=== PATIENT | male | born 1955 | race Caucasian/White ===

== ENCOUNTER 2023-09-17 16:50 | Emergency (ER) | payer MEDICARE, OTHER, SELFPAY ==
[2023-09-17 16:54] VITALS: BP 107/52
[2023-09-17 17:01] VITALS: BMI 43.1
[2023-09-17 17:19] VITALS: BP 107/87
[2023-09-17 17:19] LABS: % Basophils 0.5 % (0-2); % Eosinophils 0.3 % (0-6); % Immature Granulocytes 0.9 % (0-0.5); % Lymphocytes 2.3 % (20.5-51.1); % Monocytes 3.1 % (1.7-9.3); % Neutrophils 92.9 % (42.2-75.2); Absolute Basophils 0.1 10^3/uL (0-0.2); Absolute Immature Granulocytes 0.1 10^3/uL (0-0.05); Absolute Lymphocytes 0.3 10^3/uL (1.2-3.4); Absolute Monocytes 0.3 10^3/uL (0.1-0.6); Hematocrit 30.2 % (39.0-52.0); Hemoglobin 9.9 g/dL (13.0-18.0); Mean Corp Hgb Conc. 32.8 g/dL (33.0-37.0); Mean Corpuscular Hgb 29.1 pg (27.0-31.0); Mean Corpuscular Volume 88.8 fL (80.0-94.0); Mean Platelet Volume 9.8 fL (7.4-10.4); Nucleated Red Blood Cells % 0 % (-); Platelet Count 145 10^3/uL (130-400); Red Cell Dist. Width 15.2 % (11.5-14.5); White Blood Cell Count 10.8 10^3/uL (4.8-10.8)
--- NOTE | 2023-09-17 17:26 | ED.GENMED ---
History of Present Illness
General
Chief Complaint: Heart Rate Problem
Time Seen by Provider: 09/17/23 17:04
Travel History
Have you had any contact with someone who has COVID-19?: No
Do you have any symptoms of coronavirus? Fever > 100 degrees, chills, cough, shortness of breath, sore throat, loss of taste or smell, muscle aches, or headache?: No
History of Present Illness
History of Present Illness:
68-year-old male presents to the emergency department from [facility] due to acute heart rate elevation and low pulse oximetry. Patient reportedly had heart rates in the 200s with SpO2 of 90% on room air. On arrival he is on 6
L nasal cannula. He is on dialysis Thursday and Thursday and did receive his routine treatments this week. On arrival to the emergency department the patient's vital signs of stabilized and he reports he feels well with no symptoms.
Past History
Past History
ED Past Medical History: Arrthythmia, CHF, HTN and Other (Sleep apnea)
ED Past Surgical History: Orthopedic and Other (Gastric bypass)
Social History
Tobacco: Former smoker
Living: with family
Review of Systems
Review of Systems
Allergies reviewed?: Yes
All Other Systems: ROS reviewed and negative except as documented in HPI and ROS
Phy Exam
Physical Exam
Physical Exam:
GEN: Well appearing, NAD, WDWN
HEENT: Oral mucosa moist, no scleral icterus
Cardiac: Irregular rhythm, controlled rate, no murmurs
Lung: No respiratory distress, no tachypnea, lungs clear to auscultation bilaterally
Chest: Right upper chest wall dialysis port present, site clean and dry
MSK: No gross deformity or injuries
Skin: Good color, no pallor or jaundice, no rashes
Neuro: AO x3, moves all extremities freely
Psych: Calm, cooperative
Course
Orders/Labs/Results
Orders:
Orders
09/17/23 17:05
EKG [Electrocardiogram (*1)] Urgent
Reason for Study: Tachycardia
EKG- Treatment ONCE
09/17/23 17:07
Complete Blood Count/With Diff Urgent
Comprehensive Metabolic Panel Urgent
09/17/23 18:09
CR Chest - 2 Views Urgent
Comment:
Reason For Exam: SOB
Abnormal Lab Results
09/17/23
17:07
RBC 3.40 L 10^6/uL
(4.70-6.10)
Hgb 9.9 L g/dL
(13.0-18.0)
Hct 30.2 L %
(39.0-52.0)
MCHC 32.8 L g/dL
(33.0-37.0)
RDW 15.2 H %
(11.5-14.5)
Abs Immat Gran (auto) 0.1 H 10^3/uL
(0-0.05)
Absolute Neuts (auto) 10.0 H 10^3/uL
(1.4-6.5)
Absolute Lymphs (auto) 0.3 L 10^3/uL
(1.2-3.4)
Immature Gran % 0.9 H %
(0-0.5)
Neutrophils % 92.9 H %
(42.2-75.2)
Lymphocytes % 2.3 L %
(20.5-51.1)
Sodium 132 L mmol/L
(135-145)
Potassium 3.1 L mmol/L
(3.5-5.1)
Chloride 95 L mmol/L
(98-107)
BUN 29 H mg/dl
(9-20)
Creatinine 3.9 H mg/dL
(0.7-1.3)
Glucose 152 H mg/dl
(70-99)
Total Protein 5.6 L g/dl
(6.3-8.2)
Albumin 3.3 L g/dl
(3.5-5.0)
09/17/23 17:07
09/17/23 17:07
Vital Signs
Initial and Last Documented VS:
Initial Vital Signs
Temp Pulse Resp BP Pulse Ox
99.4 F 93 17 107/52 94
09/17/23 16:54 09/17/23 16:54 09/17/23 16:54 09/17/23 16:54 09/17/23 16:54
Last Documented Vital Signs
Temp Pulse Resp BP Pulse Ox
99.4 F 90 23 107/87 95
09/17/23 16:54 09/17/23 17:30 09/17/23 17:30 09/17/23 17:19 09/17/23 17:30
MDM/Problems Addressed
MDM/Problems Addressed:
Patient remained in rate controlled atrial fibrillation throughout emergency department stay. He was recent hospitalized at this facility due to acute renal failure, at which time he was noted to be in A-fib and was treated with amiodarone. He
remained in A-fib at time of discharge. He is anticoagulated and there is no clinical sign of acute congestive heart failure at this time. He remained free of hypoxia and his work of breathing is normal. No indication for admission, will be
discharged back to his nursing facility in stable condition
*Critical Care Note
Total Time (30-74mins, 75-104mins- exclusive of procedures): Not Applicable
ED Attending Note
-
Portions of this chart may have been created with voice recognition software.� Occasional wrong word or��sound alike� substitutions may have occurred due to the inherent limitations of voice recognition software.
Discharge Plan
Departure
Patient Disposition: Home (Routine Discharge)
Date of Disposition: 09/17/23
Time of Disposition: 20:09
Patient with high blood pressure during this ER visit?: No
Discharge Problem:
Atrial fibrillation with RVR
Instructions: Atrial Fibrillation (DC)
Prescriptions:
No Action
Eliquis 5 MG tablet
5 mg PO BID
lidocaine [LMX 4] 4 % Cream
1 applic topical TIDPRN PRN (Reason: burning around Martins) Qty: 0 0RF
amiodarone [Pacerone] 200 mg Tablet
200 mg PO DAILY Qty: 10 0RF
albuterol sulfate 2.5 mg /3 mL (0.083 %) Solution For Nebulization
2.5 mg inhalation R Q4HPRN PRN (Reason: Wheezing and SOB) Qty: 0 0RF
nicotine (polacrilex) 2 mg Gum
4 mg PO Q4HPRN PRN (Reason: nicotine withrawal) Qty: 0 0RF
midodrine 5 mg Tablet
5 mg PO Q4HPRN PRN (Reason: SBP<110) Qty: 0 0RF
pregabalin 25 mg Capsule
25 mg PO HS Qty: 30 0RF
melatonin 3 mg Tablet
3 mg PO HSPRN PRN (Reason: insomnia)
furosemide 80 mg Tablet
80 mg PO SUTUTHSA
Refresh Classic (PF) 1.4-0.6 % dropperette
1 drops BOTH EYES Q6HPRN PRN (Reason: dryness and redness)
Referrals:
Nikhil Chaney DO [Family Provider] -
Geno Helton DO [Active] -
Activity Restrictions/Additional Instructions:
Follow up with cardiology regarding your atrial fibrillation
Interventions
Interventions:
*Risk Screen - Suicide Last Done: 09/17/23 16:54
*General Assessment Last Done: 09/17/23 16:54
*Neglect/Abuse Screening Last Done: 09/17/23 16:54
ED- Fall Risk Assessment Last Done: 01/25/24 16:54
*ED COVID-19 Vaccine History Last Done: 09/17/23 16:54
ED- Cardiac Assessment Last Done: 09/17/23 16:54
ED- Pulmonary Assessment Last Done: 09/17/23 16:54
[2023-09-17 17:33] LABS: ALT (SGPT) 17 U/L (0-50); AST (SGOT) 22 U/L (17-59); Albumin 3.3 g/dl (3.5-5.0); Alkaline Phosphatase 96 U/L (38-126); Blood Urea Nitrogen 29 mg/dl (9-20); Calcium 8.4 mg/dl (8.4-10.2); Carbon Dioxide 23 mmol/L (22-30); Chloride 95 mmol/L (98-107); Estimated Creatinine Clearance 24 ml/min; Glucose 152 mg/dl (70-99); Potassium 3.1 mmol/L (3.5-5.1); Sodium 132 mmol/L (135-145); Total Bilirubin 0.8 mg/dl (0.2-1.3); Total Protein 5.6 g/dl (6.3-8.2); eGFR 15.81
[2023-09-17 18:00] VITALS: BP 105/50
[2023-09-17 19:00] VITALS: BP 107/49
[2023-09-17 21:29] VITALS: BP 107/49
[2023-09-17 21:31] VITALS: BP 107/49
== END 2023-09-17 21:39 | disposition home or self-care (01) ==
LOC: EMR 16:50
PROVIDERS: EMERGENCY PHYSICIAN Emergency Medicine; FAMILY PHYSICIAN Internal Medicine
DX: I48.91 Unspecified atrial fibrillation (principal); Z87.891 Personal history of nicotine dependence
CPT/HCPCS: 99284; 71046; 80053; 85025; 93005

== ENCOUNTER 2023-09-18 13:04 | Inpatient (IN) | payer MEDICARE, OTHER, SELFPAY ==
[2023-09-18] VITALS (31 sets, daily range): BP systolic 83–125; BP diastolic 45–90; BMI 41.5; BMI 41.2
--- NOTE | 2023-09-18 10:45 | EDRN ---
pt resting in stretcher, no s/s of distress, pt reports 'tremors', this RN noticed RCW dialysis catheter, this RN also noticed that catheter is visible through skin on the pts right neck, provider notified
[2023-09-18 10:57] LABS: Lactic Acid 3.3 mmol/L (0.7-2.0)
[2023-09-18 11:01] LABS: % Basophils 0.3 % (0-2); % Eosinophils 0.3 % (0-6); % Immature Granulocytes 2.8 % (0-0.5); % Lymphocytes 2.5 % (20.5-51.1); % Monocytes 3.3 % (1.7-9.3); % Neutrophils 90.8 % (42.2-75.2); Absolute Basophils 0.1 10^3/uL (0-0.2); Absolute Immature Granulocytes 0.5 10^3/uL (0-0.05); Absolute Lymphocytes 0.4 10^3/uL (1.2-3.4); Absolute Monocytes 0.5 10^3/uL (0.1-0.6); Absolute Neutrophils 14.4 10^3/uL (1.4-6.5); Hematocrit 30.9 % (39.0-52.0); Mean Corp Hgb Conc. 32.4 g/dL (33.0-37.0); Mean Corpuscular Hgb 29.6 pg (27.0-31.0); Mean Corpuscular Volume 91.4 fL (80.0-94.0); Mean Platelet Volume 10.1 fL (7.4-10.4); Nucleated Red Blood Cells % 0 % (-); Platelet Count 150 10^3/uL (130-400); Red Blood Cell Count 3.38 10^6/uL (4.70-6.10); Red Cell Dist. Width 15.6 % (11.5-14.5); White Blood Cell Count 15.9 10^3/uL (4.8-10.8)
[2023-09-18 11:02] LABS: ALT (SGPT) 17 U/L (0-50); AST (SGOT) 29 U/L (17-59); Albumin 3.5 g/dl (3.5-5.0); Alkaline Phosphatase 82 U/L (38-126); Blood Urea Nitrogen 43 mg/dl (9-20); Calcium 8.3 mg/dl (8.4-10.2); Carbon Dioxide 24 mmol/L (22-30); Chloride 94 mmol/L (98-107); Estimated Creatinine Clearance 19 ml/min; Glucose 130 mg/dl (70-99); Potassium 4.3 mmol/L (3.5-5.1); Sodium 129 mmol/L (135-145); Total Bilirubin 1.1 mg/dl (0.2-1.3); eGFR 11.74
[2023-09-18 11:11] LABS: NT-proBNP > 27000 pg/ml; Troponin I 0.086 ng/ml
[2023-09-18 11:34] LABS: Urine Albumin Trace (Neg - Trace); Urine Bilirubin 2+ (Negative); Urine Character Slightly Cloudy (Clear); Urine Color Yellow; Urine Glucose Negative (Negative); Urine Ketone Negative (Negative); Urine Leukocyte 2+ (Negative); Urine Nitrite Negative (Negative); Urine Occult Blood Negative (Negative); Urine Specific Gravity 1.015 (<1.030); Urine Urobilinogen Negative (Neg - 1+)
--- NOTE | 2023-09-18 11:37 | ED.GENMED ---
History of Present Illness
General
Chief Complaint: Heart Rate Problem
Source: patient
Exam Limitations: none
Time Seen by Provider: 09/18/23 10:45
Nursing documentation reviewed up to this point in time: agreed with
Travel History
Have you had any contact with someone who has COVID-19?: No
Do you have any symptoms of coronavirus? Fever > 100 degrees, chills, cough, shortness of breath, sore throat, loss of taste or smell, muscle aches, or headache?: No
History of Present Illness
History of Present Illness:
Patient is a 68-year-old man with a past medical history of end-stage renal disease who was last dialyzed 2 days ago, and presents with fever and chills. Patient reports he did not feel well and he did not go to dialysis today. He denies chest
pain and cough. He denies abdominal pain.
Past History
Past History
ED Past Medical History: Arrthythmia, CHF, HTN, Renal failure and Other (Sleep apnea)
ED Past Surgical History: Orthopedic and Other (Gastric bypass)
Social History
Tobacco: Former smoker
Alcohol: Other
Drug: Other
Personal: Other
Living: with family
Family History
Family History: Other
Review of Systems
Review of Systems
Allergies reviewed?: Yes
All Other Systems: ROS reviewed and negative except as documented in HPI and ROS
Constitutional: Reports fever, fatigue and chills
EENT: Reports no symptoms
Respiratory: Reports no symptoms
Cardiac: Reports no symptoms
ABD/GI: Reports no symptoms
: Reports no symptoms
Musculoskeletal: Reports no symptoms
Skin: Reports other (Skin redness and breakdown by right chest wall dialysis catheter)
Neurological: Reports no symptoms
Endocrine: Reports no symptoms
Hematologic/Lymphatic: Reports no symptoms
Psychiatric: Reports no symptoms
Phy Exam
Physical Exam
Physical Exam:
Physical Exam
General: Patient appears pale and chronically ill. Appears tired but answers simple questions
Neck: supple. No meningismus. Dry mucous membrane
Heart: Irregular
Lungs: no acute respiratory distress. clear bilaterally
Abdomen: normal bowel sounds. not tender. no CVAT
Neuro: alert and oriented. no focal neurological deficits
Skin: Warmth and erythema and skin opening around right chest wall dialysis catheter
Psychiatric: well kept. interactive and cooperative
Extremities: no edema. no calf tenderness. negative homans. good distal pulses
Course
Orders/Labs/Results
Orders:
Orders
09/18/23 10:25
Electrocardiogram (*1) Urgent
Reason for Study: Shortness of Breath
CR Chest - 2 Views Urgent
Comment:
Reason For Exam: shortness of breath
09/18/23 10:26
EKG- Treatment ONCE
09/18/23 10:37
Complete Blood Count/With Diff Urgent
Comprehensive Metabolic Panel Urgent
Lactic Acid Urgent
Pro-BNP [NT-proBNP] Urgent
Troponin I Urgent
Blood Culture Urgent
MELISSA Source: Blood/Venous
Specimen Description:
09/18/23 11:08
COVID-19 Antigen Urgent
Source: Nasal Swab
Urinalysis Reflex To Culture Urgent
Date Specimen was Collected: 09/18/23
Time Specimen was Collected: 11:02
Urine Microscopic Reflex Cult Urgent
Influenza A+B Rapid Molecular Urgent
MELISSA Source: Nasal Swab
Specimen Description:
Date Specimen was Collected: 09/18/23
Time Specimen was Collected: 11:02
Urine Culture Urgent
MELISSA Source: U
Specimen Description:
Date Specimen was Collected: 09/18/23
Time Specimen was Collected: 11:02
09/18/23 11:32
Piperacillin/Tazo 4.5 Gram [Zosyn] 4.5 gram in 100 ml IV NOW
09/18/23 12:16
Piperacillin/Tazo 2.25 Gram [Zosyn] 2.25 grams in 50 ml IV NOW
09/18/23 12:22
0.9% Sodium Chloride 1000 ml [Nss] 1,000 ml IV BOLUS
09/18/23 12:30
Admit/Transfer Patient As Directed
Co-Sign Provider:
Level of Care: Inpatient admission
Assign to:: ICU
Physician / Group: Fernando
Diagnosis: Septic shock
Reason for Hospitalization: Sepsis, IV antibiotics
Expected length of stay greater than two midnights?: Yes
ELOS- Estimated Length of Stay in days: 4
I certify the patient meets the requirements for IP care: Yes
09/18/23 12:31
Code Status As Directed
Resuscitation Status: Full Code
Abnormal Lab Results
09/18/23 09/18/23
10:37 11:08
WBC 15.9 H 10^3/uL
(4.8-10.8)
RBC 3.38 L 10^6/uL
(4.70-6.10)
Hgb 10.0 L g/dL
(13.0-18.0)
Hct 30.9 L %
(39.0-52.0)
MCHC 32.4 L g/dL
(33.0-37.0)
RDW 15.6 H %
(11.5-14.5)
Abs Immat Gran (auto) 0.5 H 10^3/uL
(0-0.05)
Absolute Neuts (auto) 14.4 H 10^3/uL
(1.4-6.5)
Absolute Lymphs (auto) 0.4 L 10^3/uL
(1.2-3.4)
Immature Gran % 2.8 H %
(0-0.5)
Neutrophils % 90.8 H %
(42.2-75.2)
Lymphocytes % 2.5 L %
(20.5-51.1)
Sodium 129 L mmol/L
(135-145)
Chloride 94 L mmol/L
(98-107)
BUN 43 H mg/dl
(9-20)
Creatinine 5.0 H* mg/dL
(0.7-1.3)
Glucose 130 H mg/dl
(70-99)
Lactic Acid 3.3 H mmol/L
(0.7-2.0)
Calcium 8.3 L mg/dl
(8.4-10.2)
Troponin I 0.086 H* ng/ml
Total Protein 6.0 L g/dl
(6.3-8.2)
Urine Bilirubin 2+ A
(Negative)
Leukocyte Esterase Rfl 2+ A
(Negative)
Urine WBC (Reflex) 70-80 A /HPF
(0-5)
Urine Bacteria (Reflex) Many A
(Negative)
09/18/23 10:37
09/18/23 10:37
Vital Signs
Initial and Last Documented VS:
Initial Vital Signs
Temp Pulse Resp BP Pulse Ox
100.7 F H 82 20 98/55 95
09/18/23 10:09/18/23 10:09/18/23 10:29 09/18/23 10:29 09/18/23 10:29
Last Documented Vital Signs
Temp Pulse Resp BP Pulse Ox
100.7 F H 82 20 98/55 94
09/18/23 10:29 09/18/23 10:29 09/18/23 10:09/18/23 10:29 09/18/23 10:29
MDM/Problems Addressed
Differential Diagnosis Includes:
Infected dialysis catheter, bacteremia, pneumonia
MDM/Problems Addressed:
Patient presents with acute lethargy and fever
Chronic conditions affecting care: Kidney disease
*Radiology
Radiology exam reviewed: preliminary read by ED provider (Vascular congestion on chest x-ray. Chest x-ray read by me) and radiology read reviewed
*Pulse Oximetry
Patient hypoxic: no
*EKG
Interpreted by ED Provider?: Yes
Interpretation: abnormal
Comparison EKG: no changes
Rate: normal
Rhythm: atrial flutter
[place]: normal axis
Interval: normal interval
QRS Pattern: normal QRS
Ischemia: non-specific ST changes
*Cooler Man Interpretation
Rate: normal
Interpretation: abnormal
Rhythm: atrial flutter
*Critical Care Note
Total Time (30-74mins, 75-104mins- exclusive of procedures): 30 minutes
comment:
30 minutes of critical care given to patient including reviewing his recent admission, reassessing his blood pressure, discussing the case with nephrology and the hospitalist
Data Reviewed
Review of Other/Old Records Reveals: Discharge Summary (Discharge summary reviewed from 08/2023 when patient was admitted for encephalopathy due to metabolic abnormalities)
Source: patient
Prescriptions/Medications Considered But Not Given:
IV Zosyn given for likely bacteremia related to infected dialysis catheter
Further Testing Considered But Not Given:
IV fluids considered, however, given patient missed dialysis today and has pulmonary edema on chest x-ray, I decided to hold off on this for now
Patient Management
Discussion with other providers: Hospitalist and Other (Nephrology on-call)
Escalation/DeEscalation of care consider admission/obs:
Given my concerns for bacteremia and possible sepsis related to a right dialysis catheter, decision made to admit patient for IV antibiotics.
ED Attending Note
-
Portions of this chart may have been created with voice recognition software.� Occasional wrong word or��sound alike� substitutions may have occurred due to the inherent limitations of voice recognition software.
Discharge Plan
Departure
Patient Disposition: Admit
Date of Disposition: 09/18/23
Time of Disposition: 11:31
Admit to: Telemetry
Presentation/result/management discussed w/ accepting MD/DO: Hospitalist
Patient with high blood pressure during this ER visit?: No
Condition: Fair
Covid-19: Not Applicable
Discharge Problem:
Fluid overload, Fever, Hemodialysis catheter infection
Prescriptions:
No Action
Eliquis 5 MG tablet
5 mg PO BID
lidocaine [LMX 4] 4 % Cream
1 applic topical TIDPRN PRN (Reason: burning around Martins) Qty: 0 0RF
albuterol sulfate 2.5 mg /3 mL (0.083 %) Solution For Nebulization
2.5 mg inhalation R Q4HPRN PRN (Reason: Wheezing and SOB) Qty: 0 0RF
nicotine (polacrilex) 2 mg Gum
4 mg PO Q4HPRN PRN (Reason: nicotine withrawal) Qty: 0 0RF
midodrine 5 mg Tablet
5 mg PO Q4HPRN PRN (Reason: SBP<110) Qty: 0 0RF
melatonin 3 mg Tablet
3 mg PO HSPRN PRN (Reason: insomnia)
furosemide 80 mg Tablet
80 mg PO SUTUTHSA
Refresh Classic (PF) 1.4-0.6 % dropperette
1 drops BOTH EYES Q6HPRN PRN (Reason: dryness and redness)
levothyroxine 50 mcg Tablet
50 mcg PO DAILY@0700
gabapentin 300 mg Capsule
300 mg PO TID
amiodarone [Pacerone] 200 mg tablet
200 mg PO DAILY
Referrals:
Nikhil Chaney DO [Family Provider] -
Interventions
Interventions:
*Risk Screen - Suicide Last Done: 09/18/23 10:29
*General Assessment Last Done: 09/18/23 10:29
*Neglect/Abuse Screening Last Done: 09/18/23 10:29
ED- Fall Risk Assessment Last Done: 09/18/23 10:29
*ED COVID-19 Vaccine History Last Done: 09/18/23 10:29
ED- Cardiac Assessment Last Done: 09/18/23 10:29
ED- Pulmonary Assessment Last Done: 09/18/23 10:29
[2023-09-18 11:56] LABS: COVID-19 Antigen Negative (Negative)
--- NOTE | 2023-09-18 12:23 | HPS.HSE ---
Family Physician
-
Family Physician: Nikhil Chaney, DO
Chief Complaint
-
Fever, chills
History of Present Illness
68-year-old male with ESRD on dialysis here with complaints of fevers and chills. He is due for dialysis today.
Was seen in the emergency room yesterday for evaluation of tachycardia and hypoxia but was discharged.
Transfer back to the emergency room from his nursing facility today for fever and chills.
Medical History
Past Medical History
Past Medical History: Reports Other
Additional Past Medical History:
ESRD, dialysis Thursday
Paroxysmal atrial fibrillation
Chronic heart failure preserved EF
Chronic peripheral neuropathy
Essential hypertension
DENISSE
Gout
Morbid obesity
Past Surgical History: Reports Orthopedic and Other
Additional Past Surgical History:
Gastric bypass
Social History
Tobacco: Former Smoker
Alcohol: Former
Drug: None
Personal:
Living: [facility]
Family History
Family History: Not pertinent
Allergies / Home Medications
Allergies reflects when Allergies were last updated in [employer].
Home Medications with original date entered in [employer]
Allergy/Medication List:
Allergies
Allergy/AdvReac Type Severity Reaction Status Date / Time
cat dander Allergy sneezing, Verified 09/17/23 17:03
itchy eyes
vancomycin Allergy Rash Verified 09/17/23 17:03
Home Medications
apixaban 5 mg tablet (Eliquis) 5 mg PO BID Blood clot prevention/tx/AFib 06/07/21
albuterol sulfate 2.5 mg/3 mL (0.083 %) solution for nebulization 2.5 mg (3 mL) inhalation R Q4HPRN PRN Wheezing and SOB #0 mL 09/01/23
lidocaine 4 % topical cream (LMX 4) 1 applic topical TIDPRN PRN burning around Martins #0 grams 09/01/23
midodrine 5 mg tablet 5 mg PO Q4HPRN PRN SBP<110 #0 tabs 09/01/23
nicotine (polacrilex) 2 mg gum 4 mg PO Q4HPRN PRN nicotine withrawal #0 ea 09/01/23
furosemide 80 mg tablet 80 mg PO SUTUTHSA Fluid Retention/Swelling 09/17/23
melatonin 3 mg tablet 3 mg PO HSPRN PRN insomnia 09/17/23
polyvinyl alcohol-povidone (PF) 1.4 %-0.6 % eye drops in a dropperette (Refresh Classic (PF)) 1 drops BOTH EYES Q6HPRN PRN dryness and redness 09/17/23
amiodarone 200 mg tablet (Pacerone) 200 mg PO DAILY AFib 09/18/23
gabapentin 300 mg capsule 300 mg PO TID neuropathy 09/18/23
levothyroxine 50 mcg tablet 50 mcg PO DAILY@0700 Thyroid 09/18/23
Review of Systems
-
History Source: Patient
A 12 point ROS was completed and negative except as noted: Yes
Constitutional: Reports Fever, Fatigue and Chills
Physical Exam
Vital Signs
Vital Signs
Temp Pulse Resp BP Pulse Ox
100.7 F H 82 20 98/55 94
09/18/23 10:29 09/18/23 10:29 09/18/23 10:29 09/18/23 10:29 09/18/23 10:29
Physical Exam
General: Well Developed, Well Nourished, No Apparent Distress and Comfortable
HEENT: NormoCephalic, Anicteric and Moist mucous membranes
Respiratory: Clear
Cardiac: S1/S2 and Regular Rhythm
GI: Soft, Non Tender and Non Distended
Genito-urinary: Deferred by me
Musculoskeletal: No Clubbing, No Cyanosis and No Edema
Skin: Warm and Dry
Neuro: AO x 3
Hematologic/Lymphatic: No Lymphadenopathy
Psych: Calm
Laboratory Results
-
09/18/23 10:37
09/18/23 10:37
Laboratory Results
Lactic Acid 3.3 mmol/L (0.7-2.0) H 09/18/23 10:37
Total Bilirubin 1.1 mg/dl (0.2-1.3) 09/18/23 10:37
AST 29 U/L (17-59) 09/18/23 10:37
ALT 17 U/L (0-50) 09/18/23 10:37
Alkaline Phosphatase 82 U/L (38-126) 09/18/23 10:37
Troponin I 0.086 ng/ml H* 09/18/23 10:37
Impression/Plan
-
Septic shock -possibly due to infected dialysis catheter. Admit to ICU, give IV fluid bolus, may need vasopressors. Check blood cultures. Broad-spectrum antibiotics. Consult perianesthesia rn, ID.
Will need dialysis catheter removed if we prove that it is infected.
Lactic acidosis due to sepsis.
Troponin elevation -likely non-[place] troponin elevation in the setting of sepsis, ESRD. No chest pain. Troponins were also elevated during his recent hospitalization.
ESRD -on dialysis Thursday. Consult nephrology to dialyze today.
Hyponatremia -sodium 129. Should correct with dialysis.
Paroxysmal atrial fibrillation -continue amiodarone, Eliquis.
Hypothyroidism -continue Synthroid.
Chronic heart failure preserved EF - stable.
Chronic peripheral neuropathy
Chronic normocytic anemia -hemoglobin stable.
DENISSE
Morbid obesity due to excess calories
Full code
PT/OT
Left a voicemail for patient's to call me back.
[2023-09-18 12:27] LABS: Urine Bacteria Many (Negative); Urine Red Blood Cell 0-2 /HPF (0-2)
[2023-09-18] MEDS: ZOSYN 50 IV (12:27)
[2023-09-18] MEDS: NSS 1000 IV (12:27)
[2023-09-18 12:28] LABS: Urine White Cell 70-80 /HPF (0-5)
--- NOTE | 2023-09-18 12:37 | EDRN ---
the pt is resting in stretcher in the lowest position, side rails up x2, call yoo within reach, HOB elevated, no c/o pain, no c/o chest pain, no c/o SOB, Afib in the 80's on monitor, last BP 90/59 (70), IVF 1,000cc bolus administered along with IV
ABX, the pt is currently on RA Sp02 96%, will continue to monitor the pt closely
--- NOTE | 2023-09-18 14:57 | CON.MD ---
Consultation - Medical
-
IMP:
Septic shock -suspected infected dialysis catheter vs UTI
Troponin elevation -likely non-DC
Recent YOHANNES with CKD 3B vs 4, HD dependent since 08/18/23-[facility] at [facility]
Heart failure with preserved EF
Hypertension with relative hypotension
History of gastric bypass
Back pain
Hyponatremia
Paroxysmal atrial fibrillation recent ablation at [facility]
Hypothyroidism
Chronic peripheral neuropathy
Chronic normocytic anemia
DENISSE
Morbid obesity due to excess calories
Plan:
A/w fever,suspected infected HD catheter site and sepsis however he does c/o dysuria too
plan HD today as per schedule
likely d/c catheter and send tip if cx are positive
BP improving post 1lit NS
CXR mild CHF, resp status seem at baseline
abx per primary
[id number]
--- NOTE | 2023-09-18 15:08 | PHA.VAN.IN ---
Assessment
- Assessment
Renal Function: Patient has ESRD, on chronic Hemodialysis
Hemodialysis Schedule: MWF
Concomitant Antimicrobials: cefepime
- Previous Dosing Experience
Previous Regimen: NONE
Plan
- Plan
Initial / Loading Dose: 1500MG
Maintenance Regimen: DOSING BY RANDOM LEVELS
Monitoring: RANDOM VANCOMYCIN LEVEL 09/19/23 AM
Pharmacokinetics Vancomycin I
- -
Patient Age: 68
Patient Sex: Male
Vancomycin Day #: 1
Indication: Bacteremia
Requesting Provider: LIZETT
Pertinent Antimicrobial Allergies:
Allergies
vancomycin Allergy (Verified 09/17/23 17:03)
Rash
Verified with patient - appears to be infusion rxn 09/18/23
Height / Weight:
Height 5 ft 10 in
Actual Weight 131.3 kg
- Vital Signs / Lab Results
Temp Pulse Resp BP Pulse Ox
100.7 F H 103 32 125/70 95
09/18/23 10:29 09/18/23 13:15 09/18/23 13:15 09/18/23 13:00 09/18/23 13:15
Lab Results - Hematology
09/18/23
10:37
WBC 15.9 H
Lab Results - Chemistry
09/18/23
10:37
BUN 43 H
Creatinine 5.0 H*
Estimated Creat Clear 19
Albumin 3.5
09/18/23
10:37
Lactic Acid 3.3 H
Lab Results - Urine
09/18/23
11:08
Urine Nitrite (Reflex) Negative
Leukocyte Esterase Rfl 2+ A
Urine WBC (Reflex) 70-80 A
Ur Squamous Epith Cells 6-10
Urine Bacteria (Reflex) Many A
Microbiology Results
09/18/23 11:08 Influenza Types A & B (HANNAH) - Final
Nasal Swab Negative for Influenza A & B, NAAT
Negative results must be combined with clinical observations
and patient history.
Nucleic Acid Amplification test (NAAT)performed on the
[email or web address] platform.
[2023-09-18] MEDS: VANCOCIN 300 MG IV (15:26)
[2023-09-18] MEDS: VANCOCIN 300 ML IV (15:26)
--- NOTE | 2023-09-18 15:28 | EDRN ---
this RN noticed that the pts Sp02 dipped to 92%, this RN notified provider and 2L NC was placed on the pt and the Sp02 came up to 96%, this RN also notified the provider that the pt is febrile at 101.5
[2023-09-18] MEDS: TYLENOL 650 MG PO ×2 (15:31→20:54)
--- NOTE | 2023-09-18 15:33 | EDRN ---
the pt received PRN tylenol per providers orders, the pt is resting in stretcher in the lowest position, side rails up x2, call yoo within reach, HOB elevated, Afib in the 80-90's, last BP 120/65 (79), the pt is currently on 2L NC Sp02 96%, no c/o
pain, no s/s of distress, the pt continues to have tremors of the hands intermittently, this RN will call verbal report to ICU
--- NOTE | 2023-09-18 15:43 | EDRN ---
this RN placed a non occlusive dressing on right neck wound, provider notified
--- NOTE | 2023-09-18 15:54 | EDRN ---
verbal report called to the receiving NIPPING MACHINE OPERATOR, this RN did notify provider of the pts sodium level, no new orders received
[2023-09-18] MEDS: ProAmatine 5 MG PO (16:15)
[2023-09-18 16:18] LABS: Lactic Acid 1.7 mmol/L (0.7-2.0)
--- NOTE | 2023-09-18 16:19 | CM ---
Patient admitted to today from [facility]. Patient admitted to the [facility] from 09/03-09/18. Patient is a HD patient at facility and per Noemi at SNF has used 15 days. Noemi to call back with functional status
and LTC vs STC status pending review of facility documentation. CM will continue to follow for discharge planning needs.
Plan; return to SNF pending confirmation of status and family/patient choice.
[2023-09-18] MEDS: NEURONTIN 300 MG PO (16:27)
[2023-09-18] MEDS: MANNITOL 12.5 GRAMS IV ×2 (16:45→17:57)
[2023-09-18] MEDS: FLEXBUMIN 25% FOR HEMODIALYSIS 12.5 GRAMS IV ×2 (17:45→17:56)
[2023-09-18 17:51] LABS: INR 2.68; PT 28.9 Sec (11.4-14.6)
[2023-09-18 17:52] LABS: APTT 47.9 Sec (23.4-35.0)
--- NOTE | 2023-09-18 17:56 | CON.INTV ---
Consultation
Consultation Request
Date/Time Consultation Requested: 09/18/2023 - 135
Date/Time Consultation Performed: 09/18/2023 - 1719
Requesting Provider: Dr. King
Performing Provider: Dr. Wilde
Reason for Consultation: Severe sepsis/hypotension with impending shock
Medical History
-
Chief Complaint: Fever
History of Present Illness:
68-year-old morbidly obese male former tobacco smoker with a past medical history of recent YOHANNES on CKD nondependent on HD MWF, HFpEF, hypertension now with relative hypotension, paroxysmal A-fib s/p ablation at [facility] on Eliquis, hypothyroidism, and
DENISSE who presents with fevers and chills from [facility]. Staff called 911 as the patient had increased heart rate with tremors. EMS noted the patient was in A-fib with heart rate in the 80s, placed him on 2 L/min and sats improved
from low 90s to the mid 90s. Patient endorsed shortness of breath without chest pain. He was confused but able to answer questions appropriately and move all extremities. Patient was not dialyzed today even though it is his dialysis day. Patient
has a right sided permacath which was placed on August 27, 2023, as he was hospitalized from 08/17/202309/02/2023 where he was diagnosed with YOHANNES on CKD from excessive NSAID use and required new onset dialysis after trial of failed diuretic
therapy did not improve kidney function during that hospitalization. He was discharged to SNF.
Today in the ER, his right-sided permacath is showing at the insertion site and there is some discharge from that area as well. Patient was febrile in the ER to 100.7, blood pressure 125/70, saturating 100% on room air. Labs showed leukocytosis to
15.9, Hb of 10, platelets 150, troponin 0.086, proBNP >27,000, hypomagnesemic to 1.4, hyponatremia to 129, he does make urine which showed +2 leukocyte esterase. He was given 1 L NS 0.9% as a bolus and started on Zosyn. Blood pressure was variable
dropping from the 120s down to the 80s/50s, and labs showed lactic acidosis to 3.3. Due to concern for septic shock he was transferred to ICU for further care, and family resource coordinator services consulted for additional management/recommendations.
When I saw the patient he was here in the ICU in no acute distress receiving dialysis via his right-sided permacath. He is a poor historian. He currently denies shortness of breath. He is in A-fib with heart rate in the 90s. Current SBP in the
120s. He denies chest pain, headache, abdominal pain, fevers or chills.
PMHx: YOHANNES on CKD now dependent on HD MWF, A-fib, chronic HFpEF, hypertension, DENISSE, gout, obesity, hypothyroidism, chronic peripheral neuropathy, chronic normocytic anemia
PSHx: Gastric bypass, A-fib ablation
Past Medical History
Past Medical History: Other (Above as per HPI)
Past Surgical History: Other (Above as per HPI)
Social History
Tobacco: Former Smoker
Alcohol: Former
Drug: None
Personal:
Living: Halfway
Family History
Family History: Reviewed & Not Pertinent
Allergies / Home Medications
Allergies
Allergy/AdvReac Type Severity Reaction Status Date / Time
cat dander Allergy sneezing, Verified 09/17/23 17:03
itchy eyes
vancomycin Allergy Rash Verified 09/17/23 17:03
Home Medications
Medication Instructions Recorded Confirmed Last Taken Type
apixaban 5 mg tablet (Eliquis) 5 mg PO BID Blood clot 06/07/21 09/18/23 06/19/21 19:00 History
prevention/tx/AFib
albuterol sulfate 2.5 mg/3 mL 2.5 mg (3 mL) inhalation R Q4HPRN 09/01/23 09/18/23 Unknown Rx
(0.083 %) solution for nebulization PRN Wheezing and SOB #0 mL
lidocaine 4 % topical cream (LMX 4) 1 applic topical TIDPRN PRN 09/01/23 09/18/23 Unknown Rx
burning around Martins #0 grams
midodrine 5 mg tablet 5 mg PO Q4HPRN PRN SBP<110 #0 tabs 09/01/23 09/18/23 Unknown Rx
nicotine (polacrilex) 2 mg gum 4 mg PO Q4HPRN PRN nicotine 09/01/23 09/18/23 Unknown Rx
withrawal #0 ea
furosemide 80 mg tablet 80 mg PO SUTUTHSA Fluid 09/17/23 09/18/23 Unknown History
Retention/Swelling
melatonin 3 mg tablet 3 mg PO HSPRN PRN insomnia 09/17/23 09/18/23 Unknown History
polyvinyl alcohol-povidone (PF) 1 drops BOTH EYES Q6HPRN PRN 09/17/23 09/18/23 Unknown History
1.4 %-0.6 % eye drops in a dryness and redness
dropperette (Refresh Classic (PF))
amiodarone 200 mg tablet (Pacerone) 200 mg PO DAILY AFib 09/18/23 09/18/23 Unknown History
gabapentin 300 mg capsule 300 mg PO TID neuropathy 09/18/23 09/18/23 Unknown History
levothyroxine 50 mcg tablet 50 mcg PO DAILY@0700 Thyroid 09/18/23 09/18/23 Unknown History
Review of Systems
-
History Source: Patient
All other systems: Negative unless noted (12 point ROS performed and is negative unless mentioned above.)
Vitals / Labs / Diagnostic Testing
Vital Signs
Temp Pulse Resp BP Pulse Ox
98.1 F 82 26 106/54 95
09/18/23 16:19 09/18/23 17:00 09/18/23 17:00 09/18/23 17:00 09/18/23 17:00
Lab Data
09/18/23 10:37
09/18/23 10:37
Microbiology
09/18/23 11:08 Nasal Swab Influenza Types A & B (HANNAH) - Final
Negative for Influenza A & B, NAAT
Negative results must be combined with clinical observations
and patient history.
Nucleic Acid Amplification test (NAAT)performed on the
[employer] NOW platform.
Diagnostic Testing:
Physical Exam
-
HEENT: Normocephalic and Anicteric
Cardiovascular: Irregular Rhythm (Irregularly irregular) and Other (Normal heart rate)
Respiratory: Clear, Wheeze (Negative), Rales (Negative) and Rhonchi (Negative)
GI: Soft, Non Distended and Non Tender
Neurology: Awake and Alert
Skin: Warm and Dry
General: Comfortable and Chills (Negative)
Assessment
-
Assessment: 68-year-old morbidly obese male former tobacco smoker with a past medical history of recent YOHANNES on CKD nondependent on HD MWF, HFpEF, hypertension now with relative hypotension, paroxysmal A-fib s/p ablation at [facility] on ,
hypothyroidism, and DENISSE who presents with fevers and chills from [facility]. There was concern for a right-sided permacath infection as part of the catheter was visible with discharge seen. He was BIBEMS and found to be hypotensive.
IV fluids given, antibiotic started and he was transferred to ICU where he underwent HD due to concern for septic shock with further worsening blood pressure during dialysis. Sand Polisher service is consulted for additional
management/recommendations.
Chronic conditions [employer]: YOHANNES on CKD now dependent on HD MWF, A-fib, chronic HFpEF, hypertension, DENISSE, gout, obesity, hypothyroidism, chronic peripheral neuropathy, chronic normocytic anemia,
Impression:
#Septic shock due to suspected perma-cath infection in setting of UTI
#Lactic acidosis due to above
#UTI
#Elevated troponin - likely type II MO in setting of shock
#YOHANNES on CKD now dependent on HD MWF
#Paroxysmal A-fib on is
#Morbid obesity
#Former tobacco use
Plan:
- Continue HD in ICU (without UF due to low BP) and monitor HDN closely; may need vasopressors to maintain MAP>65
- Keep HR <110; replete K>4, Mg>2
- Continue broad spectrum ABx with vanc/cefepime for now
- Nephrology consulted
- Will need permacath to be removed, and ideally give him few days of a line holiday, and then replace HD catheter on Thu- with a Kranthi until infection clears, and then he can get perma-cath as his discharge date approaches (assuming he
continues to improve)
- ID consulted --> right sided perma-cath site at his neck was swabbed --> follow up this Cx and check blood Cx and UA with UCx
- Trend lactate level until <2mmol/L
- continue to trend troponin level until begins to downtrend; if rises further then consider cardiolgoy consult
- Maintain SpO2 >90-94% with supplemental O2 as needed
- Maintain euglycemia with goal BG 140�180
- DVT prophylaxis
Critical care statement (Patient seen and evaluated on 09/18/2023): A total of 40 minutes of critical care time was provided for this patient today. This includes management of unstable vital signs, evaluation of the patient at bedside, reviewing the
patient's pertinent medical records including radiographs, microbiology, laboratory evaluations, and discussion with primary team, consultants, pharmacy, nutrition, physical therapy, case management, charge nurse, critical care nursing, and
respiratory therapy.
Data:
CXR 09-18-2023:
Low lung volumes.
Cardiomegaly with slightly prominent pulmonary vascularity, possibly representing mild CHF versus acute pulmonary edema.
[2023-09-18] MEDS: RETACRIT 3000 UNITS IV (17:58)
[2023-09-18 18:05] LABS: Troponin I 0.092 ng/ml
--- NOTE | 2023-09-18 18:11 | PTCARENOTE ---
Pt arrived to ICU via stretcher approx 1615 from ER. Complete assessment and admission done. Wound consult put in for R neck open wound from R upper arm HD cath placement 08/18/23, wound not approximated. Cleaned with NS and 2x2 drsg applied. Foam
drsgs applied to reddened sacrum and bilat heels for protection. Moisture wound noted in sacral rectal fold, barrier oint applied. Wound care consulted. Pt with hx of MRSA in Dec, MRSA swab obtained and sent to lab. Pt put on modified enhanced
isolation. Pt awake and oriented to name and place, forgetting the year. HD started at 1700 in room, 5 mg po midodrine given for hypotensive on arrival. R upper arm HD cath present. Abd obese, +BSs. Pt oliguric. Lactic 3.3 in ER, repeat= 1.7. PT/PTT
and trop sent on arrival. Call at pt's side in reach.
--- NOTE | 2023-09-18 18:24 | CON.ID ---
Consultation
-
Date/Time Consultation Requested: 09/18/2023 1359
Date/Time Consultation Performed: 09/18/2023 1800
Requesting Provider: Dr. King
Performing Provider: Dr. Liao
Reason for Consultation: Fever
Chief Complaint / Past History
History of Present Illness
Zenon Frias is a 68-year-old male with a significant past medical history of ESRD�HD being evaluated at the request of Dr. King in regards to fever. The patient presented to [facility] ER on 09/17/2023 from a rehab facility secondary to
tachycardia and depressed pulse ox. Workup was unrevealing, and he was discharged, but he returns today secondary to fever and chills. He reports he did not feel well and did not go to his dialysis session today. No history of chest pain or
cough. No abdominal pain.
Since presentation he has developed fever to 101 degrees. Additionally, he is found to have a leukocytosis today, and Infectious Diseases is asked to comment upon antibiotic management.
Further history obtained indicates that the patient recently has started hemodialysis. Temporary catheter was placed on 08/18/2023, with a permanent tunneled HD catheter being placed on 08/27/2023 in the right IJ area. The patient reports that he
occasionally is having discomfort in the right neck area. He admits to rigors over the past several days. He denies any cough.
Past History
Additional Past Medical History:
ESRD�HD
Paroxysmal A-fib
CHF
Peripheral neuropathy
HTN
DENISSE
Gout
Morbid obesity
Additional Past Surgical History:
Gastric bypass
Allergy History:
cat dander Allergy (Verified 09/17/23 17:03)
sneezing, itchy eyes
vancomycin Allergy (Verified 09/17/23 17:03)
Rash
Medications Reviewed: Yes
Current Antibiotics:
Vancomycin
Cefepime
Social History
Tobacco: Non-Smoker
Alcohol: None
Drug: None
Employment: Not Employed
Review of Systems
Vital Signs
Temp Pulse Resp BP Pulse Ox
98.1 F 82 26 106/54 95
09/18/23 16:19 09/18/23 17:00 09/18/23 17:00 09/18/23 17:00 09/18/23 17:00
Physical Exam
Physical Exam
Constitutional: No Acute Distress, Comfortable and Non-toxic
Eyes: No Conjunctival Hemorrhage and Sclera Anicteric
Oral: No Thrush and No Ulcers
Cardiovascular: S1/S2; Negative S3/S4 or Murmur
Pulmonary: Clear and Non Labored; Negative Wheezes, Rales or Rhonchi
Gastrointestinal: Soft, Non Tender, Non Distended and Normal Bowel Sounds
Genito-Urinary: Negative Martins
Extremities: Edema; Negative Cyanosis or Erythema
Neurological: Other (Somnolent but arousable. Conversant.)
Psychological: Calm
Lines: HD Cath (Right IJ tunneled HD catheter with purulence at the proximal insertion site.)
.
Lab / Diagnostic Study Results
09/18/23 10:37
09/18/23 10:37
Abs Immat Gran (auto) 0.5 10^3/uL (0-0.05) H 09/18/23 10:37
Absolute Neuts (auto) 14.4 10^3/uL (1.4-6.5) H 09/18/23 10:37
Absolute Lymphs (auto) 0.4 10^3/uL (1.2-3.4) L 09/18/23 10:37
Absolute Monos (auto) 0.5 10^3/uL (0.1-0.6) 09/18/23 10:37
Absolute Basos (auto) 0.1 10^3/uL (0-0.2) 09/18/23 10:37
Immature Gran % 2.8 % (0-0.5) H 09/18/23 10:37
Neutrophils % 90.8 % (42.2-75.2) H 09/18/23 10:37
Lymphocytes % 2.5 % (20.5-51.1) L 09/18/23 10:37
Monocytes % 3.3 % (1.7-9.3) 09/18/23 10:37
Eosinophils % 0.3 % (0-6) 09/18/23 10:37
Basophils % 0.3 % (0-2) 09/18/23 10:37
PT 28.9 Sec (11.4-14.6) H 09/18/23 17:27
INR 2.68 09/18/23 17:27
Lactic Acid 1.7 mmol/L (0.7-2.0) 09/18/23 15:46
Ur Squamous Epith Cells 6-10 /LPF (Few) 09/18/23 11:08
Microbiology Results
Micro:
09/18/23 17:27 MRSA Screen - Pending
Nose
09/18/23 11:08 Influenza Types A & B (HANNAH) - Final
Nasal Swab Negative for Influenza A & B, NAAT
Negative results must be combined with clinical observations
and patient history.
Nucleic Acid Amplification test (NAAT)performed on the
[employer] NOW platform.
09/18/23 11:08 Urine Culture - Pending
Urine
09/18/23 10:37 Blood Culture - Pending
Blood/Venous
Assessment / Plan
Fevers
Suspected CLABSI (HD catheter; POA)
Leukocytosis
Anemia
Hyponatremia
ESRD�HD
Paroxysmal A-fib
CHF
Peripheral neuropathy
HTN
DENISSE
Gout
Morbid obesity
Recommendations:
Continue with empiric vancomycin and cefepime (agree with change from Zosyn)
I have obtained a wound culture from the proximal site and will send for further workup.
Given appearance of HD catheter, it is likely infected, and would recommend removal.
Follow pending blood cultures and wound culture.
Trend white count and temperature curve.
Care Review
Plan reviewed with: Physician (Critical Care; Nephrology)
[2023-09-18 18:53] LABS: Magnesium 1.4 mg/dl (1.6-2.3)
--- NOTE | 2023-09-18 19:04 | W.PN.NEPH.HD ---
Assessment
-
pt seen during HD
vitals stable with midodrine
limited UF only
HD catheter site completely examined pus and edema noted at proximal insertion site
will need to remove catheter and line holiday -IR notified, plan tomorrow
abx per ID
d/w ICU and ID
Progress Note - Hemodialysis
-
Date of Service: September 18, 2023
Duration: 30 minutes and 3 hours
Potassium Bath: 2
Calcium Bath: 2.5
Opti-Dialyzer: 160
Ultrafiltration: Other (1kg)
Blood Flow: 400
Dialysate Flow: 600
Heparin: no
EPO: [id number]
[2023-09-18 19:24] LABS: Hepatitis B Surface Antigen Negative (Negative)
[2023-09-18] MEDS: MAGNESIUM SULFATE 50 IV (19:39)
--- NOTE | 2023-09-18 19:58 | W.PN.SEPSIS ---
Sepsis
Vital Signs
Temp Pulse Resp BP Pulse Ox
98.1 F 82 26 106/54 95
09/18/23 16:19 09/18/23 17:00 09/18/23 17:00 09/18/23 17:00 09/18/23 17:00
Physical Exam
Physical Exam:
A focused exam was performed after fluid resuscitation.
Capillary Refill
Bilateral Upper Extremity:
Cristiane Time: Less than 3 sec
Bilateral Lower Extremity:
Cristiane Time: Less than 3 sec
Pulse Evaluation
Bilateral Radial:
Pulse Evaluation: Present
Bilateral Dorsalis Pedis:
Pulse Evaluation: Present
--- NOTE | 2023-09-18 20:11 | PTCARENOTE ---
Pt Aox3, ROSEBUD, VSS, Afib controlled on monitor. + edema to B/L LE. 2L NC sats >95%. SBP improved wit previos dose of midodrine. Abdomen is obese and soft, tender to the LLQ complains of intermittent pain especially with movement, pt claims he hashas
this pain before and it usually resolves on its own. Currently receiving Dialysis, and pt is Oliguric. Wound culture sent from right neck site. HD cath remains in place, plan for IR in the morning for cath removal and line holiday,
[2023-09-18 20:46] LABS: Hepatitis B Surface Antibody Indeterminate
[2023-09-18] MEDS: ELIQUIS 5 MG PO (20:54)
[2023-09-18] MEDS: MYLICON 80 MG PO (20:54)
[2023-09-18] MEDS: STERILE WATER FOR INJECTION 10 ML IV (22:09)
[2023-09-18] MEDS: MAXIPIME 1000 MG IV (22:10)
[2023-09-19] VITALS (15 sets, daily range): BP systolic 94–141; BP diastolic 49–78; BMI 41.0
[2023-09-19 05:18] LABS: Hematocrit 30.1 % (39.0-52.0); Hemoglobin 9.7 g/dL (13.0-18.0); Mean Corp Hgb Conc. 32.2 g/dL (33.0-37.0); Mean Corpuscular Hgb 29.3 pg (27.0-31.0); Mean Corpuscular Volume 90.9 fL (80.0-94.0); Mean Platelet Volume 9.8 fL (7.4-10.4); Platelet Count 116 10^3/uL (130-400); Red Blood Cell Count 3.31 10^6/uL (4.70-6.10); Red Cell Dist. Width 15.3 % (11.5-14.5); White Blood Cell Count 7.5 10^3/uL (4.8-10.8)
[2023-09-19 05:38] LABS: Vancomycin Random 9.7 ug/ml
[2023-09-19 05:44] LABS: Troponin I 0.075 ng/ml
[2023-09-19 05:46] LABS: Blood Urea Nitrogen 25 mg/dl (9-20); Calcium 8.3 mg/dl (8.4-10.2); Carbon Dioxide 27 mmol/L (22-30); Chloride 98 mmol/L (98-107); Estimated Creatinine Clearance 31 ml/min; Glucose 111 mg/dl (70-99); Potassium 4.3 mmol/L (3.5-5.1); Sodium 132 mmol/L (135-145); eGFR 21.67
--- NOTE | 2023-09-19 06:22 | PTCARENOTE ---
Pt more alert than earlier, able to answer all orientation questions, VSS, Afib on monitor, Attempts to place 2nd IV unsuccessful. Pt NPO since midnight for cath removal today. Bath and blood work completed.
--- NOTE | 2023-09-19 06:27 | PTCARENOTE ---
Blood cultures gram positive cocci in clusters
[2023-09-19] MEDS: SYNTHROID 50 MCG PO (07:09)
--- NOTE | 2023-09-19 07:14 | W.PN.ID1 ---
Date of Service
Date of Service: September 19, 2023
Today's Communication
Continue antibiotics. Await HD line removal.
Assessment / Plan
Fevers
Suspected CLABSI (HD catheter; POA)
Positive blood cultures (GPC clusters)
Leukocytosis
Anemia
Hyponatremia
ESRD�HD
Paroxysmal A-fib
CHF
Peripheral neuropathy
HTN
DENISSE
Gout
Morbid obesity
Recommendations:
Wound culture with gram-positive cocci; discontinue further cefepime.
Continue with vancomycin
For HD removal today.
- culture tip. Will check blood cultures following removal
Follow pending blood cultures and wound culture.
Trend white count and temperature curve.
Chief Complaint
-: Bacteremia and Other (HD line infection)
Subjective / Review of Systems
Review of Systems: No Fever and No Chills
Vital Signs / Physical Exam
Vital Signs
Vital Signs
Temp Pulse Resp BP Pulse Ox
97.2 F 68 20 116/60 100
09/19/23 03:30 09/19/23 05:15 09/19/23 05:15 09/19/23 03:00 09/19/23 05:15
Physical Exam
Constitutional: No Acute Distress, Comfortable and Non-toxic
Eyes: Sclera Anicteric
Cardiovascular: S1/S2; Negative S3/S4
Pulmonary: Clear; Negative Wheezes, Rales or Rhonchi
Gastrointestinal: Soft, Non Tender and Non Distended
Skin: Warm and Dry; Negative Rash or Jaundice
Lines: HD Cath (Right IJ. Purulence noted at proximal entry site.)
Objective Data
Lab Data
Lab Results
09/19/23 05:06
09/19/23 05:06
PT 28.9 Sec (11.4-14.6) H 09/18/23 17:27
INR 2.68 09/18/23 17:27
APTT 47.9 Sec (23.4-35.0) H 09/18/23 17:27
Estimated Creat Clear 31 ml/min 09/19/23 05:06
Lactic Acid 1.7 mmol/L (0.7-2.0) 09/18/23 15:46
Total Bilirubin 1.1 mg/dl (0.2-1.3) 09/18/23 10:37
AST 29 U/L (17-59) 09/18/23 10:37
ALT 17 U/L (0-50) 09/18/23 10:37
Alkaline Phosphatase 82 U/L (38-126) 09/18/23 10:37
Most recent labs reviewed.
Micro Results:
09/18/23 10:37 Blood Culture - Preliminary
Blood/Venous Positive culture in progress
Gram Stain - Preliminary
09/18/23 18:27 Wound Culture - Pending
Neck Gram Stain - Preliminary
09/18/23 17:27 MRSA Screen - Pending
Nose
09/18/23 11:08 Influenza Types A & B (HANNAH) - Final
Nasal Swab Negative for Influenza A & B, NAAT
Negative results must be combined with clinical observations
and patient history.
Nucleic Acid Amplification test (NAAT)performed on the
[employer] platform.
09/18/23 11:08 Urine Culture - Pending
Urine
Care Review
Total Time Spent with Patient (in minutes): Hospitalist
--- NOTE | 2023-09-19 07:39 | W.PN.HOSP.TC ---
Today's Communication/Plan
-
Remove dialysis catheter
Stop cefepime
Continue Lasix, vancomycin
Can transfer out of ICU later today if he remains stable
Assessment / Plan
Assessment / Plan
Gen-AAOx3, NAD, obese
HEENT-NC, AT, anicteric, clear oral mm
Neck-supple
CV-reg, no M, +S1/S2
Lungs-clear B/L
Abd-soft, NT, ND
Ext-no edema
Musculoskeletal-no cyanosis, clubbing
Skin-warm and dry
Neuro-grossly non-focal
Psych-calm, cooperative
Septic shock -possibly due to infected dialysis catheter.� Blood culture showed gram-positive cocci in clusters. Continue vancomycin. Wound culture from HD catheter exit site with gram-positive cocci. Can discontinue cefepime. Infectious disease
following. Recheck blood cultures. Hemodynamically stable. Has not required vasopressors. Anticipate transfer out of ICU later today if he remains stable.
Troponin elevation -likely non-VT troponin elevation in the setting of sepsis, ESRD.� No chest pain.� Troponins were also elevated during his recent hospitalization. Troponins have peaked.
ESRD -on dialysis Thursday.� Nephrology following. They recommend continuing Lasix.
Hyponatremia -sodium 132, improving.�
Paroxysmal atrial fibrillation -continue amiodarone, Eliquis.
Hypothyroidism -continue Synthroid.
Chronic heart failure preserved EF - stable.
Chronic peripheral neuropathy
Chronic normocytic anemia -hemoglobin stable.
DENISSE
Morbid obesity due to excess calories
Full code
PT/OT
Anticipated Discharge: > 48 hours
Subjective/Interval History
-
Date of Service: September 19, 2023
Patient seen and examined. Feels much better. No complaints.
Objective Data
-
Labs:
Laboratory Results
09/19/23
05:06
WBC 7.5
Hgb 9.7 L
Hct 30.1 L
Plt Count 116 L D
Sodium 132 L
Potassium 4.3
Chloride 98
Carbon Dioxide 27
BUN 25 H
Creatinine 3.0 H
Glucose 111 H
Calcium 8.3 L
Vital Signs:
Vital Signs
Temp Pulse Resp BP Pulse Ox
97.2 F 68 20 116/60 100
09/19/23 03:30 09/19/23 05:15 09/19/23 05:15 09/19/23 03:00 09/19/23 05:15
I&O
09/18/23 09/19/23 09/20/23
06:59 06:59 06:59
Intake Total 300 / 300 240 / 240
Balance 300 / 300 240 / 240
Review of Systems
-
History Source: Patient
All other systems: Reviewed and negative
[2023-09-19] MEDS: ELIQUIS 5 MG PO ×2 (08:00→20:15)
[2023-09-19] MEDS: PACERONE 200 MG PO (08:00)
[2023-09-19] MEDS: ProAmatine 5 MG PO (08:00)
--- NOTE | 2023-09-19 08:28 | W.PN.INTV ---
Today's Communication / Plan
Recommendations
IV vanco; ID on board
Check TTE
Encourage incentive spirometer
Stable for downgrade out of ICU to telemetry. Cuprous Chloride Helper/pulmonary service will sign off. Please reconsult if there are any additional questions/concerns, or if respiratory issues develop.
Assessment
-
Assessment: 68-year-old morbidly obese male former tobacco smoker with a past medical history of recent YOHANNES on CKD nondependent on HD MWF, HFpEF, hypertension now with relative hypotension, paroxysmal A-fib s/p ablation at [facility] on Eliquis,
hypothyroidism, and DENISSE who presents with fevers and chills from [facility]. There was concern for a right-sided permacath infection as part of the catheter was visible with discharge seen. He was BIBEMS and found to be hypotensive.
IV fluids given, antibiotic started and he was transferred to ICU where he underwent HD due to concern for septic shock with further worsening blood pressure during dialysis. Cuprous Chloride Helper service is consulted for additional
management/recommendations.
Chronic conditions LINE ASSIGNER: YOHANNES on CKD now dependent on HD MWF, A-fib, chronic HFpEF, hypertension, DENISSE, gout, obesity, hypothyroidism, chronic peripheral neuropathy, chronic normocytic anemia,
Impression:
#Septic shock due to suspected perma-cath infection - (shock state resolved) - perma-cath site is growing S aureus
#Staph aureus bacteremia due to above
#Lactic acidosis due to above -resolved
#Positive urinalysis likely due to asymptomatic bacteriuria
#Elevated troponin - likely type II HI in setting of shock - troponin peaked at 0.092 on 09/18/2023
#YOHANNES on CKD now dependent on HD MWF
#Paroxysmal A-fib on Eliquis
#Morbid obesity
#Former tobacco use
Plan:
- R-sided Permacath removed today from IR - follow up cath tip culture
- Continue IV vancomycin
- Check TTE to assure no endocarditis present
- Keep HR <110; replete K>4, Mg>2
- Follow up check blood Cx sensitivities (growing S aureus from 09/18/2023)
- Nephrology consulted
- Ideally give him few days of a line holiday, and then replace HD catheter on Thu- with a Kranthi until infection clears, and then he can get perma-cath as his discharge date approaches
- Maintain SpO2 >90-94% with supplemental O2 as needed
- Maintain euglycemia with goal BG 140�180
- DVT prophylaxis
Patient has done remarkably well over the last 12-24 hours. He is not requiring vasopressors and MAP is >65 and he is in no acute distress, mentating and feeling well
Dispo: Stable for downgrade out of ICU to telemetry. Cuprous Chloride Helper/pulmonary service will sign off. Thank you for allowing us to be involved in the care of this patient. Please reconsult if there are any additional questions/concerns, or if
respiratory issues develop.
Data:
CXR 09-18-2023:
Low lung volumes.
Cardiomegaly with slightly prominent pulmonary vascularity, possibly representing mild CHF versus acute pulmonary edema.
Subjective Dataa
Subjective Data
Date of Service:
Date of Service: September 19, 2023
Chief Complaint: Cuprous Chloride Helper Follow Up
Subjective:
Patient seen and evaluated today. He is sitting in the chair says he feels well. BP 141/78, heart rate 87. He is on room air. Saturating 94%. I told him that his urine culture is growing E. coli. When asked if he has any lower abdominal pain,
fevers, chills he says no. He denies any urinary frequency unless he 'drinks a lot.' He says that he only has burning when he pees when he has not 'peed in a while.' He says this burning sensation has been happening for many years. He currently
denies headache, chest pain, shortness of breath.
Right-sided permacath removed today.
Review of Systems
General: Other (12 point ROS performed and is negative unless mentioned above.)
Objective Data
Data Reviewed
Vital Signs / I&O / Oxygen:
Vital Signs
Temp Pulse Resp BP Pulse Ox
98.0 F 81 18 121/54 97
09/19/23 11:25 09/19/23 11:39 09/19/23 09:45 09/19/23 11:39 09/19/23 09:45
Intake and Output
09/18/23 09/19/23 09/20/23
06:59 06:59 06:59
Intake Total 300 / 300 480 / 480
Balance 300 / 300 480 / 480
SaO2 97
Nasal Cannula flow liters per 2
minute
Physical Exam
General: Comfortable
HEENT: Normocephalic and Anicteric
Cardiovascular: S1-S2, Irregular Rhythm, Peripheral Edema (Negative) and Other (normal rate)
Respiratory: Wheeze (n), Crackles (Bibasilar), Rhonchi (n) and Non-Labored Respirations
GI: Soft, Non Distended and Non Tender
Neurology: Awake and Alert
Skin: Warm and Dry
Labs/Micro/Reports
Lab Data
09/19/23 05:06
09/19/23 05:06
Laboratory Results
09/18/23
17:27
PT 28.9 H
INR 2.68
APTT 47.9 H
Microbiology
09/18/23 10:37 Blood/Venous Blood Culture - Preliminary
Staphylococcus aureus
09/18/23 10:37 Blood/Venous Gram Stain - Preliminary
09/18/23 18:27 Neck Wound Culture - Preliminary
Staphylococcus aureus
09/18/23 18:27 Neck Gram Stain - Preliminary
09/18/23 11:08 Urine Urine Culture - Preliminary
Escherichia coli
09/18/23 11:08 Nasal Swab Influenza Types A & B (HANNAH) - Final
Negative for Influenza A & B, NAAT
Negative results must be combined with clinical observations
and patient history.
Nucleic Acid Amplification test (NAAT)performed on the
[employer] platform.
--- NOTE | 2023-09-19 08:30 | PTCARENOTE ---
recd pt handoff at bedside, assessed as noted. Seen by Dr. King, aware of plans for the day. Ordered and eating breakfast. Awaiting IR for line removal. BP noted, midodrine per orders, see VS.
[2023-09-19] MEDS: VANCOCIN 200 IV (09:15)
--- NOTE | 2023-09-19 10:42 | VATNOTE ---
Paged to see pt by CHARLY Dickerson due to apparent IV infiltration of vancomycin. Dr. King contacted via tiger text for order for hyaluronidase at this time.
--- NOTE | 2023-09-19 10:45 | VATNOTE ---
Pt arm elevated and heat applied by PCN at this time per policy.
--- NOTE | 2023-09-19 10:45 | PTCARENOTE ---
IV site RFA found swollen (vanco infusing). infusion held, IV team here. Ice pack to swollen site.
[2023-09-19] MEDS: LASIX 80 MG PO (11:39)
[2023-09-19] MEDS: NICORETTE 4 MG PO ×2 (11:39→20:15)
[2023-09-19] MEDS: HYLENEX 30 UNITS SC ×10 (11:43→11:47)
--- NOTE | 2023-09-19 12:01 | VATNOTE ---
Injections complete at this time. More heat applied, arm still elevated.
--- NOTE | 2023-09-19 12:32 | W.PN.NEPH.PH ---
Today's Communication / Plan
-
cont supportive care
Assessment/Plan
-
IMP:
Septic shock -suspected infected dialysis catheter vs UTI
Troponin elevation -likely non-CA
Recent YOHANNES with CKD 3B vs 4, HD dependent since 08/18/23-[facility] at [facility]
Heart failure with preserved EF
Hypertension with relative hypotension
History of gastric bypass
Back pain
Hyponatremia
Paroxysmal atrial fibrillation recent ablation at [facility]
Hypothyroidism
Chronic peripheral neuropathy
Chronic normocytic anemia
DENISSE
Morbid obesity due to excess calories
Plan:
A/w fever,suspected infected HD catheter site and sepsis however has UTI too
plan to d/c HD cathteter today and send tip for culture
abx per ID
BP better today
cont lasix
line holiday for now, likely HD Thursday or thursday
-
-
Date of Service: September 19, 2023
CC / HPI / ROS
-
Chief Complaint:
YOHANNES with CKD-HD dependant
History of Present Illness:
tolerated HD on 09/18
BP improving, no fever
not on O2
Review of Systems:
no cp or sob
feels well
Labs
-
Labs:
WBC 7.5 10^3/uL (4.8-10.8) 09/19/23 05:06
RBC 3.31 10^6/uL (4.70-6.10) L 09/19/23 05:06
Hgb 9.7 g/dL (13.0-18.0) L 09/19/23 05:06
Hct 30.1 % (39.0-52.0) L 09/19/23 05:06
Plt Count 116 10^3/uL (130-400) L D 09/19/23 05:06
Sodium 132 mmol/L (135-145) L 09/19/23 05:06
Potassium 4.3 mmol/L (3.5-5.1) 09/19/23 05:06
Chloride 98 mmol/L (98-107) 09/19/23 05:06
Carbon Dioxide 27 mmol/L (22-30) 09/19/23 05:06
BUN 25 mg/dl (9-20) H 09/19/23 05:06
Creatinine 3.0 mg/dL (0.7-1.3) H 09/19/23 05:06
eGFR 21.67 09/19/23 05:06
Glucose 111 mg/dl (70-99) H 09/19/23 05:06
Calcium 8.3 mg/dl (8.4-10.2) L 09/19/23 05:06
Ady-N-Lppybydyrzv Pept > 19584 pg/ml 09/18/23 10:37
Albumin 3.5 g/dl (3.5-5.0) 09/18/23 10:37
Physical Exam
-
Vital Signs:
Vital Signs
Temp Pulse Resp BP Pulse Ox
98.0 F 81 18 121/54 97
09/19/23 11:25 09/19/23 11:39 09/19/23 09:45 09/19/23 11:39 09/19/23 09:45
Cardiovascular:: Regular rate and rhythm
Respiratory:: Bilateral: CTA
Lung Excursion:: Normal
Abdomen:: Nontender and Soft
Extremity Edema:: None: Bilateral:
Martins Catheter: No
--- NOTE | 2023-09-19 13:34 | PTCARENOTE ---
oob in recliner chair, gait steady. call yoo in reach.
--- NOTE | 2023-09-19 18:31 | PTCARENOTE ---
I/O collected. ambulated to bathroom for BM. Phlebotomy here to obtain blood culture. back to chair, 'I think I might sleep in the chair.'
--- NOTE | 2023-09-19 21:00 | PTCARENOTE ---
Patient received OOB to recliner chair and watching television. Pt's AAOx4 and able to make his needs known. Plan of care for the shift reviewed with the patient. Afib on the monitor with HR 80. Fluid restriction reviewed with the patient. Clear
breath sounds. SpO2 at 96% on room air. Pt's independent in the room but encouraged to call for assistance when ambulating. Walker at the chair side. Full linen change completed. Scheduled medication and Nicorette gum administered. Call yoo is
within reach.
[2023-09-20] VITALS (12 sets, daily range): BP systolic 81–134; BP diastolic 45–82; PULSE 90–93; BMI 41.2
--- NOTE | 2023-09-20 00:27 | PTCARENOTE ---
Patient reassessed. Awake and remains in recliner chair. Encouraged the patient to get some sleep but he states that the bed is uncomfortable. Pt encouraged to brush his teeth but he continues to decline at this time. Pt states that he will 'get to
it.' No other needs at this time. Call yoo remains within reach.
[2023-09-20 04:02] LABS: Hematocrit 30.8 % (39.0-52.0); Mean Corp Hgb Conc. 32.5 g/dL (33.0-37.0); Mean Corpuscular Hgb 29.8 pg (27.0-31.0); Mean Corpuscular Volume 91.7 fL (80.0-94.0); Mean Platelet Volume 10.1 fL (7.4-10.4); Platelet Count 129 10^3/uL (130-400); Red Blood Cell Count 3.36 10^6/uL (4.70-6.10); Red Cell Dist. Width 15.1 % (11.5-14.5); White Blood Cell Count 6.4 10^3/uL (4.8-10.8)
[2023-09-20 04:27] LABS: Blood Urea Nitrogen 46 mg/dl (9-20); Calcium 8.7 mg/dl (8.4-10.2); Carbon Dioxide 26 mmol/L (22-30); Chloride 95 mmol/L (98-107); Estimated Creatinine Clearance 22 ml/min; Glucose 125 mg/dl (70-99); Potassium 3.4 mmol/L (3.5-5.1); Sodium 134 mmol/L (135-145); eGFR 14.47
--- NOTE | 2023-09-20 04:30 | PTCARENOTE ---
[id number]: Patient reassessed. Assessment unchanged from the previous. Patient cleansed with CHG wipes. Labs drawn and sent. Pt assisted with transfer from recliner chair to bed. All needs are met at this time. Bed in the lowest position. Call yoo
is within reach.
[2023-09-20 05:10] LABS: Vancomycin Random 17.9 ug/ml
[2023-09-20] MEDS: KCL 40 MEQ PO (05:53)
[2023-09-20] MEDS: SYNTHROID 50 MCG PO (06:01)
--- NOTE | 2023-09-20 07:40 | W.PN.HOSP.TC ---
Today's Communication/Plan
-
MRI
Potassium
Check magnesium
Assessment / Plan
Assessment / Plan
Gen-AAOx3, NAD, obese
HEENT-NC, AT, anicteric, clear oral mm
Neck-supple
CV-reg, no M, +S1/S2
Lungs-clear B/L
Abd-soft, NT, ND
Ext-no edema
Musculoskeletal-no cyanosis, clubbing
Skin-warm and dry
Neuro-grossly non-focal
Psych-calm, cooperative
Septic shock -possibly due to infected dialysis catheter.� Blood culture positive for Staph aureus. Repeat culture pending. Continue vancomycin.
Lumbar pain -subacute. Check MRI, rule out epidural abscess.
Troponin elevation -likely non-[place] troponin elevation in the setting of sepsis, ESRD.� No chest pain.� Troponins were also elevated during his recent hospitalization. Troponins have peaked.
ESRD -on dialysis Thursday.� Nephrology following. They recommend continuing Lasix.
Hyponatremia -sodium 134, improving.�
Hypokalemia -getting repleted. Check magnesium.
Paroxysmal atrial fibrillation -continue amiodarone, Eliquis.
Hypothyroidism -continue Synthroid.
Chronic heart failure preserved EF - stable.
Chronic peripheral neuropathy
Chronic normocytic anemia -hemoglobin stable.
DENISSE
Morbid obesity due to excess calories
Full code
PT/OT
Anticipated Discharge: > 48 hours
Subjective/Interval History
-
Date of Service: September 20, 2023
Patient seen and examined. Feeling much better today. Complaining of lower lumbar back pain.
Objective Data
-
Labs:
Laboratory Results
09/20/23
03:46
WBC 6.4
Hgb 10.0 L
Hct 30.8 L
Plt Count 129 L
Sodium 134 L
Potassium 3.4 L
Chloride 95 L
Carbon Dioxide 26
BUN 46 H
Creatinine 4.2 H*
Glucose 125 H
Calcium 8.7
Vital Signs:
Vital Signs
Temp Pulse Resp BP Pulse Ox
98.1 F 86 24 127/82 96
09/20/23 03:45 09/20/23 07:00 09/20/23 07:00 09/20/23 04:38 09/19/23 20:00
I&O
09/19/23 09/20/23 09/21/23
06:59 06:59 06:59
Intake Total 300 / 300 920 / 920
Balance 300 / 300 920 / 920
Review of Systems
-
History Source: Patient
All other systems: Reviewed and negative
--- NOTE | 2023-09-20 07:52 | PHA.VAN.FU ---
Vancomycin Assessment / Plan
- Assessment
Renal Function: SCR Increasing (3-->4.2)
Hemodialysis Schedule: MWF
WBC's are: WNL
In the past 24 hrs, patient has been: Afebrile
- Assessment - Therapeutic Drug Monitoring
Random Level: 17.9
- Dosing Plan
Dosing by Level: Hold off on dosing today
- Monitoring Plan
Random Level: 09/21 IN AM
- Follow Up
Pharmacy will continue to follow.
Vancomycin Follow UP
- -
Patient Age: 68
Patient Sex: Male
Vancomycin Day #: 2
Indication: Bacteremia
Requesting Provider: LIZETT
Pertinent Antimicrobial Allergies:
Allergies
vancomycin Allergy (Verified 09/17/23 17:03)
Rash
Verified with patient - appears to be infusion rxn 09/18/23
Height / Weight:
Height 5 ft 10 in
Actual Weight 130.2 kg
- Vital Signs / Lab Results
Temp Pulse Resp BP Pulse Ox
99.0 F 86 24 127/82 96
09/20/23 07:49 09/20/23 07:00 09/20/23 07:00 09/20/23 04:38 09/19/23 20:00
Lab Results - Hematology
09/18/23 09/19/23 09/20/23
10:37 05:06 03:46
WBC 15.9 H 7.5 6.4
Lab Results - Chemistry
09/18/23 09/19/23 09/20/23
10:37 05:06 03:46
BUN 43 H 25 H 46 H
Creatinine 5.0 H* 3.0 H 4.2 H*
Estimated Creat Clear 19 31 22
Albumin 3.5
09/18/23 09/18/23
10:37 15:46
Lactic Acid 3.3 H 1.7
Lab Results - Urine
09/18/23
11:08
Urine Nitrite (Reflex) Negative
Leukocyte Esterase Rfl 2+ A
Ur Squamous Epith Cells 6-10
Microbiology Results
09/18/23 10:37 Blood Culture - Preliminary
Blood/Venous Staphylococcus aureus
Gram Stain - Preliminary
09/18/23 18:27 Wound Culture - Preliminary
Neck Staphylococcus aureus
Gram Stain - Preliminary
09/18/23 11:08 Urine Culture - Preliminary
Urine Escherichia coli
09/18/23 11:08 Influenza Types A & B (HANNAH) - Final
Nasal Swab Negative for Influenza A & B, NAAT
Negative results must be combined with clinical observations
and patient history.
Nucleic Acid Amplification test (NAAT)performed on the
[employer] platform.
Therapeutic Drug Monitoring
Random Vancomycin 17.9 ug/ml 09/20/23 04:20
[2023-09-20] MEDS: PACERONE 200 MG PO (08:02)
[2023-09-20] MEDS: ELIQUIS 5 MG PO ×2 (08:02→19:31)
[2023-09-20] MEDS: LASIX 80 MG PO (08:02)
[2023-09-20 08:23] LABS: Magnesium 2.4 mg/dl (1.6-2.3)
--- NOTE | 2023-09-20 08:29 | W.PN.ID1 ---
Date of Service
Date of Service: September 20, 2023
Today's Communication
Continue antibiotics. Check MRI.
Assessment / Plan
Fevers
CLABSI (2* HD catheter; POA)
Positive blood cultures (Staph aureus)
Leukocytosis
- Improved
Anemia
Hyponatremia
ESRD�HD
Paroxysmal A-fib
CHF
Peripheral neuropathy
HTN
DENISSE
Gout
Morbid obesity
Recommendations:
Continue with vancomycin pending full susceptibility data. If staph isolate is susceptible to oxacillin, will transition to cefazolin.
Recheck blood cultures to assess clearance.
Given low back pain, patient will need MRI imaging of lumbar region to rule out epidural abscess. At present no clinical evidence of lower extremity weakness.
Trend white count and temperature curve.
Chief Complaint
-: Bacteremia and Other (HD line infection)
Subjective / Review of Systems
Patient seen and examined. HD line removed yesterday. Patient notes some low back pain. Reports that it started approximately 4 to 5 days ago, and attributes it to some stretching exercises that he performed while in rehab. Denies fevers or
chills. No other complaints at present. Denies dysuria.
Vital Signs / Physical Exam
Vital Signs
Vital Signs
Temp Pulse Resp BP Pulse Ox
99.0 F 96 24 103/59 96
09/20/23 07:49 09/20/23 08:02 09/20/23 07:00 09/20/23 08:02 09/19/23 20:00
Physical Exam
Constitutional: No Acute Distress, Comfortable and Non-toxic
Eyes: No Conjunctival Hemorrhage and Sclera Anicteric
Cardiovascular: S1/S2; Negative S3/S4 or Murmur
Pulmonary: Non Labored
Gastrointestinal: Soft and Non Distended
Musculoskeletal: Negative Spinal Tenderness
Skin: Negative Rash or Jaundice
Neurological: Awake, Alert and Oriented
Psychological: Calm
Objective Data
Lab Data
Lab Results
09/20/23 03:46
09/20/23 03:46
PT 28.9 Sec (11.4-14.6) H 09/18/23 17:27
INR 2.68 09/18/23 17:27
APTT 47.9 Sec (23.4-35.0) H 09/18/23 17:27
Estimated Creat Clear 22 ml/min 09/20/23 03:46
Lactic Acid 1.7 mmol/L (0.7-2.0) 09/18/23 15:46
Total Bilirubin 1.1 mg/dl (0.2-1.3) 09/18/23 10:37
AST 29 U/L (17-59) 09/18/23 10:37
ALT 17 U/L (0-50) 09/18/23 10:37
Alkaline Phosphatase 82 U/L (38-126) 09/18/23 10:37
Most recent labs reviewed.
Micro Results:
09/18/23 10:37 Blood Culture - Preliminary
Blood/Venous Staphylococcus aureus
Gram Stain - Preliminary
09/18/23 18:27 Wound Culture - Preliminary
Neck Staphylococcus aureus
Gram Stain - Preliminary
09/18/23 11:08 Urine Culture - Preliminary
Urine Escherichia coli
09/19/23 18:29 Blood Culture - Pending
Blood/Venous
09/19/23 12:08 Catheter Tip Culture - Pending
Dialysis Line
09/18/23 17:27 MRSA Screen - Pending
Nose
09/18/23 11:08 Influenza Types A & B (HANNAH) - Final
Nasal Swab Negative for Influenza A & B, NAAT
Negative results must be combined with clinical observations
and patient history.
Nucleic Acid Amplification test (NAAT)performed on the
[employer] platform.
Care Review
Plan reviewed with: Physician (Hospitalist)
[2023-09-20] MEDS: ProAmatine 5 MG PO ×2 (10:37→15:51)
[2023-09-20] MEDS: TYLENOL 650 MG PO ×2 (10:44→17:32)
[2023-09-20] MEDS: NICORETTE 4 MG PO ×2 (10:46→13:45)
--- NOTE | 2023-09-20 10:57 | PTCARENOTE ---
pt alert and oriented, pleasant , tolerating diet , pt oob in chair for breakfast , pt co lower back pain , scheduled for MRI tomorrow , Tylenol given for pain , pt BP 89/56 , medicated with midodrine as ordered, afib on monitor
--- NOTE | 2023-09-20 11:45 | W.PN.NEPH.PH ---
Today's Communication / Plan
-
line holiday
HD catheter when ok with ID
Assessment/Plan
-
IMP:
Septic shock -suspected infected dialysis catheter
Troponin elevation -likely non-[place]
Recent YOHANNES with CKD 3B vs 4, HD dependent since 08/18/23-[facility] at [facility]
Heart failure with preserved EF
Hypertension with relative hypotension
History of gastric bypass
Back pain
Hyponatremia
Paroxysmal atrial fibrillation recent ablation at [facility]
Hypothyroidism
Chronic peripheral neuropathy
Chronic normocytic anemia
DENISSE
Morbid obesity due to excess calories
?UTI
Plan:
A/w fever,suspected infected HD catheter now removed
abx per ID, for MRI back
will place catheter likely Thursday if ok with ID,
BP soft, cotn midodrine prn
cont lasix
-
-
Date of Service: September 20, 2023
CC / HPI / ROS
-
Chief Complaint:
YOHANNES with CKD-HD dependant
History of Present Illness:
tolerated HD on 09/18
BP marginal prior h/o orthostatic, no fever
not on O2
Review of Systems:
no cp or sob
feels well
had back pain
Labs
-
Labs:
WBC 6.4 10^3/uL (4.8-10.8) 09/20/23 03:46
RBC 3.36 10^6/uL (4.70-6.10) L 09/20/23 03:46
Hgb 10.0 g/dL (13.0-18.0) L 09/20/23 03:46
Hct 30.8 % (39.0-52.0) L 09/20/23 03:46
Plt Count 129 10^3/uL (130-400) L 09/20/23 03:46
Sodium 134 mmol/L (135-145) L 09/20/23 03:46
Potassium 3.4 mmol/L (3.5-5.1) L 09/20/23 03:46
Chloride 95 mmol/L (98-107) L 09/20/23 03:46
Carbon Dioxide 26 mmol/L (22-30) 09/20/23 03:46
BUN 46 mg/dl (9-20) H 09/20/23 03:46
Creatinine 4.2 mg/dL (0.7-1.3) H* 09/20/23 03:46
eGFR 14.47 09/20/23 03:46
Glucose 125 mg/dl (70-99) H 09/20/23 03:46
Calcium 8.7 mg/dl (8.4-10.2) 09/20/23 03:46
Klb-J-Abirvtsufbs Pept > 33797 pg/ml 09/18/23 10:37
Albumin 3.5 g/dl (3.5-5.0) 09/18/23 10:37
Physical Exam
-
Vital Signs:
Vital Signs
Temp Pulse Resp BP Pulse Ox
99.0 F 89 18 89/56 96
09/20/23 07:49 09/20/23 10:37 09/20/23 10:32 09/20/23 10:37 09/19/23 20:00
Cardiovascular:: Regular rate and rhythm
Respiratory:: Bilateral: CTA
Lung Excursion:: Normal
Abdomen:: Nontender and Soft
Extremity Edema:: None: Bilateral:
Martins Catheter: No
--- NOTE | 2023-09-20 16:30 | PTCARENOTE ---
pt blood pressure 97/45 at 1545 , pt med with midodrine , pt now has a BP of 126/62
--- NOTE | 2023-09-20 18:29 | VATNOTE ---
Vancomycin infiltrate to R forearm resolved at this time.
[2023-09-20] MEDS: MELATONIN 5 MG PO (21:09)
--- NOTE | 2023-09-20 21:36 | PTCARENOTE ---
Received pt sitting in chair, AAOX3, pleasant, without complaints. Low back pain improved after tylenol dose. [facility]. Aflutter/fib on tele, HR 70s. BP 134/76. +1 pitting LE edema. Afebrile. On RA. Lungs with minimal scattered rales in RLL but otherwise
CTA. Round, obese abdomen. + BS. Voided yellow urine in urinal. L FA #20 capped. Assisted pt back to bed, melatonin given. Call yoo in reach.
[2023-09-21] VITALS (11 sets, daily range): BP systolic 76–147; BP diastolic 67–72; PULSE 76; O2SAT 98; BMI 41.4
[2023-09-21] MEDS: NICORETTE 4 MG PO ×3 (03:51→20:02)
[2023-09-21] MEDS: TYLENOL 650 MG PO ×3 (04:13→20:02)
[2023-09-21 04:24] LABS: % Basophils 0.8 % (0-2); % Immature Granulocytes 1.2 % (0-0.5); % Lymphocytes 12.8 % (20.5-51.1); % Monocytes 8.4 % (1.7-9.3); % Neutrophils 66.8 % (42.2-75.2); Absolute Eosinophils 0.5 10^3/uL (0-0.7); Absolute Immature Granulocytes 0.1 10^3/uL (0-0.05); Absolute Lymphocytes 0.6 10^3/uL (1.2-3.4); Absolute Monocytes 0.4 10^3/uL (0.1-0.6); Absolute Neutrophils 3.3 10^3/uL (1.4-6.5); Hematocrit 29.3 % (39.0-52.0); Hemoglobin 9.5 g/dL (13.0-18.0); Mean Corp Hgb Conc. 32.4 g/dL (33.0-37.0); Mean Corpuscular Hgb 29.2 pg (27.0-31.0); Mean Corpuscular Volume 90.2 fL (80.0-94.0); Mean Platelet Volume 10.1 fL (7.4-10.4); Nucleated Red Blood Cells % 0 % (-); Platelet Count 131 10^3/uL (130-400); Red Blood Cell Count 3.25 10^6/uL (4.70-6.10); Red Cell Dist. Width 14.9 % (11.5-14.5)
[2023-09-21 04:42] LABS: Vancomycin Random 15.3 ug/ml
[2023-09-21 04:50] LABS: Blood Urea Nitrogen 59 mg/dl (9-20); Calcium 8.4 mg/dl (8.4-10.2); Carbon Dioxide 25 mmol/L (22-30); Chloride 98 mmol/L (98-107); Estimated Creatinine Clearance 21 ml/min; Glucose 102 mg/dl (70-99); Potassium 3.3 mmol/L (3.5-5.1); Sodium 135 mmol/L (135-145); eGFR 13.32
[2023-09-21] MEDS: REFRESH EYE DROPS (PF) 1 DROPS BOTH EYES (05:06)
[2023-09-21] MEDS: SYNTHROID 50 MCG PO (05:06)
[2023-09-21] MEDS: KCL 270 MEQ IV (06:22)
[2023-09-21] MEDS: PACERONE 200 MG PO (07:43)
[2023-09-21] MEDS: ELIQUIS 5 MG PO ×2 (07:44→20:02)
--- NOTE | 2023-09-21 09:02 | W.PN.NEPH.PH ---
Today's Communication / Plan
-
CVC today
Assessment/Plan
-
IMP:
Septic shock -suspected infected dialysis catheter
Troponin elevation -likely non-MD
Recent YOHANNES with CKD 3B vs 4, HD dependent since 08/18/23-MWF at [facility]
Heart failure with preserved EF
Hypertension with relative hypotension
History of gastric bypass
Back pain
Hyponatremia
Paroxysmal atrial fibrillation recent ablation at [facility]
Hypothyroidism
Chronic peripheral neuropathy
Chronic normocytic anemia
DENISSE
Morbid obesity due to excess calories
?UTI
Plan:
-temp HD CVC today, left side
-HD tomorrow
-abx per ID
-no evidence of renal recovery
-
-
Date of Service: September 21, 2023
CC / HPI / ROS
-
Chief Complaint:
YOHANNES with CKD-HD dependant
History of Present Illness:
tolerated HD on 09/18
BP marginal
abx for bacteremia/sepsis
no HD CVC currently
Review of Systems:
no cp or sob
feels well
Labs
-
Labs:
WBC 5.0 10^3/uL (4.8-10.8) 09/21/23 04:00
RBC 3.25 10^6/uL (4.70-6.10) L 09/21/23 04:00
Hgb 9.5 g/dL (13.0-18.0) L 09/21/23 04:00
Hct 29.3 % (39.0-52.0) L 09/21/23 04:00
Plt Count 131 10^3/uL (130-400) 09/21/23 04:00
Sodium 135 mmol/L (135-145) 09/21/23 04:00
Potassium 3.3 mmol/L (3.5-5.1) L 09/21/23 04:00
Chloride 98 mmol/L (98-107) 09/21/23 04:00
Carbon Dioxide 25 mmol/L (22-30) 09/21/23 04:00
BUN 59 mg/dl (9-20) H 09/21/23 04:00
Creatinine 4.5 mg/dL (0.7-1.3) H* 09/21/23 04:00
eGFR 13.32 09/21/23 04:00
Glucose 102 mg/dl (70-99) H 09/21/23 04:00
Calcium 8.4 mg/dl (8.4-10.2) 09/21/23 04:00
Uau-S-Kmqjxkrvcqi Pept > 23948 pg/ml 09/18/23 10:37
Albumin 3.5 g/dl (3.5-5.0) 09/18/23 10:37
Physical Exam
-
Vital Signs:
Vital Signs
Temp Pulse Resp BP Pulse Ox
98.2 F 95 16 143/72 94
09/21/23 07:57 09/21/23 08:00 09/21/23 08:00 09/21/23 07:43 09/21/23 07:41
Cardiovascular:: Regular rate and rhythm
Respiratory:: Bilateral: Coarse
Lung Excursion:: Normal
Abdomen:: Nontender and Soft
Bowel Sounds:: Normal
Extremity Edema:: +2: Bilateral:
--- NOTE | 2023-09-21 09:45 | PTCARENOTE ---
report received, assessments per work list. patient left forearm int infiltrated, removed and restarted right forearm. patient refusing am care, excellent appetite. plan of care, procedures scheduled for today reviewed. Hospitalist updated. ok for
patient to come off telemetry for MRI. sent to MRI with volunteer
--- NOTE | 2023-09-21 11:03 | WOUNDNOTE ---
R NECK/UPPER ANTERIOR CHEST
--- NOTE | 2023-09-21 11:04 | WOUNDNOTE ---
R NECK (base of)(with photo flash)
--- NOTE | 2023-09-21 11:05 | WOUNDNOTE ---
R CHEST (ANTERIOR)(with photo flash)
--- NOTE | 2023-09-21 11:07 | WOUNDNOTE ---
[facility] RN note: Patient admitted with septic shock, suspected infected dialysis catheter, s/p HD cath removal. Patient admitted from SNF. He is .
See H&P for complete history.
PMH: ESRD on HD since 08/18/23, a fib (Eliquis), CHF, neuropathy, HTN, gout, morbid obesity, CKD4, gastric bypass.
Wound Location and type/assessment: Patient admitted with: sacral/coccyx mild MASD, L inner buttocks slightly abraded. Bilateral Le small dry scabbed venous abrasions. +Pedal pulses (R pedal pulse palpable, L pedal pulse easily heard via portable
Doppler). Trace LE edema. Patient stated he used to wear compression stockings but he stopped d/t too hard to apply. R base of neck small pink wound from old HD cath site, small ss drainage with scant murky drainage. R anterior chest pinpoint scab
suspect from old cath insertion site, dressing with old ss drainage. R heel blanchable mild red.
Appetite: good.
Pressure redistribution devices in place: Centrella Max air. Air chair cushion. Patient ambulates with walker and supervision.
Plan: Dressing changed on base of R neck and R anterior chest. [id number] silicone border foam applied to L lateral calf.
Will confirm orders with hospitalist and discussed with ALEXANDER Stafford.
Care plan to be updated. Will follow peripherally as needed.
--- NOTE | 2023-09-21 11:13 | W.PN.ID1 ---
Date of Service
Date of Service: September 21, 2023
Today's Communication
Continue abx.
Assessment / Plan
Fevers
CLABSI (2* HD catheter; POA)
Positive blood cultures (Staph aureus MSSA)
Leukocytosis
- Improved
Anemia
Hyponatremia
ESRD�HD
Paroxysmal A-fib
CHF
Peripheral neuropathy
HTN
DENISSE
Gout
Morbid obesity
Recommendations:
Transition to cefazolin 2 gm IV q24.
Follow blood cultures to assess clearance. If HD needs to be performed, would place temporary catheter until cultures can be confirmed as clear for 72 hours.
Await official MRI report. Personal review suggests possible L1 osteomyelitis.
Trend white count and temperature curve.
Chief Complaint
-: Bacteremia and Other (HD line infection)
Subjective / Review of Systems
Pt see /examined. Reports ongoing low back pain.
Review of Systems: No Fever and No Chills
Vital Signs / Physical Exam
Vital Signs
Vital Signs
Temp Pulse Resp BP Pulse Ox
98.2 F 95 16 143/72 94
09/21/23 07:57 09/21/23 08:00 09/21/23 08:00 09/21/23 07:43 09/21/23 07:45
Physical Exam
Constitutional: No Acute Distress, Comfortable, Non-toxic and Obese
Eyes: No Conjunctival Hemorrhage and Sclera Anicteric
Cardiovascular: S1/S2; Negative S3/S4
Pulmonary: Clear and Non Labored
Gastrointestinal: Soft, Non Tender and Non Distended
Extremities: Negative Splinter Hemorrhage or [place]ay Lesions
Skin: Negative Rash or Jaundice
Neurological: Awake and Alert
Psychological: Calm
Objective Data
Lab Data
Lab Results
09/21/23 04:00
01/29/24 04:00
PT 28.9 Sec (11.4-14.6) H 09/18/23 17:27
INR 2.68 09/18/23 17:27
APTT 47.9 Sec (23.4-35.0) H 09/18/23 17:27
Estimated Creat Clear 21 ml/min 09/21/23 04:00
Lactic Acid 1.7 mmol/L (0.7-2.0) 09/18/23 15:46
Total Bilirubin 1.1 mg/dl (0.2-1.3) 09/18/23 10:37
AST 29 U/L (17-59) 09/18/23 10:37
ALT 17 U/L (0-50) 09/18/23 10:37
Alkaline Phosphatase 82 U/L (38-126) 09/18/23 10:37
Most recent labs reviewed.
Micro Results:
09/19/23 12:08 Catheter Tip Culture - Final
Dialysis Line S aureus-Methicillin Sensitive
09/21/23 04:00 Blood Culture - Pending
Blood/Venous
09/19/23 18:29 Blood Culture - Preliminary
Blood/Venous No Growth in 24 hours- Final report to follow
09/18/23 11:08 Urine Culture - Final
Urine Escherichia coli
09/18/23 18:27 Wound Culture - Final
Neck S aureus-Methicillin Sensitive
Gram Stain - Final
09/18/23 10:37 Blood Culture - Final
Blood/Venous S aureus-Methicillin Sensitive
Gram Stain - Final
09/18/23 17:27 MRSA Screen - Final
Nose No Methicillin Resistant Staphylococcus aureus isolated.
09/18/23 11:08 Influenza Types A & B ([facility]) - Final
Nasal Swab Negative for Influenza A & B, NAAT
Negative results must be combined with clinical observations
and patient history.
Nucleic Acid Amplification test (NAAT)performed on the
[employer] platform.
[2023-09-21] MEDS: ANCEF 10 IV (13:24)
[2023-09-21] MEDS: NEURONTIN 300 MG PO (16:17)
--- NOTE | 2023-09-21 16:19 | W.PN.HOSP.TC ---
Today's Communication/Plan
-
HD tomorrow
Abx per ID
Assessment / Plan
Assessment / Plan
Assessment:
Septic shock - possibly due to infected dialysis catheter which was removed.�Blood culture positive for Staph aureus. Repeat culture pending. Continue Ancef per ID.
Lumbar pain
- MRI showing: SEVERE ASYMMETRIC LEFT-SIDED FACET JOINT ARTHROSIS at L4/L5 with a large amount of surrounding enhancing bone marrow and soft tissue edema. Diagnostic possibilities are (1) severe osteoarthritis or (2) septic arthritis given the
history of fever.
- prn pain control
Troponin elevation - likely non-[place] troponin elevation in the setting of sepsis, ESRD.� No chest pain. Troponin was also elevated during his recent hospitalization. Troponin has peaked.
ESRD - on dialysis Thursday. Nephrology following. They recommend continuing Lasix. s/p temp HD Line placed 09/21.
Hyponatremia - sodium 134, improving.�
Hypokalemia - replete prn
Paroxysmal atrial fibrillation - continue amiodarone, Eliquis.
Hypothyroidism - continue Synthroid.
Chronic heart failure preserved EF - stable.
Chronic peripheral neuropathy
Chronic normocytic anemia - hemoglobin stable.
DENISSE
Morbid obesity due to excess calories
DVT ppx: Eliquis
Code: Full
Anticipated Discharge: > 48 hours
Subjective/Interval History
-
Date of Service: September 21, 2023
s/p temp wire inserting for HD
denies any new complaints
Objective Data
-
Labs:
Laboratory Results
09/21/23
04:00
WBC 5.0
Hgb 9.5 L
Hct 29.3 L
Plt Count 131
Sodium 135
Potassium 3.3 L
Chloride 98
Carbon Dioxide 25
BUN 59 H
Creatinine 4.5 H*
Glucose 102 H
Calcium 8.4
Vital Signs:
Vital Signs
Temp Pulse Resp BP Pulse Ox
98.4 F 75 22 121/68 96
09/21/23 13:08 09/21/23 16:00 09/21/23 12:39 09/21/23 15:09 09/21/23 15:09
I&O
09/20/23 09/21/23 09/22/23
06:59 06:59 06:59
Intake Total 920 / 920 365 / 365 755 / 755
Output Total 1150 / 1150 300 / 300
Balance 920 / 920 -785 / -785 455 / 455
Physical Exam
-
General: No Apparent Distress
HEENT: Normocephalic and Atraumatic
Respiratory: Negative Wheezes
Cardiac: Regular Rhythm and S1/S2
GI: Soft
Genito-urinary: No Costovertebral Tender
Musculoskeletal: No Edema
Neuro: AO x 3
Hematologic / Lymphatic: No Lymphadenopathy
Psych: Calm
Data Reviewed
-
Total Time Spent with Patient (in minutes): 47
Labs: Labs Reviewed by me
[2023-09-21] MEDS: DESENEX/MITRAZOL/ZEASORB 1 APPLIC TOPICAL (20:02)
[2023-09-21] MEDS: MELATONIN 5 MG PO (23:05)
[2023-09-22] VITALS (25 sets, daily range): BP systolic 117–194; BP diastolic 59–107; PULSE 82; BMI 41.6
[2023-09-22 05:28] LABS: Hematocrit 26.2 % (39.0-52.0); Hemoglobin 8.6 g/dL (13.0-18.0); Mean Corp Hgb Conc. 32.8 g/dL (33.0-37.0); Mean Corpuscular Hgb 28.7 pg (27.0-31.0); Mean Corpuscular Volume 87.3 fL (80.0-94.0); Mean Platelet Volume 9.9 fL (7.4-10.4); Platelet Count 127 10^3/uL (130-400); Red Cell Dist. Width 15.1 % (11.5-14.5)
[2023-09-22 06:11] LABS: Blood Urea Nitrogen 67 mg/dl (9-20); Carbon Dioxide 22 mmol/L (22-30); Chloride 101 mmol/L (98-107); Glucose 90 mg/dl (70-99); Potassium 3.7 mmol/L (3.5-5.1); Sodium 135 mmol/L (135-145)
[2023-09-22] MEDS: SYNTHROID 50 MCG PO (06:29)
[2023-09-22] MEDS: NICORETTE 4 MG PO ×2 (06:32→13:37)
[2023-09-22 06:33] LABS: Estimated Creatinine Clearance 20 ml/min; eGFR 12.97
[2023-09-22] MEDS: DESENEX/MITRAZOL/ZEASORB 1 APPLIC TOPICAL ×2 (07:17→20:49)
[2023-09-22] MEDS: HEPARIN INTRACATH (08:20)
[2023-09-22] MEDS: ELIQUIS 5 MG PO ×2 (08:20→20:48)
[2023-09-22] MEDS: ProAmatine 5 MG PO (08:20)
[2023-09-22] MEDS: HEPARIN 500 UNITS IV ×2 (09:20)
[2023-09-22] MEDS: RETACRIT 3000 UNITS IV (09:23)
[2023-09-22] MEDS: PACERONE 200 MG PO (09:35)
[2023-09-22] MEDS: LASIX PO (09:37)
[2023-09-22] MEDS: HEPARIN 2800 UNITS INTRACATH (11:40)
--- NOTE | 2023-09-22 12:17 | W.PN.NEPH.HD ---
Assessment
-
Seen on HD. no complaints. VSS< access ok temp CVC
BCx still +
Progress Note - Hemodialysis
-
Date of Service: September 22, 2023
Duration: 30 minutes and 3 hours
Potassium Bath: 2
Calcium Bath: 2.5
Opti-Dialyzer: 160
Ultrafiltration: Other (2kg)
Blood Flow: 400
Dialysate Flow: 600
Heparin: 500x2
EPO: 3000
--- NOTE | 2023-09-22 13:20 | W.PN.ID1 ---
Date of Service
Date of Service: September 22, 2023
Today's Communication
Continue with cefazolin.
Assessment / Plan
Fevers
CLABSI (2* HD catheter; POA)
Positive blood cultures (Staph aureus MSSA)
Leukocytosis
- Improved
Anemia
Hyponatremia
ESRD�HD
Paroxysmal A-fib
CHF
Peripheral neuropathy
HTN
DENISSE
Gout
Morbid obesity
Recommendations:
Continue cefazolin 2 gm IV q24.
Follow blood cultures to assess clearance. HD catheter placed.
MRI suggestive of L4-L5 facet joint arthrosis. May consider Orthopedics/spine eval to determine if surgery necessary.
Trend white count and temperature curve.
Serial blood cultures over the next several days. If further blood cultures remain positive, would pursue MANOHAR
����������������������������������������������������������
Chief Complaint
-: Bacteremia and Other (HD line infection)
Subjective / Review of Systems
Review of Systems: No Fever and No Chills
Vital Signs / Physical Exam
Vital Signs
Vital Signs
Temp Pulse Resp BP Pulse Ox
97.9 F 85 20 146/87 95
09/22/23 11:21 09/22/23 11:45 09/22/23 04:05 09/22/23 11:45 09/22/23 07:29
Physical Exam
Constitutional: No Acute Distress, Comfortable and Non-toxic
Eyes: No Conjunctival Hemorrhage and Sclera Anicteric
Cardiovascular: S1/S2; Negative S3/S4 or Murmur
Pulmonary: Clear; Negative Wheezes or Rales
Gastrointestinal: Soft and Non Tender
Neurological: Awake, Alert and Oriented
Psychological: Calm
Objective Data
Lab Data
Lab Results
09/22/23 05:10
09/22/23 05:10
PT 28.9 Sec (11.4-14.6) H 09/18/23 17:27
INR 2.68 09/18/23 17:27
APTT 47.9 Sec (23.4-35.0) H 09/18/23 17:27
Estimated Creat Clear 20 ml/min 09/22/23 05:10
Lactic Acid 1.7 mmol/L (0.7-2.0) 09/18/23 15:46
Total Bilirubin 1.1 mg/dl (0.2-1.3) 09/18/23 10:37
AST 29 U/L (17-59) 09/18/23 10:37
ALT 17 U/L (0-50) 09/18/23 10:37
Alkaline Phosphatase 82 U/L (38-126) 09/18/23 10:37
Most recent labs reviewed.
Micro Results:
09/21/23 04:00 Blood Culture - Preliminary
Blood/Venous S aureus-Methicillin Sensitive
Gram Stain - Preliminary
09/19/23 18:29 Blood Culture - Preliminary
Blood/Venous No Growth in 48 hours- Final report to follow
09/19/23 12:08 Catheter Tip Culture - Final
Dialysis Line S aureus-Methicillin Sensitive
09/18/23 11:08 Urine Culture - Final
Urine Escherichia coli
09/18/23 18:27 Wound Culture - Final
Neck S aureus-Methicillin Sensitive
Gram Stain - Final
09/18/23 10:37 Blood Culture - Final
Blood/Venous S aureus-Methicillin Sensitive
Gram Stain - Final
09/18/23 17:27 MRSA Screen - Final
Nose No Methicillin Resistant Staphylococcus aureus isolated.
09/18/23 11:08 Influenza Types A & B ([facility]ANNAH) - Final
Nasal Swab Negative for Influenza A & B, NAAT
Negative results must be combined with clinical observations
and patient history.
Nucleic Acid Amplification test (NAAT)performed on the
[employer] platform.
Imaging:
09/21/2023 MRI lumbar spine without and with contrast: Severe asymmetric left-sided facet joint arthrosis at L4/L5 with a large amount of surrounding enhancing bone marrow and soft tissue edema. Septic arthritis is a possibility. No evidence for
epidural or paraspinal abscess. No MRI evidence for acute infectious discitis.
Care Review
Plan reviewed with: Physician (Hospitalist)
[2023-09-22] MEDS: ANCEF 10 IV (13:37)
--- NOTE | 2023-09-22 14:14 | W.PN.HOSP.TC ---
Today's Communication/Plan
-
spine eval
Abx and follow ID recs/cultures
Assessment / Plan
Assessment / Plan
Assessment:
Septic shock - due to infected dialysis catheter which was removed.�Blood culture positive for Staph aureus. Repeat culture with persistent bacteremia. Continue Ancef per ID.
Lumbar pain
- MRI showing: SEVERE ASYMMETRIC LEFT-SIDED FACET JOINT ARTHROSIS at L4/L5 with a large amount of surrounding enhancing bone marrow and soft tissue edema. Diagnostic possibilities are (1) severe osteoarthritis or (2) septic arthritis given the
history of fever.
- prn pain control
- Spine Ortho consult at ID request.
Troponin elevation - likely non-[place] troponin elevation in the setting of sepsis, ESRD.� No chest pain. Troponin was also elevated during his recent hospitalization. Troponin has peaked.
ESRD - on dialysis Thursday. Nephrology following. They recommend continuing Lasix. s/p temp HD Line placed 09/21. HD schedule per Nephrology
Hyponatremia - sodium 134, improving.�
Hypokalemia - replete prn
Paroxysmal atrial fibrillation - continue amiodarone, Eliquis.
Hypothyroidism - continue Synthroid.
Chronic heart failure preserved EF - stable.
Chronic peripheral neuropathy
Chronic normocytic anemia - hemoglobin stable.
DENISSE
Morbid obesity due to excess calories
DVT ppx: Eliquis
Code: Full
Anticipated Discharge: > 48 hours
Subjective/Interval History
-
Date of Service: September 22, 2023
no complaints presently
Objective Data
-
Labs:
Laboratory Results
09/22/23
05:10
WBC 5.0
Hgb 8.6 L
Hct 26.2 L
Plt Count 127 L
Sodium 135
Potassium 3.7
Chloride 101
Carbon Dioxide 22
BUN 67 H
Creatinine 4.6 H*
Glucose 90
Calcium 8.0 L
Vital Signs:
Vital Signs
Temp Pulse Resp BP Pulse Ox
97.9 F 74 20 148/79 95
09/22/23 11:21 09/22/23 12:00 09/22/23 04:05 09/22/23 12:00 09/22/23 07:29
I&O
09/21/23 09/22/23 09/23/23
06:59 06:59 06:59
Intake Total 365 / 365 875 / 875 480 / 480
Output Total 1150 / 1150 800 / 800 550 / 550
Balance -785 / -785 75 / 75 -70 / -70
Physical Exam
-
General: No Apparent Distress
HEENT: Normocephalic and Atraumatic
Respiratory: Negative Wheezes
Cardiac: Regular Rhythm and S1/S2
GI: Soft
Genito-urinary: No Costovertebral Tender
Musculoskeletal: No Edema
Neuro: AO x 3
Psych: Calm
Data Reviewed
-
Total Time Spent with Patient (in minutes): 42
Labs: Labs Reviewed by me
--- NOTE | 2023-09-22 14:34 | W.PN.UPDATE ---
Update Note
Progress Note Update
Received consult for possible aspiration of left L4/5 facet joint. Reviewed MR, there is facet hypertrophy and associated inflammatory change, but no significant fluid to aspirate. Risks of needle placement likely outweigh any small chance of
benefit.
--- NOTE | 2023-09-22 15:59 | CM ---
CM following re: discharge planning.
Reviewed pt's chart, met with pt. Pt's spouse and her son at bedside.
PT and OT evaluations noted - home PT/OT recommended. Pt and his spouse are aware, expressed their agreement and they preferred [facility]. [facility].
CM will coordinate outpatient HD treatment with [facility]. Pt was accepted by [facility] during last admission and pt never started outpatient HD treatment because pt went to [facility].
D/C plan: home with [facility], outpatient HD treatment at [facility] and family support. Pt's spouse stated she and her son will transport pt home at discharge.
CM will follow with discharge plan updates as hospitalization progresses
--- NOTE | 2023-09-22 18:12 | TRANSFER ---
written report tubed to unit. patient transfer to [address] [place] [address] without issue
[2023-09-22] MEDS: MELATONIN 5 MG PO (20:49)
[2023-09-23 03:33] VITALS: BP 130/69
[2023-09-23 05:32] VITALS: BMI 40.7
[2023-09-23] MEDS: SYNTHROID 50 MCG PO (06:21)
[2023-09-23 07:15] VITALS: BP 135/70
[2023-09-23] MEDS: ELIQUIS 5 MG PO ×2 (08:25→20:07)
[2023-09-23] MEDS: LASIX 80 MG PO (08:25)
[2023-09-23] MEDS: PACERONE 200 MG PO (08:26)
[2023-09-23] MEDS: DESENEX/MITRAZOL/ZEASORB 1 APPLIC TOPICAL ×2 (08:26→20:08)
--- NOTE | 2023-09-23 09:47 | W.PN.NEPH.PH ---
Today's Communication / Plan
-
HD tomorrow
Assessment/Plan
-
IMP:
Septic shock -suspected infected dialysis catheter
Troponin elevation -likely non-[place]
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
Heart failure with preserved EF
Hypertension with relative hypotension
History of gastric bypass
Back pain
Hyponatremia
Paroxysmal atrial fibrillation recent ablation at [facility]
Hypothyroidism
Chronic peripheral neuropathy
Chronic normocytic anemia
DENISSE
Morbid obesity due to excess calories
?UTI
Plan:
tolerated HD with temp catheter on 09/22
abx per ID, follow bld cx for clearance of inf
-HD tomorrow
-no evidence of renal recovery so far
ok to resume gabapentin max dose 300mg/day
-
-
Date of Service: September 23, 2023
CC / HPI / ROS
-
Chief Complaint:
YOHANNES with CKD-HD dependant
History of Present Illness:
BP stable
abx for bacteremia/sepsis
no fever, hb low at 8.6
Review of Systems:
no cp or sob
feels well
wants gabapentin for RLS
Labs
-
Labs:
WBC 5.0 10^3/uL (4.8-10.8) 09/22/23 05:10
RBC 3.00 10^6/uL (4.70-6.10) L 09/22/23 05:10
Hgb 8.6 g/dL (13.0-18.0) L 09/22/23 05:10
Hct 26.2 % (39.0-52.0) L 09/22/23 05:10
Plt Count 127 10^3/uL (130-400) L 09/22/23 05:10
Sodium 135 mmol/L (135-145) 09/22/23 05:10
Potassium 3.7 mmol/L (3.5-5.1) 09/22/23 05:10
Chloride 101 mmol/L (98-107) 09/22/23 05:10
Carbon Dioxide 22 mmol/L (22-30) 09/22/23 05:10
BUN 67 mg/dl (9-20) H 09/22/23 05:10
Creatinine 4.6 mg/dL (0.7-1.3) H* 09/22/23 05:10
eGFR 12.97 09/22/23 05:10
Glucose 90 mg/dl (70-99) 09/22/23 05:10
Calcium 8.0 mg/dl (8.4-10.2) L 09/22/23 05:10
Mtu-J-Ljfrayufhco Pept > 36346 pg/ml 09/18/23 10:37
Albumin 3.5 g/dl (3.5-5.0) 09/18/23 10:37
Physical Exam
-
Vital Signs:
Vital Signs
Temp Pulse Resp BP Pulse Ox
97.8 F 82 16 135/70 96
09/23/23 07:15 09/23/23 08:26 09/23/23 07:15 09/23/23 08:26 09/23/23 09:00
Cardiovascular:: Regular rate and rhythm
Respiratory:: Bilateral: CTA
Lung Excursion:: Normal
Abdomen:: Nontender and Soft
Extremity Edema:: None: Bilateral:
Martins Catheter: No
--- NOTE | 2023-09-23 11:03 | W.PN.HOSP.TC ---
Today's Communication/Plan
-
HD tomorrow via temp line
IV Abx per ID; await culture clearance
Assessment / Plan
Assessment / Plan
Assessment:
Septic shock - due to infected dialysis catheter which was removed.�Blood culture positive for Staph aureus. Repeat culture with persistent bacteremia. Continue Ancef per ID.
Lumbar pain
- MRI showing: SEVERE ASYMMETRIC LEFT-SIDED FACET JOINT ARTHROSIS at L4/L5 with a large amount of surrounding enhancing bone marrow and soft tissue edema. Diagnostic possibilities are (1) severe osteoarthritis or (2) septic arthritis given the
history of fever.
- prn pain control
- d/w Spine team and IR. No appreciable fluid to biopsy/collect. Will monitor clinically and treat with IV abx. Pain is overall improving but if it worsens, will repeat MRI.
Troponin elevation - likely non-[place] troponin elevation in the setting of sepsis, ESRD.� No chest pain. Troponin was also elevated during his recent hospitalization. Troponin has peaked.
ESRD - on dialysis Thursday. Nephrology following. They recommend continuing Lasix. s/p temp HD Line placed 09/21. HD schedule per Nephrology
Hyponatremia - sodium 134, improving.�
Hypokalemia - replete prn
Paroxysmal atrial fibrillation - continue amiodarone, Eliquis.
Hypothyroidism - continue Synthroid.
Chronic heart failure preserved EF - stable.
Chronic peripheral neuropathy
Chronic normocytic anemia - hemoglobin stable.
DENISSE
Morbid obesity due to excess calories
Peripheraly neuropathy
- continue Gabapentin, max dose 300/daily.
DVT ppx: Eliquis
Code: Full
Anticipated Discharge: > 48 hours
Subjective/Interval History
-
Date of Service: September 23, 2023
denies any new complaints
asking for home Lyrica but none on the record
Objective Data
-
Vital Signs:
Vital Signs
Temp Pulse Resp BP Pulse Ox
97.8 F 82 16 135/70 96
09/23/23 07:15 09/23/23 08:26 09/23/23 07:15 09/23/23 08:26 09/23/23 09:42
I&O
09/22/23 09/23/23 09/24/23
06:59 06:59 06:59
Intake Total 875 / 875 1560 / 1560
Output Total 800 / 800 1125 / 1125
Balance 75 / 75 435 / 435
Physical Exam
-
General: No Apparent Distress
HEENT: Normocephalic and Atraumatic
Respiratory: Negative Wheezes
Cardiac: Regular Rhythm and S1/S2
GI: Soft
Musculoskeletal: No Edema
Neuro: AO x 3
Hematologic / Lymphatic: No Lymphadenopathy
Psych: Calm
Data Reviewed
-
Total Time Spent with Patient (in minutes): 45
Labs: Labs Reviewed by me
[2023-09-23] MEDS: NEURONTIN 100 MG PO ×3 (11:37→21:49)
[2023-09-23 11:53] VITALS: BP 128/70
--- NOTE | 2023-09-23 13:16 | CM ---
Met with patient. Reviewed PT evaluation. Confirmed with patient discharge plan of care is HH with [facility]. patient agreed.
--- NOTE | 2023-09-23 13:16 | W.PN.ID1 ---
Date of Service
Date of Service: September 23, 2023
Today's Communication
Continue antibiotics.
Assessment / Plan
Fevers
CLABSI (2* HD catheter; POA)
Positive blood cultures (Staph aureus MSSA)
Leukocytosis
- Improved
Anemia
Hyponatremia
ESRD�HD
Paroxysmal A-fib
CHF
Peripheral neuropathy
HTN
DENISSE
Gout
Morbid obesity
Recommendations:
Continue cefazolin 2 gm IV q24.
Follow blood cultures to assess clearance. Temporary HD catheter placed in left IJ.
MRI suggestive of L4-L5 facet joint arthrosis. Ortho Spine has evaluated; no need for surgery at the present.
Trend white count and temperature curve.
Serial blood cultures over the next several days. If further blood cultures remain positive, would pursue MANOHAR
����������������������������������������������������������
Chief Complaint
-: Bacteremia and Other (HD line infection)
Subjective / Review of Systems
Review of Systems: No Fever and No Chills
Vital Signs / Physical Exam
Vital Signs
Vital Signs
Temp Pulse Resp BP Pulse Ox
97.4 F 76 16 128/70 96
09/23/23 11:53 09/23/23 11:53 09/23/23 11:53 09/23/23 11:53 09/23/23 11:53
Physical Exam
Constitutional: No Acute Distress, Comfortable and Non-toxic
Eyes: No Conjunctival Hemorrhage and Sclera Anicteric
Cardiovascular: S1/S2; Negative S3/S4 or Murmur
Pulmonary: Clear; Negative Wheezes or Rales
Gastrointestinal: Non Tender
Neurological: Awake and Alert
Psychological: Calm
Objective Data
Lab Data
Lab Results
09/22/23 05:10
09/22/23 05:10
PT 28.9 Sec (11.4-14.6) H 09/18/23 17:27
INR 2.68 09/18/23 17:27
APTT 47.9 Sec (23.4-35.0) H 09/18/23 17:27
Estimated Creat Clear 20 ml/min 09/22/23 05:10
Lactic Acid 1.7 mmol/L (0.7-2.0) 09/18/23 15:46
Total Bilirubin 1.1 mg/dl (0.2-1.3) 09/18/23 10:37
AST 29 U/L (17-59) 09/18/23 10:37
ALT 17 U/L (0-50) 09/18/23 10:37
Alkaline Phosphatase 82 U/L (38-126) 09/18/23 10:37
Most recent labs reviewed.
Micro Results:
09/23/23 05:01 Blood Culture - Pending
Blood/Venous
09/19/23 18:29 Blood Culture - Preliminary
Blood/Venous No Growth in 72 hours- Final report to follow
09/22/23 13:35 Blood Culture - Pending
Blood/Venous
09/22/23 13:43 Blood Culture - Pending
Blood/Venous
09/21/23 04:00 Blood Culture - Preliminary
Blood/Venous S aureus-Methicillin Sensitive
Gram Stain - Preliminary
09/19/23 12:08 Catheter Tip Culture - Final
Dialysis Line S aureus-Methicillin Sensitive
09/18/23 11:08 Urine Culture - Final
Urine Escherichia coli
09/18/23 18:27 Wound Culture - Final
Neck S aureus-Methicillin Sensitive
Gram Stain - Final
09/18/23 10:37 Blood Culture - Final
Blood/Venous S aureus-Methicillin Sensitive
Gram Stain - Final
09/18/23 17:27 MRSA Screen - Final
Nose No Methicillin Resistant Staphylococcus aureus isolated.
09/18/23 11:08 Influenza Types A & B ([facility]ANNAH) - Final
Nasal Swab Negative for Influenza A & B, NAAT
Negative results must be combined with clinical observations
and patient history.
Nucleic Acid Amplification test (NAAT)performed on the
[employer] platform.
Imaging:
09/21/2023 ECHO (TTE): EF approximately 65%. Enlarged right ventricular size. Normal right ventricular systolic function. Mild tricuspid regurgitation. No evidence for vegetation.
09/21/2023 MRI lumbar spine without and with contrast: Severe asymmetric left-sided facet joint arthrosis at L4/L5 with a large amount of surrounding enhancing bone marrow and soft tissue edema. Septic arthritis is a possibility. No evidence for
epidural or paraspinal abscess. No MRI evidence for acute infectious discitis.
Care Review
Plan reviewed with: Physician (Hospitalist)
[2023-09-23] MEDS: ANCEF 10 IV (15:01)
[2023-09-23 15:50] VITALS: BP 118/71
--- NOTE | 2023-09-23 16:10 | W.PN.UPDATE ---
Update Note
Progress Note Update
Mri reviewed
There is a source fir the infection
Do not think it is the facet
Would repeat studies in one week to reeval if he does not improve to see if it has gotten worse
[2023-09-23 19:19] VITALS: BP 111/63
[2023-09-23] MEDS: NICORETTE 4 MG PO (20:07)
[2023-09-23] MEDS: MELATONIN 5 MG PO (21:49)
[2023-09-23] MEDS: TYLENOL 650 MG PO (21:52)
[2023-09-23 23:41] VITALS: BP 142/70
[2023-09-24] VITALS (7 sets, daily range): BP systolic 120–149; BP diastolic 56–77; PULSE 84; O2SAT 96; BMI 40.6
[2023-09-24 05:23] LABS: Hematocrit 27.3 % (39.0-52.0); Hemoglobin 8.9 g/dL (13.0-18.0); Mean Corp Hgb Conc. 32.6 g/dL (33.0-37.0); Mean Corpuscular Volume 88.9 fL (80.0-94.0); Mean Platelet Volume 9.4 fL (7.4-10.4); Platelet Count 137 10^3/uL (130-400); Red Blood Cell Count 3.07 10^6/uL (4.70-6.10); Red Cell Dist. Width 14.8 % (11.5-14.5); White Blood Cell Count 6.2 10^3/uL (4.8-10.8)
[2023-09-24] MEDS: SYNTHROID 50 MCG PO (05:38)
[2023-09-24 05:43] LABS: Blood Urea Nitrogen 47 mg/dl (9-20); Calcium 8.4 mg/dl (8.4-10.2); Carbon Dioxide 27 mmol/L (22-30); Chloride 102 mmol/L (98-107); Estimated Creatinine Clearance 26 ml/min; Glucose 106 mg/dl (70-99); Potassium 3.5 mmol/L (3.5-5.1); Sodium 134 mmol/L (135-145); eGFR 17.41
[2023-09-24] MEDS: NICORETTE 4 MG PO ×2 (08:38→18:25)
[2023-09-24] MEDS: LASIX PO (08:52)
[2023-09-24] MEDS: NEURONTIN 100 MG PO ×3 (08:57→21:41)
[2023-09-24] MEDS: ELIQUIS 5 MG PO ×2 (08:58→19:45)
[2023-09-24] MEDS: PACERONE 200 MG PO (08:59)
[2023-09-24] MEDS: DESENEX/MITRAZOL/ZEASORB 1 APPLIC TOPICAL ×2 (09:01→19:46)
--- NOTE | 2023-09-24 09:56 | VNURNOTE ---
Home Health Liaison met with patient and at 1545 09/23, to discuss [facility] nurse/therapy, visits, schedule and homebound status. Patient is agreeable and understands that visits at home will be 2-3 x per week to assess and teach medical management.
[facility] brochure provided with contact information. Patient is aware that [facility] will contact them for start of care in 1-2 days after discharge from .
[facility] referral completed in 'saved' mode in [facility] Port and will be sent closer to discharge.
--- NOTE | 2023-09-24 11:43 | W.PN.HOSP.TC ---
Today's Communication/Plan
-
HD today via temp line
IV Abx per ID; await culture clearance
Assessment / Plan
Assessment / Plan
Assessment:
Septic shock - due to infected dialysis catheter which was removed.�Blood culture positive for Staph aureus. Repeat culture with persistent bacteremia. Continue Ancef per ID.
Lumbar pain
- MRI showing: SEVERE ASYMMETRIC LEFT-SIDED FACET JOINT ARTHROSIS at L4/L5 with a large amount of surrounding enhancing bone marrow and soft tissue edema. Diagnostic possibilities are (1) severe osteoarthritis or (2) septic arthritis given the
history of fever.
- prn pain control
- d/w Spine team and IR. No appreciable fluid to biopsy/collect. Will monitor clinically and treat with IV abx. Pain is overall improving but if it worsens, will repeat MRI.
Troponin elevation - likely non-[place] troponin elevation in the setting of sepsis, ESRD.� No chest pain. Troponin was also elevated during his recent hospitalization. Troponin has peaked.
ESRD - on dialysis Thursday. Nephrology following. They recommend continuing Lasix. s/p temp HD Line placed 09/21. HD schedule per Nephrology
Hyponatremia - sodium 134, improving.�
Hypokalemia - replete prn
Paroxysmal atrial fibrillation - continue amiodarone, Eliquis.
Hypothyroidism - continue Synthroid.
Chronic heart failure preserved EF - stable.
Chronic peripheral neuropathy
Chronic normocytic anemia - hemoglobin stable.
DENISSE
Morbid obesity due to excess calories
Peripheraly neuropathy
- continue Gabapentin, max dose 300/daily.
DVT ppx: Eliquis
Code: Full
Anticipated Discharge: > 48 hours
Subjective/Interval History
-
Date of Service: September 24, 2023
no new complaints presently
states his back pain continues to improve
Objective Data
-
Labs:
Laboratory Results
09/24/23
04:57
WBC 6.2
Hgb 8.9 L
Hct 27.3 L
Plt Count 137
Sodium 134 L
Potassium 3.5
Chloride 102
Carbon Dioxide 27
BUN 47 H
Creatinine 3.6 H
Glucose 106 H
Calcium 8.4
Vital Signs:
Vital Signs
Temp Pulse Resp BP Pulse Ox
98.2 F 86 16 129/77 95
09/24/23 11:00 09/24/23 11:00 09/24/23 11:00 09/24/23 11:00 09/24/23 11:00
I&O
09/23/23 09/24/23 09/25/23
06:59 06:59 06:59
Intake Total 1560 / 1560 1320 / 1320
Output Total 1125 / 1125 725 / 725
Balance 435 / 435 595 / 595
Physical Exam
-
General: No Apparent Distress
HEENT: Normocephalic and Atraumatic
Respiratory: Negative Wheezes or Rales
Cardiac: Regular Rhythm and S1/S2
GI: Soft and Nontender
Musculoskeletal: No Edema
Neuro: AO x 3
Hematologic / Lymphatic: No Lymphadenopathy
Psych: Calm
Data Reviewed
-
Total Time Spent with Patient (in minutes): 45
Labs: Labs Reviewed by me
--- NOTE | 2023-09-24 14:41 | W.PN.NEPH.HD ---
Assessment
-
pt seen during HD
vitals stable
monitor pre HD cr, lower at 3.6
monitor UOP
temp cath-exchange to tunneled when ok with ID
Progress Note - Hemodialysis
-
Date of Service: September 24, 2023
Duration: 30 minutes and 3 hours
Potassium Bath: 3
Calcium Bath: 2.5
Opti-Dialyzer: 160
Ultrafiltration: Other (1-1.5lit)
Blood Flow: 400
Dialysate Flow: 600
Heparin: no
EPO: [id number]
[2023-09-24] MEDS: EPOGEN 10000 UNITS IV (14:51)
--- NOTE | 2023-09-24 15:38 | W.PN.ID1 ---
Date of Service
Date of Service: September 24, 2023
Today's Communication
Continue antibiotics.
Assessment / Plan
Fevers
CLABSI (2* HD catheter; POA)
Positive blood cultures (Staph aureus MSSA)
Leukocytosis
- Improved
Anemia
Hyponatremia
ESRD�HD
Paroxysmal A-fib
CHF
Peripheral neuropathy
HTN
DENISSE
Gout
Morbid obesity
Recommendations:
Continue cefazolin 2 gm IV q24.
Follow blood cultures to assess clearance. Temporary HD catheter placed in left IJ.
MRI suggestive of L4-L5 facet joint arthrosis. Ortho Spine has evaluated; no need for surgery at the present.
Trend white count and temperature curve.
Blood cultures negative x 48 hours. If remain negative, can place permanent catheter, but may consider temp cath removal and a catheter holiday until just before next HD.
At discharge will transition to cefazolin 2 g after Thursday and HD, and 3 g after Thursday HD.
����������������������������������������������������������
Chief Complaint
-: Bacteremia and Other (HD line infection)
Subjective / Review of Systems
Review of Systems: No Fever and No Chills
Vital Signs / Physical Exam
Vital Signs
Vital Signs
Temp Pulse Resp BP Pulse Ox
98.8 F 75 16 149/73 96
09/24/23 15:22 09/24/23 15:22 09/24/23 15:22 09/24/23 15:22 09/24/23 15:22
Physical Exam
Constitutional: No Acute Distress, Comfortable and Non-toxic
Cardiovascular: S1/S2; Negative S3/S4
Pulmonary: Clear; Negative Wheezes or Rhonchi
Gastrointestinal: Soft and Non Tender
Neurological: Awake, Alert and Oriented
Lines: HD Cath (left IJ temp cath)
Objective Data
Lab Data
Lab Results
09/24/23 04:57
09/24/23 04:57
PT 28.9 Sec (11.4-14.6) H 09/18/23 17:27
INR 2.68 09/18/23 17:27
APTT 47.9 Sec (23.4-35.0) H 09/18/23 17:27
Estimated Creat Clear 26 ml/min 09/24/23 04:57
Lactic Acid 1.7 mmol/L (0.7-2.0) 09/18/23 15:46
Total Bilirubin 1.1 mg/dl (0.2-1.3) 09/18/23 10:37
AST 29 U/L (17-59) 09/18/23 10:37
ALT 17 U/L (0-50) 09/18/23 10:37
Alkaline Phosphatase 82 U/L (38-126) 09/18/23 10:37
Most recent labs reviewed.
Micro Results:
09/22/23 13:43 Blood Culture - Preliminary
Blood/Venous No Growth in 48 hours- Final report to follow
09/22/23 13:35 Blood Culture - Preliminary
Blood/Venous No Growth in 48 hours- Final report to follow
09/24/23 04:57 Blood Culture - Pending
Blood/Venous
09/23/23 05:01 Blood Culture - Preliminary
Blood/Venous No Growth in 24 hours- Final report to follow
09/19/23 18:29 Blood Culture - Preliminary
Blood/Venous No Growth in 4 days- Final report to follow
09/21/23 04:00 Blood Culture - Preliminary
Blood/Venous S aureus-Methicillin Sensitive
Gram Stain - Preliminary
09/19/23 12:08 Catheter Tip Culture - Final
Dialysis Line S aureus-Methicillin Sensitive
09/18/23 11:08 Urine Culture - Final
Urine Escherichia coli
09/18/23 18:27 Wound Culture - Final
Neck S aureus-Methicillin Sensitive
Gram Stain - Final
09/18/23 10:37 Blood Culture - Final
Blood/Venous S aureus-Methicillin Sensitive
Gram Stain - Final
09/18/23 17:27 MRSA Screen - Final
Nose No Methicillin Resistant Staphylococcus aureus isolated.
09/18/23 11:08 Influenza Types A & B ([facility]ANNA[facility]) - Final
Nasal Swab Negative for Influenza A & B, NAAT
Negative results must be combined with clinical observations
and patient history.
Nucleic Acid Amplification test (NAAT)performed on the
[employer] platform.
Imaging:
09/21/2023 ECHO (TTE): EF approximately 65%. Enlarged right ventricular size. Normal right ventricular systolic function. Mild tricuspid regurgitation. No evidence for vegetation.
09/21/2023 MRI lumbar spine without and with contrast: Severe asymmetric left-sided facet joint arthrosis at L4/L5 with a large amount of surrounding enhancing bone marrow and soft tissue edema. Septic arthritis is a possibility. No evidence for
epidural or paraspinal abscess. No MRI evidence for acute infectious discitis.
--- NOTE | 2023-09-24 15:44 | CM ---
Discharge plan of care remains: Home with [facility] services.
[2023-09-24] MEDS: ANCEF 10 IV (16:28)
[2023-09-24] MEDS: MELATONIN 5 MG PO (21:41)
[2023-09-25] VITALS (7 sets, daily range): BP systolic 118–141; BP diastolic 66–80; PULSE 84; O2SAT 96; BMI 40.3
[2023-09-25] MEDS: NICORETTE 4 MG PO ×3 (02:53→14:32)
[2023-09-25] MEDS: SYNTHROID 50 MCG PO (05:36)
[2023-09-25 07:22] LABS: Erythrocyte Sed Rate 59 mm/hour (0-20)
[2023-09-25] MEDS: LASIX 80 MG PO (09:04)
[2023-09-25] MEDS: PACERONE 200 MG PO (09:05)
[2023-09-25] MEDS: NEURONTIN 100 MG PO ×3 (09:05→20:54)
[2023-09-25] MEDS: ELIQUIS 5 MG PO ×2 (09:06→20:53)
[2023-09-25] MEDS: DESENEX/MITRAZOL/ZEASORB 1 APPLIC TOPICAL ×2 (09:07→20:54)
--- NOTE | 2023-09-25 11:32 | W.PN.NEPH.PH ---
Today's Communication / Plan
-
HD tomorrow
Assessment/Plan
-
IMP:
Septic shock -suspected infected dialysis catheter
Troponin elevation -likely non-[place]
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
Heart failure with preserved EF
Hypertension with relative hypotension
History of gastric bypass
Back pain
Hyponatremia
Paroxysmal atrial fibrillation recent ablation at [facility]
Hypothyroidism
Chronic peripheral neuropathy
Chronic normocytic anemia
DENISSE
Morbid obesity due to excess calories
Plan:
-abx per ID
-HD tomorrow, then pull CVC for another CVC holiday
-plan for tunnelled HD CVC thursday.
-next week's HD schedule to be determined by rule chair time
-
-
Date of Service: September 25, 2023
CC / HPI / ROS
-
Chief Complaint:
YOHANNES with CKD-HD dependant
History of Present Illness:
BP stable
abx for bacteremia/sepsis
tolerated HD yesterday
Bcx clear
Review of Systems:
no cp or sob
feels well
Labs
-
Labs:
WBC 6.2 10^3/uL (4.8-10.8) 09/24/23 04:57
RBC 3.07 10^6/uL (4.70-6.10) L 09/24/23 04:57
Hgb 8.9 g/dL (13.0-18.0) L 09/24/23 04:57
Hct 27.3 % (39.0-52.0) L 09/24/23 04:57
Plt Count 137 10^3/uL (130-400) 09/24/23 04:57
Sodium 134 mmol/L (135-145) L 09/24/23 04:57
Potassium 3.5 mmol/L (3.5-5.1) 09/24/23 04:57
Chloride 102 mmol/L (98-107) 09/24/23 04:57
Carbon Dioxide 27 mmol/L (22-30) 09/24/23 04:57
BUN 47 mg/dl (9-20) H 09/24/23 04:57
Creatinine 3.6 mg/dL (0.7-1.3) H 09/24/23 04:57
eGFR 17.41 09/24/23 04:57
Glucose 106 mg/dl (70-99) H 09/24/23 04:57
Calcium 8.4 mg/dl (8.4-10.2) 09/24/23 04:57
Jwc-J-Zvgafvsiywp Pept > 88234 pg/ml 09/18/23 10:37
Albumin 3.5 g/dl (3.5-5.0) 09/18/23 10:37
Physical Exam
-
Vital Signs:
Vital Signs
Temp Pulse Resp BP Pulse Ox
97.5 F 78 16 139/74 95
09/25/23 07:45 09/25/23 09:05 09/25/23 07:45 09/25/23 09:05 09/25/23 07:45
Cardiovascular:: Regular rate and rhythm
Respiratory:: Bilateral: Coarse
Lung Excursion:: Normal
Abdomen:: Nontender and Soft
Bowel Sounds:: Normal
Extremity Edema:: None: Bilateral:
--- NOTE | 2023-09-25 11:57 | W.PN.HOSP.TC ---
Today's Communication/Plan
-
HD tomorrow then pull temp CVC line for line holiday prior to Thursday perm cath placement
Assessment / Plan
Assessment / Plan
Assessment:
Septic shock - due to infected dialysis catheter which was removed.�Blood culture positive for Staph aureus. Repeat culture with persistent bacteremia. Continue Ancef per ID.
Lumbar pain
- MRI showing: SEVERE ASYMMETRIC LEFT-SIDED FACET JOINT ARTHROSIS at L4/L5 with a large amount of surrounding enhancing bone marrow and soft tissue edema. Diagnostic possibilities are (1) severe osteoarthritis or (2) septic arthritis given the
history of fever.
- prn pain control
- d/w Spine team and IR. No appreciable fluid to biopsy/collect. Will monitor clinically and treat with IV abx. Pain is overall improving but if it worsens, will repeat MRI 1 week from prior MRI.
Troponin elevation - likely non-[place] troponin elevation in the setting of sepsis, ESRD.� No chest pain. Troponin was also elevated during his recent hospitalization. Troponin has peaked.
ESRD - on dialysis Thursday. Nephrology following. They recommend continuing Lasix. s/p temp HD Line placed 09/21. HD schedule per Nephrology
Hyponatremia - sodium 134, improving.�
Hypokalemia - replete prn
Paroxysmal atrial fibrillation - continue amiodarone, Eliquis.
Hypothyroidism - continue Synthroid.
Chronic heart failure preserved EF - stable.
Chronic peripheral neuropathy
Chronic normocytic anemia - hemoglobin stable.
DENISSE
Morbid obesity due to excess calories
Peripheral neuropathy
- continue Gabapentin, max dose 300/daily.
DVT ppx: Eliquis
Code: Full
Anticipated Discharge: > 48 hours
Subjective/Interval History
-
Date of Service: September 25, 2023
continues to do well, back pain improving
Objective Data
-
Vital Signs:
Vital Signs
Temp Pulse Resp BP Pulse Ox
97.5 F 78 16 139/74 95
09/25/23 07:45 09/25/23 09:05 09/25/23 07:45 09/25/23 09:05 09/25/23 08:20
I&O
09/24/23 09/25/23 09/26/23
06:59 06:59 06:59
Intake Total 1320 / 1320 1140 / 1140
Output Total 725 / 725 850 / 850
Balance 595 / 595 290 / 290
Physical Exam
-
General: No Apparent Distress
HEENT: Normocephalic and Atraumatic
Respiratory: Negative Wheezes
Cardiac: Regular Rhythm
GI: Soft
Genito-urinary: No Costovertebral Tender
Musculoskeletal: No Edema
Neuro: AO x 3
Hematologic / Lymphatic: No Lymphadenopathy
Psych: Calm
Data Reviewed
-
Total Time Spent with Patient (in minutes): 45
Labs: Labs Reviewed by me
--- NOTE | 2023-09-25 12:34 | W.PN.ID1 ---
Date of Service
Date of Service: September 25, 2023
Today's Communication
Blood cultures negative, can place permanent catheter when directed by nephrology, but may consider temp cath removal and a catheter holiday until just before next HD.
At discharge will transition to cefazolin 2 g after Thursday and HD, and 3 g after Thursday HD.
Assessment / Plan
Fevers
CLABSI (2* HD catheter; POA)
Positive blood cultures (Staph aureus MSSA)
Leukocytosis
- Improved
Anemia
Hyponatremia
ESRD�HD
Paroxysmal A-fib
CHF
Peripheral neuropathy
HTN
DENISSE
Gout
Morbid obesity
Recommendations:
Continue cefazolin 2 gm IV q24.
Follow blood cultures to assess clearance. Temporary HD catheter placed in left IJ.
MRI suggestive of L4-L5 facet joint arthrosis. Ortho Spine has evaluated; no need for surgery at the present.
Trend white count and temperature curve.
Blood cultures negative, can place permanent catheter when directed by nephrology, but may consider temp cath removal and a catheter holiday until just before next HD.
At discharge will transition to cefazolin 2 g after Thursday and HD, and 3 g after Thursday HD.
����������������������������������������������������������
Chief Complaint
-: Bacteremia and Other (HD line infection)
Subjective / Review of Systems
afebrile
bp stable
blood cultures tentatively cleared
tolerating current therapy
Vital Signs / Physical Exam
Vital Signs
Vital Signs
Temp Pulse Resp BP Pulse Ox
97.7 F 77 15 141/80 98
09/25/23 11:58 09/25/23 11:58 09/25/23 11:58 09/25/23 11:58 09/25/23 11:58
Physical Exam
Constitutional: No Acute Distress
Cardiovascular: Regular Rate and S1/S2; Negative Murmur or Rub
Pulmonary: Clear and Symmetric; Negative Wheezes or Rales
Gastrointestinal: Soft, Non Tender, Non Distended and Normal Bowel Sounds
Skin: Warm and Dry; Negative Rash or Jaundice
Objective Data
Lab Data
Lab Results
09/24/23 04:57
09/24/23 04:57
ESR 59 mm/hour (0-20) H 09/25/23 04:56
PT 28.9 Sec (11.4-14.6) H 09/18/23 17:27
INR 2.68 09/18/23 17:27
APTT 47.9 Sec (23.4-35.0) H 09/18/23 17:27
Estimated Creat Clear 26 ml/min 09/24/23 04:57
Lactic Acid 1.7 mmol/L (0.7-2.0) 09/18/23 15:46
Total Bilirubin 1.1 mg/dl (0.2-1.3) 09/18/23 10:37
AST 29 U/L (17-59) 09/18/23 10:37
ALT 17 U/L (0-50) 09/18/23 10:37
Alkaline Phosphatase 82 U/L (38-126) 09/18/23 10:37
C-Reactive Protein 25.70 mg/L (0.0-10.00) H 09/25/23 04:56
Most recent labs reviewed.
Micro Results:
09/24/23 04:57 Blood Culture - Preliminary
Blood/Venous No Growth in 24 hours- Final report to follow
09/23/23 05:01 Blood Culture - Preliminary
Blood/Venous No Growth in 48 hours- Final report to follow
09/25/23 04:56 Blood Culture - Pending
Blood/Venous
09/19/23 18:29 Blood Culture - Final
Blood/Venous No Growth - Final Report
09/22/23 13:43 Blood Culture - Preliminary
Blood/Venous No Growth in 48 hours- Final report to follow
09/22/23 13:35 Blood Culture - Preliminary
Blood/Venous No Growth in 48 hours- Final report to follow
09/21/23 04:00 Blood Culture - Preliminary
Blood/Venous S aureus-Methicillin Sensitive
Gram Stain - Preliminary
09/19/23 12:08 Catheter Tip Culture - Final
Dialysis Line S aureus-Methicillin Sensitive
09/18/23 11:08 Urine Culture - Final
Urine Escherichia coli
09/18/23 18:27 Wound Culture - Final
Neck S aureus-Methicillin Sensitive
Gram Stain - Final
09/18/23 10:37 Blood Culture - Final
Blood/Venous S aureus-Methicillin Sensitive
Gram Stain - Final
09/18/23 17:27 MRSA Screen - Final
Nose No Methicillin Resistant Staphylococcus aureus isolated.
09/18/23 11:08 Influenza Types A & B ([facility]ANNAH) - Final
Nasal Swab Negative for Influenza A & B, NAAT
Negative results must be combined with clinical observations
and patient history.
Nucleic Acid Amplification test (NAAT)performed on the
[employer] platform.
Imaging:
09/21/2023 ECHO (TTE): EF approximately 65%. Enlarged right ventricular size. Normal right ventricular systolic function. Mild tricuspid regurgitation. No evidence for vegetation.
09/21/2023 MRI lumbar spine without and with contrast: Severe asymmetric left-sided facet joint arthrosis at L4/L5 with a large amount of surrounding enhancing bone marrow and soft tissue edema. Septic arthritis is a possibility. No evidence for
epidural or paraspinal abscess. No MRI evidence for acute infectious discitis.
[2023-09-25] MEDS: ANCEF 10 IV (14:15)
--- NOTE | 2023-09-25 15:35 | CM ---
Addendum entered by Marlon Box 09/25/23 15:56:
[facility] new to [facility]. Need to set up [facility] in [place]. Initiated process.
Original Note:
Per MD: Plan is to remove temporary dialysis catheter today; On Thursday a permanent dialysis catheter will be placed, and; On Thursday or Thursday next week anticipate discharge.
[2023-09-25] MEDS: MELATONIN 5 MG PO (23:27)
[2023-09-26 03:26] VITALS: BP 112/65
[2023-09-26] MEDS: SYNTHROID 50 MCG PO (05:46)
[2023-09-26 05:48] VITALS: BMI 40.3
[2023-09-26 07:39] VITALS: BP 136/65
[2023-09-26 08:33] LABS: Hematocrit 28.2 % (39.0-52.0); Hemoglobin 9.2 g/dL (13.0-18.0); Mean Corp Hgb Conc. 32.6 g/dL (33.0-37.0); Mean Corpuscular Hgb 28.9 pg (27.0-31.0); Mean Corpuscular Volume 88.7 fL (80.0-94.0); Mean Platelet Volume 9.3 fL (7.4-10.4); Platelet Count 180 10^3/uL (130-400); Red Blood Cell Count 3.18 10^6/uL (4.70-6.10); Red Cell Dist. Width 14.8 % (11.5-14.5); White Blood Cell Count 5.4 10^3/uL (4.8-10.8)
--- NOTE | 2023-09-26 08:42 | W.PN.ID1 ---
Date of Service
Date of Service: September 26, 2023
Today's Communication
Can place perm cath on Thursday.
Assessment / Plan
Fevers resolved
CLABSI (2* HD catheter; POA)
Positive blood cultures (Staph aureus MSSA)
Leukocytosis
-resolved
Anemia
Hyponatremia
ESRD�HD
Paroxysmal A-fib
CHF
Peripheral neuropathy
HTN
DENISSE
Gout
Morbid obesity
Recommendations:
Continue cefazolin 2 gm IV q24.
Repeat blood cultures negative to date. Temporary HD catheter placed in left IJ.
MRI suggestive of L4-L5 facet joint arthrosis. Ortho Spine has evaluated; no need for surgery at the present.
Can place permanent catheter on Thursday 09/28.
At discharge will transition to cefazolin 2 g after Thursday and HD, and 3 g after Thursday HD.
����������������������������������������������������������
Chief Complaint
-: Bacteremia and Other (HD line infection)
Subjective / Review of Systems
Getting dialysis. No complaints.
Vital Signs / Physical Exam
Vital Signs
Vital Signs
Temp Pulse Resp BP Pulse Ox
97.3 F 78 14 136/65 92
09/26/23 07:39 09/26/23 07:39 09/26/23 07:39 09/26/23 07:39 09/26/23 07:39
Physical Exam
Constitutional: No Acute Distress, Comfortable and Obese
Cardiovascular: Regular Rate and S1/S2
Pulmonary: Clear
Gastrointestinal: Soft, Non Tender and Non Distended
Neurological: AO x 3
Objective Data
Lab Data
ESR 59 mm/hour (0-20) H 09/25/23 04:56
PT 28.9 Sec (11.4-14.6) H 09/18/23 17:27
INR 2.68 09/18/23 17:27
APTT 47.9 Sec (23.4-35.0) H 09/18/23 17:27
Estimated Creat Clear 26 ml/min 09/24/23 04:57
Lactic Acid 1.7 mmol/L (0.7-2.0) 09/18/23 15:46
Total Bilirubin 1.1 mg/dl (0.2-1.3) 09/18/23 10:37
AST 29 U/L (17-59) 09/18/23 10:37
ALT 17 U/L (0-50) 09/18/23 10:37
Alkaline Phosphatase 82 U/L (38-126) 09/18/23 10:37
C-Reactive Protein 25.70 mg/L (0.0-10.00) H 09/25/23 04:56
Most recent labs reviewed.
Micro Results:
09/26/23 08:18 Blood Culture - Pending
Blood/Venous
09/24/23 04:57 Blood Culture - Preliminary
Blood/Venous No Growth in 48 hours- Final report to follow
09/23/23 05:01 Blood Culture - Preliminary
Blood/Venous No Growth in 72 hours- Final report to follow
09/25/23 04:56 Blood Culture - Preliminary
Blood/Venous No Growth in 24 hours- Final report to follow
09/22/23 13:35 Blood Culture - Preliminary
Blood/Venous No Growth in 72 hours- Final report to follow
09/22/23 13:43 Blood Culture - Preliminary
Blood/Venous No Growth in 72 hours- Final report to follow
09/19/23 18:29 Blood Culture - Final
Blood/Venous No Growth - Final Report
09/21/23 04:00 Blood Culture - Preliminary
Blood/Venous S aureus-Methicillin Sensitive
Gram Stain - Preliminary
09/19/23 12:08 Catheter Tip Culture - Final
Dialysis Line S aureus-Methicillin Sensitive
09/18/23 11:08 Urine Culture - Final
Urine Escherichia coli
09/18/23 18:27 Wound Culture - Final
Neck S aureus-Methicillin Sensitive
Gram Stain - Final
09/18/23 10:37 Blood Culture - Final
Blood/Venous S aureus-Methicillin Sensitive
Gram Stain - Final
09/18/23 17:27 MRSA Screen - Final
Nose No Methicillin Resistant Staphylococcus aureus isolated.
09/18/23 11:08 Influenza Types A & B (HANNAH) - Final
Nasal Swab Negative for Influenza A & B, NAAT
Negative results must be combined with clinical observations
and patient history.
Nucleic Acid Amplification test (NAAT)performed on the
[employer] platform.
Imaging:
09/21/2023 ECHO (TTE): EF approximately 65%. Enlarged right ventricular size. Normal right ventricular systolic function. Mild tricuspid regurgitation. No evidence for vegetation.
09/21/2023 MRI lumbar spine without and with contrast: Severe asymmetric left-sided facet joint arthrosis at L4/L5 with a large amount of surrounding enhancing bone marrow and soft tissue edema. Septic arthritis is a possibility. No evidence for
epidural or paraspinal abscess. No MRI evidence for acute infectious discitis.
[2023-09-26 09:06] LABS: Blood Urea Nitrogen 38 mg/dl (9-20); Carbon Dioxide 24 mmol/L (22-30); Chloride 102 mmol/L (98-107); Estimated Creatinine Clearance 28 ml/min; Glucose 149 mg/dl (70-99); Potassium 3.6 mmol/L (3.5-5.1); Sodium 134 mmol/L (135-145); eGFR 19.32
[2023-09-26 09:07] LABS: Calcium 8.2 mg/dl (8.4-10.2)
--- NOTE | 2023-09-26 09:14 | W.PN.NEPH.HD ---
Assessment
-
Seen on HD> no complaints. VSS, access temp
dc temp CVC today
Progress Note - Hemodialysis
-
Date of Service: September 26, 2023
Duration: 30 minutes and 3 hours
Potassium Bath: 2
Calcium Bath: 2.5
Opti-Dialyzer: 160
Ultrafiltration: Other (2kg)
Blood Flow: 400
Dialysate Flow: 600
Heparin: 0
EPO: [id number] units
[2023-09-26] MEDS: NEURONTIN PO (09:17)
[2023-09-26] MEDS: EPOGEN 10000 UNITS IV (09:45)
[2023-09-26 10:51] VITALS: BP 126/73
--- NOTE | 2023-09-26 11:27 | W.PN.HOSP.TC ---
Today's Communication/Plan
-
HD then removed temp HD line
IRAD to place tunnelled HD line Thursday
Assessment / Plan
Assessment / Plan
Assessment:
Septic shock - due to infected tunnelled dialysis catheter which was removed.�Blood culture positive for Staph aureus. Repeat culture with persistent bacteremia. Continue Ancef per ID.
Lumbar pain
- MRI showing: SEVERE ASYMMETRIC LEFT-SIDED FACET JOINT ARTHROSIS at L4/L5 with a large amount of surrounding enhancing bone marrow and soft tissue edema. Diagnostic possibilities are (1) severe osteoarthritis or (2) septic arthritis given the
history of fever.
- prn pain control
- d/w Spine team and IR. No appreciable fluid to biopsy/collect. Will monitor clinically and treat with IV abx. Pain is overall improving but if it worsens, will repeat MRI 1 week from prior MRI.
Troponin elevation - likely non-[place] troponin elevation in the setting of sepsis, ESRD.� No chest pain. Troponin was also elevated during his recent hospitalization. Troponin has peaked.
ESRD - on dialysis Thursday outpatient. Nephrology following. They recommend continuing Lasix. s/p temp HD Line placed 09/21. HD schedule per Nephrology
Hyponatremia - sodium 134, improving.�
Hypokalemia - replete prn
Paroxysmal atrial fibrillation - continue amiodarone, Eliquis.
Hypothyroidism - continue Synthroid.
Chronic heart failure preserved EF - stable.
Chronic peripheral neuropathy
Chronic normocytic anemia - hemoglobin stable.
DENISSE
Morbid obesity due to excess calories
Peripheral neuropathy
- continue Gabapentin, max dose 300/daily.
DVT ppx: Eliquis
Code: Full
Anticipated Discharge: > 48 hours
Subjective/Interval History
-
Date of Service: September 26, 2023
on HD doing well
after HD will have HD line removed
Objective Data
-
Labs:
Laboratory Results
09/26/23
08:18
WBC 5.4
Hgb 9.2 L
Hct 28.2 L
Plt Count 180 D
Sodium 134 L
Potassium 3.6
Chloride 102
Carbon Dioxide 24
BUN 38 H
Creatinine 3.3 H
Glucose 149 H
Calcium 8.2 L
Vital Signs:
Vital Signs
Temp Pulse Resp BP Pulse Ox
97.6 F 70 16 126/73 100
09/26/23 10:51 09/26/23 10:51 09/26/23 10:51 09/26/23 10:51 09/26/23 10:51
I&O
09/25/23 09/26/23 09/27/23
06:59 06:59 06:59
Intake Total 1140 / 1140 960 / 960
Output Total 850 / 850 925 / 925
Balance 290 / 290 35 / 35
Physical Exam
-
General: No Apparent Distress
HEENT: Normocephalic and Atraumatic
Respiratory: Negative Wheezes or Rales
Cardiac: Regular Rhythm and S1/S2
GI: Soft
Genito-urinary: No Costovertebral Tender
Neuro: AO x 3
Hematologic / Lymphatic: No Lymphadenopathy
Psych: Calm
Data Reviewed
-
Total Time Spent with Patient (in minutes): 45
Labs: Labs Reviewed by me
[2023-09-26] MEDS: PACERONE 200 MG PO (11:58)
[2023-09-26] MEDS: ELIQUIS 5 MG PO ×2 (11:58→20:29)
[2023-09-26] MEDS: LASIX PO (11:58)
[2023-09-26] MEDS: DESENEX/MITRAZOL/ZEASORB 1 APPLIC TOPICAL ×2 (11:59→20:34)
--- NOTE | 2023-09-26 12:56 | PN.IRAD.UPD ---
Update Note - IRAD
- -
Left side temp catheter removal at bedside. New clean dry dressing placed over site. Patient tolerated procedure well.
[2023-09-26] MEDS: ANCEF 10 IV (13:01)
[2023-09-26 14:42] VITALS: BP 116/68
[2023-09-26] MEDS: NEURONTIN 100 MG PO ×2 (15:07→20:29)
[2023-09-26] MEDS: TYLENOL 650 MG PO (15:11)
[2023-09-26] MEDS: NICORETTE 4 MG PO ×2 (16:14→20:33)
[2023-09-26 19:25] VITALS: BP 117/56
[2023-09-26] MEDS: MELATONIN 5 MG PO (22:01)
[2023-09-26 23:47] VITALS: BP 116/77
[2023-09-27 03:19] VITALS: BP 124/68
[2023-09-27] MEDS: SYNTHROID 50 MCG PO (05:55)
[2023-09-27 07:05] VITALS: BP 130/73
[2023-09-27] MEDS: LASIX 80 MG PO (07:47)
[2023-09-27] MEDS: ELIQUIS 5 MG PO ×2 (07:48→20:16)
[2023-09-27] MEDS: NEURONTIN 100 MG PO ×3 (07:48→22:13)
[2023-09-27] MEDS: PACERONE 200 MG PO (07:48)
[2023-09-27] MEDS: DESENEX/MITRAZOL/ZEASORB 1 APPLIC TOPICAL ×2 (07:48→20:16)
[2023-09-27] MEDS: NICORETTE 4 MG PO ×2 (07:57→18:23)
[2023-09-27] MEDS: TYLENOL 650 MG PO ×2 (07:57→18:23)
[2023-09-27 11:05] VITALS: BP 131/63
--- NOTE | 2023-09-27 11:16 | W.PN.HOSP.TC ---
Today's Communication/Plan
-
HD tunnelled cath Thursday; NPO p MN
continue IV Abx
Assessment / Plan
Assessment / Plan
Assessment:
Septic shock - due to infected tunnelled dialysis catheter which was removed.�Blood culture positive for Staph aureus. Repeat culture with persistent bacteremia. Continue Ancef per ID.
Lumbar pain
- MRI showing: SEVERE ASYMMETRIC LEFT-SIDED FACET JOINT ARTHROSIS at L4/L5 with a large amount of surrounding enhancing bone marrow and soft tissue edema. Diagnostic possibilities are (1) severe osteoarthritis or (2) septic arthritis given the
history of fever.
- prn pain control
- d/w Spine team and IR. No appreciable fluid to biopsy/collect. Will monitor clinically and treat with IV abx. Pain is overall improving but if it worsens, will repeat MRI 1 week from prior MRI.
Troponin elevation - likely non-TN troponin elevation in the setting of sepsis, ESRD.� No chest pain. Troponin was also elevated during his recent hospitalization. Troponin has peaked.
ESRD - on dialysis Thursday outpatient. Nephrology following. They recommend continuing Lasix. s/p temp HD Line placed 09/21. HD schedule per Nephrology
Hyponatremia - sodium 134, improving.�
Hypokalemia - replete prn
Paroxysmal atrial fibrillation - continue amiodarone, Eliquis.
Hypothyroidism - continue Synthroid.
Chronic heart failure preserved EF - stable.
Chronic peripheral neuropathy
Chronic normocytic anemia - hemoglobin stable.
DENISSE
Morbid obesity due to excess calories
Peripheral neuropathy
- continue Gabapentin, max dose 300/daily.
DVT ppx: Eliquis
Code: Full
Anticipated Discharge: > 48 hours
Subjective/Interval History
-
Date of Service: September 27, 2023
no new complaints
Objective Data
-
Vital Signs:
Vital Signs
Temp Pulse Resp BP Pulse Ox
98.4 F 81 18 130/73 98
09/27/23 07:05 09/27/23 07:48 09/27/23 07:05 09/27/23 07:48 09/27/23 10:08
I&O
09/26/23 09/27/23 09/28/23
06:59 06:59 06:59
Intake Total 960 / 960 1080 / 1080
Output Total 925 / 925 400 / 400
Balance 35 / 35 680 / 680
Physical Exam
-
General: No Apparent Distress
HEENT: Normocephalic and Atraumatic
Respiratory: Negative Wheezes
Cardiac: Regular Rhythm and S1/S2
GI: Soft
Genito-urinary: No Costovertebral Tender
Neuro: AO x 3
Psych: Calm
Data Reviewed
-
Total Time Spent with Patient (in minutes): 47
Labs: Labs Reviewed by me
--- NOTE | 2023-09-27 12:43 | W.PN.NEPH.PH ---
Today's Communication / Plan
-
HD tomorrow
Assessment/Plan
-
IMP:
Septic shock -suspected infected dialysis catheter
Troponin elevation -likely non-DC
Recent YOHANNES with CKD 3B vs 4, HD dependent since 08/18/23-MWF at [facility]
Heart failure with preserved EF
Hypertension with relative hypotension
History of gastric bypass
Back pain
Hyponatremia
Paroxysmal atrial fibrillation recent ablation at [facility]
Hypothyroidism
Chronic peripheral neuropathy
Chronic normocytic anemia
DENISSE
Morbid obesity due to excess calories
Plan:
-abx per ID
-HD tomorrow, after tunnelled HD CVC placement
-next week's HD schedule to be determined by jarreau chair time
-there does appear to be some improvement in renal function
-
-
Date of Service: September 27, 2023
CC / HPI / ROS
-
Chief Complaint:
YOHANNES with CKD-HD dependant
History of Present Illness:
BP stable
abx for bacteremia/sepsis
tolerated HD yesterday
Bcx clear
Review of Systems:
no cp or sob
feels well
Labs
-
Labs:
WBC 5.4 10^3/uL (4.8-10.8) 09/26/23 08:18
RBC 3.18 10^6/uL (4.70-6.10) L 09/26/23 08:18
Hgb 9.2 g/dL (13.0-18.0) L 09/26/23 08:18
Hct 28.2 % (39.0-52.0) L 09/26/23 08:18
Plt Count 180 10^3/uL (130-400) D 09/26/23 08:18
Sodium 134 mmol/L (135-145) L 09/26/23 08:18
Potassium 3.6 mmol/L (3.5-5.1) 09/26/23 08:18
Chloride 102 mmol/L (98-107) 09/26/23 08:18
Carbon Dioxide 24 mmol/L (22-30) 09/26/23 08:18
BUN 38 mg/dl (9-20) H 09/26/23 08:18
Creatinine 3.3 mg/dL (0.7-1.3) H 09/26/23 08:18
eGFR 19.32 09/26/23 08:18
Glucose 149 mg/dl (70-99) H 09/26/23 08:18
Calcium 8.2 mg/dl (8.4-10.2) L 09/26/23 08:18
Ilq-M-Xxcisvgayox Pept > 50904 pg/ml 09/18/23 10:37
Albumin 3.5 g/dl (3.5-5.0) 09/18/23 10:37
Physical Exam
-
Vital Signs:
Vital Signs
Temp Pulse Resp BP Pulse Ox
97.8 F 73 16 131/63 97
09/27/23 11:05 09/27/23 11:05 09/27/23 11:05 09/27/23 11:05 09/27/23 11:05
Cardiovascular:: Regular rate and rhythm
Respiratory:: Bilateral: Coarse
Lung Excursion:: Normal
Abdomen:: Nontender and Soft
Bowel Sounds:: Normal
Extremity Edema:: None: Bilateral:
[2023-09-27] MEDS: ANCEF 10 IV (13:11)
[2023-09-27 15:08] VITALS: BP 122/68
[2023-09-27 19:56] VITALS: BP 113/65
[2023-09-27] MEDS: MELATONIN 5 MG PO (22:13)
[2023-09-27 23:24] VITALS: BP 135/61
[2023-09-28] VITALS (10 sets, daily range): BP systolic 67–148; BP diastolic 56–79; BMI 40.0
[2023-09-28] MEDS: SYNTHROID 50 MCG PO (06:01)
[2023-09-28 06:37] LABS: Hematocrit 29.9 % (39.0-52.0); Hemoglobin 9.8 g/dL (13.0-18.0); Mean Corp Hgb Conc. 32.8 g/dL (33.0-37.0); Mean Corpuscular Volume 88.5 fL (80.0-94.0); Mean Platelet Volume 9.4 fL (7.4-10.4); Platelet Count 199 10^3/uL (130-400); Red Blood Cell Count 3.38 10^6/uL (4.70-6.10); Red Cell Dist. Width 14.9 % (11.5-14.5); White Blood Cell Count 8.5 10^3/uL (4.8-10.8)
[2023-09-28 07:05] LABS: Blood Urea Nitrogen 47 mg/dl (9-20); Calcium 8.3 mg/dl (8.4-10.2); Carbon Dioxide 22 mmol/L (22-30); Chloride 101 mmol/L (98-107); Estimated Creatinine Clearance 24 ml/min; Glucose 107 mg/dl (70-99); Potassium 3.7 mmol/L (3.5-5.1); Sodium 132 mmol/L (135-145); eGFR 16.31
[2023-09-28] MEDS: DESENEX/MITRAZOL/ZEASORB 1 APPLIC TOPICAL ×2 (09:06→19:46)
[2023-09-28] MEDS: LASIX 80 MG PO (09:07)
[2023-09-28] MEDS: PACERONE 200 MG PO (09:07)
[2023-09-28] MEDS: ELIQUIS 5 MG PO ×2 (09:07→19:45)
[2023-09-28] MEDS: NEURONTIN 100 MG PO ×3 (09:07→19:45)
--- NOTE | 2023-09-28 10:33 | W.PN.HOSP.TC ---
Today's Communication/Plan
-
Permacath today
Assessment / Plan
Assessment / Plan
Gen-AAOx3, NAD
HEENT-NC, AT, anicteric, clear oral mm
Neck-supple
CV-reg, no M, +S1/S2
Lungs-clear B/L
Abd-soft, NT, ND
Ext-no edema
Musculoskeletal-no cyanosis, clubbing
Skin-warm and dry
Neuro-grossly non-focal
Psych-calm, cooperative
Septic shock - due to infected tunnelled dialysis catheter which was removed.�Blood culture positive for Staph aureus. Repeat culture with persistent bacteremia. Continue Ancef per ID.
Lumbar pain
- MRI showing: SEVERE ASYMMETRIC LEFT-SIDED FACET JOINT ARTHROSIS at L4/L5 with a large amount of surrounding enhancing bone marrow and soft tissue edema. Diagnostic possibilities are (1) severe osteoarthritis or (2) septic arthritis given the
history of fever.
- prn pain control
- d/w Spine team and IR. No appreciable fluid to biopsy/collect. Will monitor clinically and treat with IV abx. Pain is overall improving but if it worsens, will repeat MRI 1 week from prior MRI.
Troponin elevation - likely non-ME troponin elevation in the setting of sepsis, ESRD.� No chest pain. Troponin was also elevated during his recent hospitalization. Troponin has peaked.
ESRD - on dialysis Thursday outpatient. Nephrology following. They recommend continuing Lasix. s/p temp HD Line placed 09/21. HD schedule per Nephrology
Hyponatremia - sodium 134, improving.�
Hypokalemia - replete prn
Paroxysmal atrial fibrillation - continue amiodarone, Eliquis.
Hypothyroidism - continue Synthroid.
Chronic heart failure preserved EF - stable.
Chronic peripheral neuropathy
Chronic normocytic anemia - hemoglobin stable.
DENISSE
Morbid obesity due to excess calories
Peripheral neuropathy
- continue Gabapentin, max dose 300/daily.
DVT ppx: Eliquis
Code: Full
Dispo -anticipate discharge tomorrow after dialysis. Will need IV antibiotics 3 days a week on dialysis. Infectious disease. Case management aware.
Anticipated Discharge: Within 24 hours
Subjective/Interval History
-
Date of Service: September 28, 2023
Patient seen and examined. No complaints.
Objective Data
-
Labs:
Laboratory Results
09/28/23
05:36
WBC 8.5
Hgb 9.8 L
Hct 29.9 L
Plt Count 199
Sodium 132 L
Potassium 3.7
Chloride 101
Carbon Dioxide 22
BUN 47 H
Creatinine 3.8 H
Glucose 107 H
Calcium 8.3 L
Vital Signs:
Vital Signs
Temp Pulse Resp BP Pulse Ox
98.0 F 71 18 120/62 99
09/28/23 07:05 09/28/23 09:07 09/28/23 07:05 09/28/23 09:07 09/28/23 07:05
I&O
09/27/23 09/28/23 09/29/23
06:59 06:59 06:59
Intake Total 1080 / 1080 1920 / 1920
Output Total 400 / 400 700 / 700
Balance 680 / 680 1220 / 1220
Review of Systems
-
History Source: Patient
All other systems: Reviewed and negative
--- NOTE | 2023-09-28 11:43 | W.PN.ID1 ---
Date of Service
Date of Service: September 28, 2023
Today's Communication
Continue antibiotics.
Assessment / Plan
Fevers; resolved
CLABSI (2* HD catheter; POA)
Positive blood cultures (Staph aureus MSSA)
- positive 09/18 - 09/21.
- clear 09/22 onward
Leukocytosis
-resolved
Anemia
Hyponatremia
ESRD�HD
Paroxysmal A-fib
CHF
Peripheral neuropathy
HTN
DENISSE
Gout
Morbid obesity
Recommendations:
Continue cefazolin 2 gm IV q24 while inpatient.
At discharge, patient will begin cefazolin after hemodialysis
- Cefazolin 2 g after HD on Thu / Thu
- Cefazolin 2 g after HD on Thu
- Script has been given to case management.
MRI suggestive of L4-L5 facet joint arthrosis. Ortho Spine has evaluated; no need for surgery at the present.
For permanent catheter today.
����������������������������������������������������������
Chief Complaint
-: Bacteremia and Other (HD line infection)
Subjective / Review of Systems
Patient seen and examined. Overall feels well. Currently awaiting placement of permanent HD line. Still with mild low back pain, but reports overall improved.
Review of Systems: No Fever and No Chills
Vital Signs / Physical Exam
Vital Signs
Vital Signs
Temp Pulse Resp BP Pulse Ox
98.0 F 71 18 120/62 99
09/28/23 07:05 09/28/23 09:07 09/28/23 07:05 09/28/23 09:07 09/28/23 07:05
Physical Exam
Constitutional: No Acute Distress, Comfortable and Non-toxic
Eyes: No Conjunctival Hemorrhage and Sclera Anicteric
Cardiovascular: S1/S2; Negative S3/S4
Pulmonary: Non Labored
Musculoskeletal: Negative Spinal Tenderness
Neurological: Awake and Alert
Psychological: Calm
Objective Data
Lab Data
Lab Results
09/28/23 05:36
09/28/23 05:36
ESR 59 mm/hour (0-20) H 09/25/23 04:56
PT 28.9 Sec (11.4-14.6) H 09/18/23 17:27
INR 2.68 09/18/23 17:27
APTT 47.9 Sec (23.4-35.0) H 09/18/23 17:27
Estimated Creat Clear 24 ml/min 09/28/23 05:36
Lactic Acid 1.7 mmol/L (0.7-2.0) 09/18/23 15:46
Total Bilirubin 1.1 mg/dl (0.2-1.3) 09/18/23 10:37
AST 29 U/L (17-59) 09/18/23 10:37
ALT 17 U/L (0-50) 09/18/23 10:37
Alkaline Phosphatase 82 U/L (38-126) 09/18/23 10:37
C-Reactive Protein 25.70 mg/L (0.0-10.00) H 09/25/23 04:56
Most recent labs reviewed.
Micro Results:
09/26/23 08:18 Blood Culture - Preliminary
Blood/Venous No Growth in 48 hours- Final report to follow
09/27/23 06:11 Blood Culture - Preliminary
Blood/Venous No Growth in 24 hours- Final report to follow
09/24/23 04:57 Blood Culture - Preliminary
Blood/Venous No Growth in 4 days- Final report to follow
09/23/23 05:01 Blood Culture - Final
Blood/Venous No Growth - Final Report
09/25/23 04:56 Blood Culture - Preliminary
Blood/Venous No Growth in 72 hours- Final report to follow
09/22/23 13:35 Blood Culture - Final
Blood/Venous No Growth - Final Report
09/22/23 13:43 Blood Culture - Final
Blood/Venous No Growth - Final Report
09/21/23 04:00 Blood Culture - Final
Blood/Venous S aureus-Methicillin Sensitive
Gram Stain - Final
09/19/23 18:29 Blood Culture - Final
Blood/Venous No Growth - Final Report
09/19/23 12:08 Catheter Tip Culture - Final
Dialysis Line S aureus-Methicillin Sensitive
09/18/23 11:08 Urine Culture - Final
Urine Escherichia coli
09/18/23 18:27 Wound Culture - Final
Neck S aureus-Methicillin Sensitive
Gram Stain - Final
09/18/23 10:37 Blood Culture - Final
Blood/Venous S aureus-Methicillin Sensitive
Gram Stain - Final
09/18/23 17:27 MRSA Screen - Final
Nose No Methicillin Resistant Staphylococcus aureus isolated.
09/18/23 11:08 Influenza Types A & B (HANNAH) - Final
Nasal Swab Negative for Influenza A & B, NAAT
Negative results must be combined with clinical observations
and patient history.
Nucleic Acid Amplification test (NAAT)performed on the
[employer] platform.
Imaging:
09/21/2023 ECHO (TTE): EF approximately 65%. Enlarged right ventricular size. Normal right ventricular systolic function. Mild tricuspid regurgitation. No evidence for vegetation.
09/21/2023 MRI lumbar spine without and with contrast: Severe asymmetric left-sided facet joint arthrosis at L4/L5 with a large amount of surrounding enhancing bone marrow and soft tissue edema. Septic arthritis is a possibility. No evidence for
epidural or paraspinal abscess. No MRI evidence for acute infectious discitis.
Care Review
Plan reviewed with: Physician (Nephrology; Hospitalist)
--- NOTE | 2023-09-28 13:38 | W.PN.NEPH.PH ---
Today's Communication / Plan
-
Hd tomorrow
needs tunneled HD catheter
Assessment/Plan
-
IMP:
Septic shock -suspected infected dialysis catheter
Troponin elevation -likely non-TN
Recent YOHANNES with CKD 3B vs 4, HD dependent since 08/18/23-[facility] at [facility]
Heart failure with preserved EF
Hypertension with relative hypotension
History of gastric bypass
Back pain
Hyponatremia
Paroxysmal atrial fibrillation recent ablation at [facility]
Hypothyroidism
Chronic peripheral neuropathy
Chronic normocytic anemia
DENISSE
Morbid obesity due to excess calories
Plan:
-HD tomorrow,
-then resume HD on Thursday at [place]
-remains nonoliguric, creatinine up to 3.8
-
-
Date of Service: September 28, 2023
CC / HPI / ROS
-
Chief Complaint:
YOHANNES with CKD-HD dependant
History of Present Illness:
BP stable
abx for bacteremia/sepsis
ESRD on HD
Bcx clear
Review of Systems:
no cp or sob
feels well
Labs
-
Labs:
WBC 8.5 10^3/uL (4.8-10.8) 09/28/23 05:36
RBC 3.38 10^6/uL (4.70-6.10) L 09/28/23 05:36
Hgb 9.8 g/dL (13.0-18.0) L 09/28/23 05:36
Hct 29.9 % (39.0-52.0) L 09/28/23 05:36
Plt Count 199 10^3/uL (130-400) 09/28/23 05:36
Sodium 132 mmol/L (135-145) L 09/28/23 05:36
Potassium 3.7 mmol/L (3.5-5.1) 09/28/23 05:36
Chloride 101 mmol/L (98-107) 09/28/23 05:36
Carbon Dioxide 22 mmol/L (22-30) 09/28/23 05:36
BUN 47 mg/dl (9-20) H 09/28/23 05:36
Creatinine 3.8 mg/dL (0.7-1.3) H 09/28/23 05:36
eGFR 16.31 09/28/23 05:36
Glucose 107 mg/dl (70-99) H 09/28/23 05:36
Calcium 8.3 mg/dl (8.4-10.2) L 09/28/23 05:36
Vrv-F-Rbuxqvxrscl Pept > 72377 pg/ml 09/18/23 10:37
Albumin 3.5 g/dl (3.5-5.0) 09/18/23 10:37
Physical Exam
-
Vital Signs:
Vital Signs
Temp Pulse Resp BP Pulse Ox
97.8 F 70 16 120/67 96
09/28/23 11:29 09/28/23 11:29 09/28/23 11:29 09/28/23 11:29 09/28/23 11:29
Cardiovascular:: Regular rate and rhythm
Respiratory:: Bilateral: Coarse
Lung Excursion:: Normal
Abdomen:: Nontender and Soft
Bowel Sounds:: Normal
Extremity Edema:: None: Bilateral:
Martins Catheter: No
[2023-09-28] MEDS: ANCEF 10 IV (14:09)
--- NOTE | 2023-09-28 17:08 | CM ---
Patient will need HD with [facility] in [place]. His chair days are M-W-. Irrigation Service Technician aware of change in schedule and approved. Chair time is 5am on 09/30/23. He will also need to have IV/AB on days of HD. IV/AB script and additional records
forwarded earlier today to [facility]. Discharge Plan of Care: Home with [facility].
[2023-09-28] MEDS: MELATONIN 5 MG PO (22:00)
[2023-09-29 06:00] VITALS: BMI 39.7
[2023-09-29] MEDS: SYNTHROID 50 MCG PO (06:06)
[2023-09-29] MEDS: NICORETTE 4 MG PO (06:10)
[2023-09-29] MEDS: LASIX PO (07:42)
[2023-09-29] MEDS: NEURONTIN 100 MG PO (07:47)
[2023-09-29] MEDS: ELIQUIS 5 MG PO (07:47)
[2023-09-29] MEDS: PACERONE 200 MG PO (07:49)
[2023-09-29] MEDS: DESENEX/MITRAZOL/ZEASORB 1 APPLIC TOPICAL (07:51)
[2023-09-29 07:55] VITALS: BP 134/73
[2023-09-29 08:39] LABS: Hematocrit 30.1 % (39.0-52.0); Hemoglobin 9.9 g/dL (13.0-18.0)
[2023-09-29] MEDS: EPOGEN 10000 UNITS IV (08:54)
[2023-09-29 09:00] LABS: Blood Urea Nitrogen 45 mg/dl (9-20); Calcium 6.8 mg/dl (8.4-10.2); Carbon Dioxide 18 mmol/L (22-30); Chloride 108 mmol/L (98-107); Estimated Creatinine Clearance 28 ml/min; Glucose 178 mg/dl (70-99); Potassium 3.2 mmol/L (3.5-5.1); Sodium 135 mmol/L (135-145); eGFR 19.32
--- NOTE | 2023-09-29 10:14 | VNURNOTE ---
[facility] referral completed in [facility] after review of chart.
--- NOTE | 2023-09-29 10:14 | W.PN.NEPH.HD ---
Assessment
-
Patient seen on HD
sbp 111 at current u/f
patient for discharge today after HD
will need close follow up labs on HD as his kidney function may be improving
creatinine was down to 3.3 this am, but still have volume gains
Progress Note - Hemodialysis
-
Date of Service: September 29, 2023
Duration: 30 minutes and 3 hours
Potassium Bath: 3
Calcium Bath: 2.5
Opti-Dialyzer: 160
Ultrafiltration: Other (2kg)
Blood Flow: 400
Dialysate Flow: 600
Heparin: none
EPO: 10K
--- NOTE | 2023-09-29 11:01 | W.PN.HOSP.TC ---
Today's Communication/Plan
-
Discharge
Assessment / Plan
Assessment / Plan
Gen-AAOx3, NAD, obese
HEENT-NC, AT, anicteric, clear oral mm
Neck-supple
CV-reg, no M, +S1/S2
Lungs-clear B/L
Abd-soft, NT, ND
Ext-no edema
Musculoskeletal-no cyanosis, clubbing
Skin-warm and dry
Neuro-grossly non-focal
Psych-calm, cooperative
Septic shock - due to infected tunnelled dialysis catheter which was removed.�Blood culture positive for MSSA. Repeat culture negative. Continue cefazolin per ID.
Lumbar pain
- MRI showing: SEVERE ASYMMETRIC LEFT-SIDED FACET JOINT ARTHROSIS at L4/L5 with a large amount of surrounding enhancing bone marrow and soft tissue edema. Diagnostic possibilities are (1) severe osteoarthritis or (2) septic arthritis given the
history of fever.
- prn pain control
- d/w Spine team and IR. No appreciable fluid to biopsy/collect. Will monitor clinically and treat with IV abx. Pain is overall improving but if it worsens, will repeat MRI 1 week from prior MRI.
Troponin elevation - likely non-TX troponin elevation in the setting of sepsis, ESRD.� No chest pain. Troponin was also elevated during his recent hospitalization. Troponin has peaked.
ESRD - on dialysis Thursday outpatient. Nephrology following. They recommend continuing Lasix. s/p temp HD Line placed 09/21. HD schedule per Nephrology
Hyponatremia -resolved.
Hypokalemia - replete prn
Paroxysmal atrial fibrillation - continue amiodarone, Eliquis.
Hypothyroidism - continue Synthroid.
Chronic heart failure preserved EF - stable.
Chronic peripheral neuropathy
Chronic normocytic anemia - hemoglobin stable.
DENISSE
Morbid obesity due to excess calories
Peripheral neuropathy
- continue Gabapentin, max dose 300/daily.
DVT ppx: Eliquis
Code: Full
Dispo -medically stable for discharge today after dialysis. Continue antibiotics IV on discharge per ID recommendation. Outpatient follow-up.
32 minutes spent in discharge process.
Anticipated Discharge: Today
Subjective/Interval History
-
Date of Service: September 29, 2023
Patient seen and examined. Getting dialysis currently. Eager to be discharged later today. No complaints.
Objective Data
-
Labs:
Laboratory Results
09/29/23
08:23
Hgb 9.9 L
Hct 30.1 L
Sodium 135
Potassium 3.2 L
Chloride 108 H
Carbon Dioxide 18 L
BUN 45 H
Creatinine 3.3 H
Glucose 178 H
Calcium 6.8 L* D
Vital Signs:
Vital Signs
Temp Pulse Resp BP Pulse Ox
97.3 F 65 12 134/73 98
09/29/23 07:55 09/29/23 07:55 09/29/23 07:55 09/29/23 07:55 09/29/23 08:00
I&O
09/28/23 09/29/23 09/30/23
06:59 06:59 06:59
Intake Total 1920 / 1920 1130 / 1130
Output Total 700 / 700 1850 / 1850
Balance 1220 / 1220 -720 / -720
Review of Systems
-
History Source: Patient
All other systems: Reviewed and negative
--- NOTE | 2023-09-29 11:07 | W.DS.TRANS ---
DC Summary - Inspector And Tester
-
Discharge Instructions:
Sleep Apnea Risk Intermediate
Discharge Diagnosis/Procedures Septic shock, troponin elevation, electrolyte
abnormalities
Diet Restrict fluids to 48 oz,2 Gram Sodium,Other
diet
Additional Diets 4 g potassium
Activity As tolerated,With assistance
Driving Restrictions As prior to admission
Bathing Restrictions None
Other Services VN
Instructions:
Stand-Alone Forms:
Changes to Home Medications: No
Discharge Medications:
DC Medications w/original date entered in [employer]
apixaban 5 mg tablet (Eliquis) 5 mg PO BID Blood clot prevention/tx/AFib 06/07/21
albuterol sulfate 2.5 mg/3 mL (0.083 %) solution for nebulization 2.5 mg (3 mL) inhalation R Q4HPRN PRN Wheezing and SOB #0 mL 09/01/23
lidocaine 4 % topical cream (LMX 4) 1 applic topical TIDPRN PRN burning around Martins #0 grams 09/01/23
midodrine 5 mg tablet 5 mg PO Q4HPRN PRN SBP<110 #0 tabs 09/01/23
nicotine (polacrilex) 2 mg gum 4 mg PO Q4HPRN PRN nicotine withrawal #0 ea 09/01/23
melatonin 3 mg tablet 3 mg PO HSPRN PRN insomnia 09/17/23
polyvinyl alcohol-povidone (PF) 1.4 %-0.6 % eye drops in a dropperette (Refresh Classic (PF)) 1 drops BOTH EYES Q6HPRN PRN dryness and redness 09/17/23
amiodarone 200 mg tablet (Pacerone) 200 mg PO DAILY AFib 09/18/23
levothyroxine 50 mcg tablet 50 mcg PO DAILY@0700 Thyroid 09/18/23
cefazolin 10 gram solution for injection 2 g IV Q24H #0 ea 09/29/23
furosemide 80 mg tablet 80 mg PO DAILY #30 tabs 09/29/23
gabapentin 100 mg capsule 100 mg PO TID #90 caps 09/29/23
Home Medication Changes
Pending Results: No
[2023-09-29] MEDS: HEPARIN 4300 UNITS INTRACATH (11:23)
--- NOTE | 2023-09-29 11:37 | CM ---
Patient has been medically cleared for discharge to [facility] with [facility]. He will begin HD -- schedule with [facility]. Patient has been given [facility] address, phone # and instructions. To arrive at 5:00 am on 09/30/22. This CM
notified Lauryn at [facility] of patient discharge.
--- NOTE | 2023-09-29 11:56 | W.DS.TRANS ---
DC Summary - In Process Inspector
-
Discharge Instructions:
Sleep Apnea Risk Intermediate
Discharge Diagnosis/Procedures Septic shock, troponin elevation, electrolyte
abnormalities
Diet Restrict fluids to 48 oz,2 Gram Sodium,Other
diet
Additional Diets 4 g potassium
Activity As tolerated,With assistance
Driving Restrictions As prior to admission
Bathing Restrictions None
Other Services VN
Instructions:
Stand-Alone Forms:
Changes to Home Medications: No
Discharge Medications:
DC Medications w/original date entered in [employer]
apixaban 5 mg tablet (Eliquis) 5 mg PO BID Blood clot prevention/tx/AFib 06/07/21
albuterol sulfate 2.5 mg/3 mL (0.083 %) solution for nebulization 2.5 mg (3 mL) inhalation R Q4HPRN PRN Wheezing and SOB #0 mL 09/01/23
lidocaine 4 % topical cream (LMX 4) 1 applic topical TIDPRN PRN burning around Martins #0 grams 09/01/23
midodrine 5 mg tablet 5 mg PO Q4HPRN PRN SBP<110 #0 tabs 09/01/23
nicotine (polacrilex) 2 mg gum 4 mg PO Q4HPRN PRN nicotine withrawal #0 ea 09/01/23
melatonin 3 mg tablet 3 mg PO HSPRN PRN insomnia 09/17/23
polyvinyl alcohol-povidone (PF) 1.4 %-0.6 % eye drops in a dropperette (Refresh Classic (PF)) 1 drops BOTH EYES Q6HPRN PRN dryness and redness 09/17/23
amiodarone 200 mg tablet (Pacerone) 200 mg PO DAILY AFib 09/18/23
levothyroxine 50 mcg tablet 50 mcg PO DAILY@0700 Thyroid 09/18/23
cefazolin 2 gram/100 mL in 0.9 % sodium chloride intravenous solution 100 ml IV MOWEFR #1,200 mL 09/29/23
furosemide 80 mg tablet 80 mg PO DAILY #30 tabs 09/29/23
gabapentin 100 mg capsule 100 mg PO TID #90 caps 09/29/23
Home Medication Changes
Pending Results: No
[2023-09-29] MEDS: FLUZONE HIGH-DOSE QUAD 2023-24 0.699999999999999956 ML IM (12:03)
[2023-09-29] MEDS: ANCEF 10 IV (12:07)
== END 2023-09-29 13:19 | disposition home health service (06) | DRG 314 ==
LOC: 2 NORTH 13:04
PROVIDERS: Internal Medicine; Nurse Practitioner Family; Radiology Diagnostic Radiology; Radiology Vascular & Interventional Radiology; Specialist; ADMITTING PHYSICIAN Hospitalist; CONSULT PHYSICIAN Internal Medicine; CONSULT PHYSICIAN Internal Medicine Critical Care Medicine; CONSULT PHYSICIAN Internal Medicine Infectious Disease; CONSULT PHYSICIAN Orthopaedic Surgery Orthopaedic Surgery of the Spine; EMERGENCY PHYSICIAN Emergency Medicine; FAMILY PHYSICIAN Internal Medicine
PROC: 5A1D70Z Performance of Urinary Filtration, Intermittent, Less than 6 Hours Per Day (ICD-10-PCS; 2023-09-18)
PROC: 0JPVXXZ Removal of Tunneled Vascular Access Device from Upper Extremity Subcutaneous Tissue and Fascia, External Approach (ICD-10-PCS; 2023-09-19)
PROC: B5141ZA Fluoroscopy of Left Jugular Veins using Low Osmolar Contrast, Guidance (ICD-10-PCS; 2023-09-21)
PROC: 05HN33Z Insertion of Infusion Device into Left Internal Jugular Vein, Percutaneous Approach (ICD-10-PCS; 2023-09-21)
PROC: 0JH63XZ Insertion of Tunneled Vascular Access Device into Chest Subcutaneous Tissue and Fascia, Percutaneous Approach (ICD-10-PCS; 2023-09-28)
PROC: 05HM33Z Insertion of Infusion Device into Right Internal Jugular Vein, Percutaneous Approach (ICD-10-PCS; 2023-09-28)
PROC: B5131ZA Fluoroscopy of Right Jugular Veins using Low Osmolar Contrast, Guidance (ICD-10-PCS; 2023-09-28)
PROC: 3E02340 Introduction of Influenza Vaccine into Muscle, Percutaneous Approach (ICD-10-PCS; 2023-09-29)
DX: T80.211A Bloodstream infection due to central venous catheter, initial encounter (principal); A41.2 Sepsis due to unspecified staphylococcus; N18.6 End stage renal disease; R65.21 Severe sepsis with septic shock; J81.0 Acute pulmonary edema; I50.32 Chronic diastolic (congestive) heart failure; I48.92 Unspecified atrial flutter; E87.20 Acidosis, unspecified; E87.1 Hypo-osmolality and hyponatremia; I5A Non-ischemic myocardial injury (non-traumatic); N17.9 Acute kidney failure, unspecified; N39.0 Urinary tract infection, site not specified; I13.2 Hypertensive heart and chronic kidney disease with heart failure and with stage 5 chronic kidney disease, or end stage renal disease; G47.33 Obstructive sleep apnea (adult) (pediatric); R09.02 Hypoxemia; I48.0 Paroxysmal atrial fibrillation; G62.9 Polyneuropathy, unspecified; J30.81 Allergic rhinitis due to animal (cat) (dog) hair and dander; M10.9 Gout, unspecified; E66.01 Morbid (severe) obesity due to excess calories; E03.9 Hypothyroidism, unspecified; G89.29 Other chronic pain; M47.819 Spondylosis without myelopathy or radiculopathy, site unspecified; M43.16 Spondylolisthesis, lumbar region; E87.6 Hypokalemia; Y84.8 Other medical procedures as the cause of abnormal reaction of the patient, or of later complication, without mention of misadventure at the time of the procedure; Z23 Encounter for immunization; Z87.891 Personal history of nicotine dependence; Z98.84 Bariatric surgery status; Z91.158 Patient's noncompliance with renal dialysis for other reason; Z79.01 Long term (current) use of anticoagulants; Z99.2 Dependence on renal dialysis; Z79.890 Hormone replacement therapy; Z68.39 Body mass index [BMI] 39.0-39.9, adult; Z88.1 Allergy status to other antibiotic agents; Z11.52 Encounter for screening for COVID-19
CPT/HCPCS: 36556; 36558; 36589; 71046; 72158; 76937; 77001; 80048; 80053; 80202; 81003; 81015; 83605; 83735; 83880; 84484; 85014; 85018; 85025; 85027; 85610; 85652; 85730; 86140; 86706; 87040; 87070; 87077; 87084; 87086; 87147; 87186; 87205; 87340; 87502; 87811; 90662; 93005; 93306; 96361; 96365; 96375; 97116; 97162; 97166; 97530; 97535; 99152; 99153; 99284; 99291; A9585; C1750; C1752; G0008; G0257; J0885; P9047; Q5106

== ENCOUNTER → 2024-01-12 10:03 | Outpatient (REF) | payer MEDICARE, OTHER, SELFPAY | LOC: RAD 10:03 | PROVIDERS: ATTENDING PHYSICIAN Surgery Vascular Surgery; FAMILY PHYSICIAN Family Medicine | DX: Z01.818 Encounter for other preprocedural examination (principal); N18.6 End stage renal disease | CPT/HCPCS: 93985 ==

== ENCOUNTER 2024-01-14 07:43 | Day surgery (SDC) | payer MEDICARE, OTHER, SELFPAY ==
[2024-01-14] VITALS (11 sets, daily range): BP systolic 104–144; BP diastolic 57–82; BMI 42.6
[2024-01-14] MEDS: PERIDEX 0.12% ORAL RINSE 15 ML PO (08:23)
[2024-01-14] MEDS: NSS 500 IV (08:23)
[2024-01-14] MEDS: BACTROBAN NASAL 1 GRAM NASAL (08:24)
[2024-01-14 08:41] LABS: Hematocrit 38.6 % (39.0-52.0); Hemoglobin 12.4 g/dL (13.0-18.0); INR 1.15; Mean Corp Hgb Conc. 32.1 g/dL (33.0-37.0); Mean Corpuscular Hgb 27.2 pg (27.0-31.0); Mean Corpuscular Volume 84.6 fL (80.0-94.0); Mean Platelet Volume 8.9 fL (7.4-10.4); PT 14.8 Sec (11.4-14.6); Platelet Count 195 10^3/uL (130-400); Red Blood Cell Count 4.56 10^6/uL (4.70-6.10); Red Cell Dist. Width 17.2 % (11.5-14.5); White Blood Cell Count 8.1 10^3/uL (4.8-10.8)
[2024-01-14 08:42] LABS: APTT 37.5 Sec (23.4-35.0)
[2024-01-14 08:50] LABS: Blood Urea Nitrogen 33 mg/dl (9-20); Calcium 8.7 mg/dl (8.4-10.2); Carbon Dioxide 30 mmol/L (22-30); Chloride 96 mmol/L (98-107); Estimated Creatinine Clearance 24 ml/min; Glucose 110 mg/dl (70-99); Potassium 3.6 mmol/L (3.5-5.1); Sodium 137 mmol/L (135-145); eGFR 16.31
--- NOTE | 2024-01-14 09:01 | PTCARENOTE ---
Dr Peraza at pt bedside speaking to pt and pt's .
--- NOTE | 2024-01-14 09:11 | W.SUR.PREOP ---
Pre-Operative Surgical Note
-
I have examined this patient prior to the performance of the scheduled procedure.
The patient's condition is unchanged from the time of the current History and
Physical and the patient is able to undergo the scheduled procedure.
The only changes that the patient noted yesterday at the end of dialysis that difficulty pushing through the catheter to return the blood back (one of the ports seemed blocked) and they noted return of some clot. Discussed with patient that once he
is asleep we will try to flush it and or instill localized tPA to see if we can get it to open. If not I discussed and consented him for replacement (or placement of new) of tunneled dialysis catheter upon completion of fistula case. Discussed
with patient that procedure. Discussed risk including but not limited to bleeding/infection/pneumothorax. He understands all wishes to proceed.
[2024-01-14] MEDS: PACERONE 200 MG PO (09:15)
--- NOTE | 2024-01-14 11:00 | W.SUR.POST ---
Surgical Immediate Post Op
Note
Pre Op Diagnosis: End-stage renal disease
Post Op Diagnosis: Same
Procedure Performed: Left upper extremity brachiocephalic AV fistula creation
Primary Surgeon: Stu
Secondary Surgeons: Marek MANZO
Anesthesia: LMA
Estimated Blood Loss: 5cc
Fluids: See anesthesia flowsheet
Drains/Shunts: None
Specimens/Cultures: None
Doppler/Duplex/Angio (Y/N): Y
Complications: None
Operative Findings: + Thrill
[2024-01-14] MEDS: DILAUDID 0.5 MG IV (11:29)
[2024-01-14] MEDS: ROXICODONE 5 MG PO (12:20)
--- NOTE | 2024-01-14 16:30 | OR.RPT ---
Operative Report
Operative Report
PROCEDURE DATE: 01/14/2024
Preoperative diagnosis: End-stage renal disease on hemodialysis
Postoperative diagnosis: Same
Procedure: Left upper extremity brachiocephalic arteriovenous fistula creation
Surgeon: Stu
Marine Safety Officer: LUIS Jara, required for all aspects of procedure including assistance with traction/countertraction, following of suture line, assistance with closure.
Complications: None
Anesthesia: General
Indications for procedure:
End-stage renal disease on hemodialysis. Required more permanent dialysis access (tunneled dialysis catheter in place). Risk/benefits/alternatives of fistula/graft creation were all fully discussed. Patient understood all wish to proceed. Of
note patient had inform me about potential clogging of his tunneled dialysis catheter. Therefore I discussed accessing that under sterile technique upon completion of the fistula procedure and if needed performing exchange/revision of the tunneled
dialysis catheter.
Description of procedure:
Patient was identified brought to the operating room placed on the table in supine position. After the initiation of anesthesia, I used an ultrasound in the operating room to assess and map the upper arm veins myself. The left upper extremity
cephalic vein in the upper arm seem more suitable than the basilic actually, the basilic was very tortuous. The upper arm cephalic vein was somewhat tortuous in its more proximal outflow course, but more centrally was straight. Near the
antecubital fossa it was of suitable size, and the tortuous segment was slightly smaller but not unreasonable to use. I looked at the right side and it did not look much better. Therefore I felt it was worth an attempt at using the upper arm
cephalic vein.
After the adequate administration of anesthesia and perioperative antibiotics he was prepped and draped in the standard surgical fashion. A standard preoperative timeout was undertaken and everybody was in agreement the plan. A transverse incision
was made in the proximal volar aspect of the forearm just distal to the antecubital fossa. This was carried through skin subcutaneous tissue. The antecubital extension of the cephalic vein was identified and carefully dissected away from
surrounding structures and great care to avoid any injury to structures. There was a deeper branch as there often is that was slightly larger but had a couple branches coming off it as well. This was ligated between silk ties and divided. In
addition there was another confluent branch that seem to lead towards the basilic vein, and this was also ligated between silk ties and divided. As such I was able to mobilize a suitable length of cephalic vein. Once I had done this I then
deepened my dissection in the medial aspect of the incision site through the fascial layer. The brachial artery was carefully identified and carefully dissected away from surrounding structures take great care to avoid injury to structures. I
passed a vessel loop around approximately. Distally I identified the brachial bifurcation and both radial and ulnar branches were controlled with Vesseloops after careful circumferential dissection. Next I gave the patient 3000 units of
intravenous heparin. I then ligated the cephalic vein distally in my field with a silk tie and a clip. I then transected it. I distended under heparinized saline. It distended very well. I marked the anterior surface under distention to avoid
any kinking or twisting. The vein was of suitable size here in the antecubital fossa, but to be sure I ran a dilator. I was very careful with the dilator, however, as I had noted significant tortuosity on the ultrasound prior. Therefore I gently
passed it and passed without difficulty for several centimeters. But then I did encounter a little bit of resistance. But it did not feel like resistance due to stenosis (that has a typical different feel), and I rather felt it was due to
tortuosity I did not wish to push through that and risking injuring the vein. Therefore, I felt that it was still worth an attempt to use this vein.
Next I tightened my doubly Vesseloops on the artery proximally distally. I then made an arteriotomy on the distal brachial artery with an 11 blade and extended it using a Ho scissor. I spatulated the cephalic vein and sewed an end to side
anastomosis using a running 6-0 Prolene suture. Prior to completing and tying down my suture line I backbled and forebled the [place] artery. Next I released my bulldog clamp on the vein and then released my Vesseloops on the artery. There was an
excellent thrill in the fistula. There was a palpable pulse at the wrist in the radial artery. At this point I was very satisfied. I irrigated. I achieved and confirmed full hemostasis. We then closed in layers using 3-0 Vicryl deep dermal
layer followed by 4-0 Monocryl subcuticular stitch. Dermabond was applied. The patient tolerated the procedure well.
== END 2024-01-14 13:30 | disposition home or self-care (01) ==
LOC: CATH 07:43
PROVIDERS: ATTENDING PHYSICIAN Surgery Vascular Surgery; FAMILY PHYSICIAN Family Medicine; OTHER PHYSICIAN Internal Medicine Interventional Cardiology
DX: N18.6 End stage renal disease (principal); Z99.2 Dependence on renal dialysis; I50.32 Chronic diastolic (congestive) heart failure; I48.91 Unspecified atrial fibrillation; Z87.891 Personal history of nicotine dependence; Z79.01 Long term (current) use of anticoagulants
CPT/HCPCS: 36821; 80048; 85027; 85610; 85730; 86850; 86900; 86901

== ENCOUNTER → 2024-02-18 10:57 | Outpatient (REF) | payer MEDICARE, OTHER, SELFPAY | LOC: RAD 10:57 | PROVIDERS: ATTENDING PHYSICIAN Registered Nurse | DX: I77.0 Arteriovenous fistula, acquired (principal) | CPT/HCPCS: 93990 ==

== ENCOUNTER → 2024-03-22 11:04 | Outpatient (REF) | payer MEDICARE, OTHER, SELFPAY | LOC: RAD 11:04 | PROVIDERS: ATTENDING PHYSICIAN Surgery Vascular Surgery; FAMILY PHYSICIAN Family Medicine | DX: I77.0 Arteriovenous fistula, acquired (principal) | CPT/HCPCS: 93990 ==

== ENCOUNTER 2024-04-07 08:13 | Day surgery (SDC) | payer MEDICARE, OTHER, SELFPAY ==
[2024-04-07] VITALS (10 sets, daily range): BP systolic 135–165; BP diastolic 64–96; BMI 41.7
[2024-04-07 09:02] LABS: Hematocrit 36.5 % (39.0-52.0); Hemoglobin 12.2 g/dL (13.0-18.0); Mean Corp Hgb Conc. 33.4 g/dL (33.0-37.0); Mean Corpuscular Hgb 30.3 pg (27.0-31.0); Mean Corpuscular Volume 90.8 fL (80.0-94.0); Mean Platelet Volume 8.8 fL (7.4-10.4); Platelet Count 169 10^3/uL (130-400); Red Blood Cell Count 4.02 10^6/uL (4.70-6.10); Red Cell Dist. Width 15.9 % (11.5-14.5); White Blood Cell Count 6.6 10^3/uL (4.8-10.8)
[2024-04-07 09:16] LABS: Blood Urea Nitrogen 38 mg/dl (9-20); Calcium 8.7 mg/dl (8.4-10.2); Carbon Dioxide 28 mmol/L (22-30); Chloride 96 mmol/L (98-107); Estimated Creatinine Clearance 26 ml/min; Glucose 103 mg/dl (70-99); Potassium 4.2 mmol/L (3.5-5.1); Sodium 134 mmol/L (135-145); eGFR 17.89
[2024-04-07 09:19] LABS: INR 1.07; PT 13.9 Sec (11.4-14.6)
[2024-04-07 09:20] LABS: APTT 35.3 Sec (23.4-35.0)
--- NOTE | 2024-04-07 09:49 | W.SUR.PREOP ---
Pre-Operative Surgical Note
-
I have examined this patient prior to the performance of the scheduled procedure.
The patient's condition is unchanged from the time of the current History and
Physical and the patient is able to undergo the scheduled procedure.
[2024-04-07] MEDS: BACTROBAN 2% OINTMENT 2 APPLIC NASAL (09:58)
[2024-04-07] MEDS: PERIDEX 0.12% ORAL RINSE 15 ML PO (09:58)
--- NOTE | 2024-04-07 12:52 | OR.RPT ---
Operative Report
Operative Report
PROCEDURE DATE: 04/07/2024
Preoperative diagnosis: End-stage renal disease on hemodialysis.
Postoperative diagnosis: Same
Procedure: Left upper extremity upper arm brachial-axillary graft placement.
Surgeon: Stu
Operating Room Technician: LUIS Jara, required for all aspects of procedure including assistance with traction/countertraction, following a suture line, assistance with closure.
Complications: None
Anesthesia: General
Indications for procedure:
End-stage renal disease on hemodialysis. Brachiocephalic AV fistula was not maturing well, and was noted to have a branching a few centimeters beyond the outflow/anastomosis. Branching resulted in 2 small branches. The more proximal upper arm
cephalic vein by ultrasound vein mapping had suggested that it was patent. However I was not sure, and therefore brought patient for likely revision with graft. Risk/benefits/alternatives were all fully discussed. He understood all wish to
proceed.
Description of procedure:
Patient was identified brought to the operating room placed on the table in supine position. Once in the operating room, I used an ultrasound to evaluate the veins. The anastomosis of the brachiocephalic arteriovenous fistula. Patent. About 3 or
4 cm beyond the anastomosis, the vein branch. I followed both branches and they both were circuitous essentially leading to no large or reasonable size cephalic vein outflow in the upper arm. Therefore, I felt that an AV graft would be best here.
His deep vein in the vicinity of the axilla was reasonable. After the adequate administration of anesthesia he was prepped and draped in the standard surgical fashion. A standard preoperative timeout was undertaken and everybody was in agreement
the plan. A longitudinal incision was made in the distal upper arm just proximal to the antecubital fossa overlying the patent outflow vein. I carried this through the skin subcutaneous tissue and then identified the cephalic vein outflow. It was
nicely enlarged here. I dissected it for a few centimeters and passed a vessel loop around it after careful circumferential dissection. Next, I made a longitudinal incision in the medial very proximal upper arm near the axilla. This is carried
through skin subcutaneous tissue and then through the fascial layer. I identified the brachial artery and then vein. I carefully dissected the vein away from surrounding structures and great care to avoid any injury to structures. Vesseloops
passed around it proximally and distally as well as around a branch. Now I created a subcutaneous tunnel between the 2 sites using a Brie tunneler. I then passed a 4mm x 7mm [place] Propaten graft through the tunnel. The 7 mm and was cut so that
the entirety was 7 mm. I now give the patient fourth adhered to maturing his heparin. I then placed a clamp on the proximal outflow portion of the cephalic vein identified in the distal upper arm. I then ligated the distal portion and then
transected it. It was ligated distally with heavy silk ties. Now that I had a transected, I sewed an end-to-end anastomosis to the graft using running [place] CV 6 suture. I completed and tied down my suture line. Next I released my clamp on the
cephalic vein. The anastomosis here appeared to be nice and hemostatic. At this point I then placed a clamp on the graft. I then tightened my doubly Vesseloops on the vein proximally and distally. I then made a venotomy with an 11 blade and
extended it using a Ho scissor. I then trimmed and beveled the distal aspect of the graft and sewed an end-to-side anastomosis to the vein using a running [place] CV 6 suture. Prior to completing and tying down my suture line I backbled the [place]
artery and flushed out the graft. I then completed and tied down my suture line. I then released flow in the [place] vein as well as in the graft by releasing the graft clamp. There was a small bleeding point on the more lateral aspect of the vein
which initially appeared to be from the suture line, but then I could see there is a small rent in the vein. This was repaired primarily with [place] CV 6 [id number]-eb-cnaok type suture. Hemostasis was now fully achieved. There is excellent flow
through the graft and an excellent thrill in the vein proximally and distally. At this point I was very satisfied. I irrigated. I confirmed full hemostasis. We then closed in layers using 3-0 Vicryl followed by 4-0 Monocryl subcuticular stitch.
Dermabond was applied. The patient tolerated the procedure well. As noted he had an excellent thrill in the graft and in the vein as well as a palpable radial pulse at the wrist upon completion.
== END 2024-04-07 15:00 | disposition home or self-care (01) ==
LOC: CATH 08:13
PROVIDERS: ATTENDING PHYSICIAN Surgery Vascular Surgery; FAMILY PHYSICIAN Family Medicine; OTHER PHYSICIAN Internal Medicine Interventional Cardiology
DX: T82.898A Other specified complication of vascular prosthetic devices, implants and grafts, initial encounter (principal); Y83.2 Surgical operation with anastomosis, bypass or graft as the cause of abnormal reaction of the patient, or of later complication, without mention of misadventure at the time of the procedure; N18.6 End stage renal disease; Z99.2 Dependence on renal dialysis; I49.5 Sick sinus syndrome; G47.33 Obstructive sleep apnea (adult) (pediatric); I13.2 Hypertensive heart and chronic kidney disease with heart failure and with stage 5 chronic kidney disease, or end stage renal disease; I50.32 Chronic diastolic (congestive) heart failure
CPT/HCPCS: 36832; 80048; 85027; 85610; 85730; 86850; 86900; 86901

== ENCOUNTER → 2024-05-05 12:39 | Outpatient (REF) | payer MEDICARE, OTHER, SELFPAY | LOC: DHVS 12:39 | PROVIDERS: ATTENDING PHYSICIAN Registered Nurse | DX: N18.6 End stage renal disease (principal) | CPT/HCPCS: 93990 ==

== ENCOUNTER → 2024-06-23 13:51 | Outpatient (REF) | payer MEDICARE, OTHER, SELFPAY | LOC: RAD 13:51 | PROVIDERS: ATTENDING PHYSICIAN Surgery Vascular Surgery | DX: I77.0 Arteriovenous fistula, acquired (principal) | CPT/HCPCS: 93990 ==

== ENCOUNTER 2024-07-19 05:59 | Day surgery (SDC) | payer MEDICARE, OTHER, SELFPAY ==
[2024-07-12 10:16] VITALS: BMI 44.2
[2024-07-19] VITALS (13 sets, daily range): BP systolic 117–145; BP diastolic 60–89
[2024-07-19 09:00] LABS: ACT-LR - POC 368 Seconds (116-155)
--- NOTE | 2024-07-19 09:34 | ITS.CL.ABL ---
[employer] - Ablation
Ablation
Procedure Report:
ELECTROPHYSIOLOGY ABLATION STUDY
�
DATE:: July 19, 2024�����������������������������REFERRING: Dr. Brigida Anderson
�
INDICATION: Persistent supraventricular tachycardia in the form of atrial fibrillation.� Refractory to amiodarone
�
HISTORY: See H and P.��As above, prior 28 mm cryoballoon pulmonary vein isolation
�
ANTIARRHYTHMIC DRUG: Amiodarone
�
PRE-PROCEDURE MANOHAR: No intracardiac thrombus
�
PRESENTING RHYTHM: Atrial fibrillation
�
'TIME-OUT':��called and confirmed.
�
SEDATION/ANESTHESIA:��provided via the anesthesia department using general anesthesia (LMA).
�
INTRAVENOUS/ARTERIAL ACCESS:
Right femoral venous - 10 Fr,
Left femoral venous - 8 Fr, 6 Fr
[id number] suture to bilateral venous access sites
Ultrasound guidance for bilateral femoral vein access was utilized by me to obtain access with demonstration of normal anatomy
CHADS-VASC Score:
�
HAS-Bled Score
�
PROCEDURE:
1.��A decapolar CS catheter was placed within the CS for mapping and pacing.��This was also used as the reference catheter for the 3-D map.
�
2. The intracardiac ultrasound catheter was positioned in the RA to identify the FO for targeting of transseptal puncture, assist��in identification of the pulmonary vein ostia, monitoring pre and post ablation pulmonary vein flow velocities,
monitoring for 'bubble' formation during RF application as a sign of thermal injury,��and to monitor for pericardial effusion during mapping and ablation procedure.���Left atrial size, LV ejection fraction, and pulmonary vein flows were monitored
pre and post ablation procedure. The other valves were inspected and found to be free of significant regurgitation or stenosis.
�
3.��Half of the calculated heparin bolus was administered prior to the first transeptal puncture.��Transseptal puncture was performed to diagnose RA and LA pressure so that safety of LA mapping and ablation could be further assessed, and to access
the left atrium and pulmonary veins for mapping and ablation.��This entailed advancing an 16.8 Cypriot sheath, RF wire with dilator into the superior vena cava and withdrawing both (monitoring intracardiac ultrasound, fluoroscopy and tip pressure)
with the tip oriented toward the atrial septum.��The fossa ovalis was engaged (indicated by sudden displacement of the sheath tip as well as tenting of the fossa seen on intracardiac ultrasound).��Left atrial access required a pass with the
[place] needle extended.��Left atrial catheter position was confirmed by pressure monitoring (RA mean pressure 8 mm Hg and LA mean presure 12 mm Hg), LA saturation (99%),��as well as fluoroscopy.��The sheath was advanced over the dilator and
positioned in the left atrium.��This procedure was repeated for the Agilis sheath.��The remainder of the calculated heparin bolus was administered and heparin was
infused to maintain ACT at 300 -350 seconds throughout the case.
�
4.��RA pacing was performed via the proximal decapolar poles and LA pacing was performed via the distal decapolr poles.
�
5. A quadrapolar catheter was first positioned at the His position for His Bundle recording which was tagged via the 3-D Navex sytem, and then passed to the RVA for RV pacing and recording.
�
6. The left pulmonary veins were isolated anteriorly and the right pulmonary veins were isolated in wide [place] fashion with the multipolar and PFA placed in each of the LIPV, LSPV, RSPV and the RIPV.��
�
7.��Next, a 3-D map was created using Navex.���A 3-D reconstructed CT image was compared to the 3-D Navex map to assist in anatomic interpretation, mapping and ablation.��The CT image and the NavX image were fused.
�
8. A total of 38 lesions were given. Pulmonary vein lesions were given and all of and basket post to the left superior and left inferior pulmonary veins and flower post to the posterior wall, interatrial septum, and left atrial floor. Multipolar
catheter demonstrated entrance and exit block in sinus rhythm after he 300 J cardioversion in all 4 pulmonary veins and the left atrial posterior wall. The patient was noninducible for other tachyarrhythmia. The patient initially converted to
junctional rhythm with resumption of sinus rhythm after a few minutes in the 50s.
9. Normal sinus node and AV vaughn function noted.
�
TOTAL FLOURO TIME: 12.6 minutes 132 mGy
�
TOTAL RF DURATION: 0 minutes
�
REVERSAL OF HEPARIN: 35 mg of protamine, slow IV administration
�
COMPLICATIONS:
None
Intracardiac US shows no pericardial effusion post ablation.
�
SUMMARY:��
Complex left atrial mapping and ablation.
Pulmonary vein lesions to the left pulmonary veins and isolation of left atrial posterior wall as above.
RECOMMENDATIONS:
1. Ambulation 4 hours consider same-day discharge
2. Resume anticoagulation
3.��Discontinue amiodarone in 1 month
4.��Outpatient follow-up with Dr. Anderson
�
Copy to: Dr. Brigida Anderson
�
[2024-07-19] MEDS: ANESTHETIC LOZENGE 1 LOZENGE PO (14:08)
--- NOTE | 2024-07-19 14:21 | W.PN.UPDATE ---
Update Note
Progress Note Update
69 yo WM s/p PVI (same day). He denies cp, sob, jose diet, b/l groins c/d/i, soft, EKG SR 1deg AVB. He will take his Eliquis at home tonight, Continue amiodarone 200mg daily then stop after 1 month. Activity restrictions reviewed. He will f/u
[facility] in 2 mo. He is for d/c home after 230p if groins stable.
SUMMARY:��
Complex left atrial mapping and ablation.
Pulmonary vein lesions to the left pulmonary veins and isolation of left atrial posterior wall as above.
RECOMMENDATIONS:
1. Ambulation 4 hours consider same-day discharge
2. Resume anticoagulation
3.��Discontinue amiodarone in 1 month
4.��Outpatient follow-up with Dr. Anderson
�
Copy to: Dr. Brigida Anderson
== END 2024-07-19 15:15 | disposition home or self-care (01) ==
LOC: CATH 05:59
PROVIDERS: ATTENDING PHYSICIAN Internal Medicine Cardiovascular Disease; FAMILY PHYSICIAN Family Medicine
DX: I48.19 Other persistent atrial fibrillation (principal); I47.10 Supraventricular tachycardia, unspecified; I48.92 Unspecified atrial flutter; I13.2 Hypertensive heart and chronic kidney disease with heart failure and with stage 5 chronic kidney disease, or end stage renal disease; N18.6 End stage renal disease; Z99.2 Dependence on renal dialysis; I50.32 Chronic diastolic (congestive) heart failure; I45.10 Unspecified right bundle-branch block; I49.5 Sick sinus syndrome; E78.5 Hyperlipidemia, unspecified; E03.9 Hypothyroidism, unspecified; G47.33 Obstructive sleep apnea (adult) (pediatric); Z87.891 Personal history of nicotine dependence; E66.01 Morbid (severe) obesity due to excess calories; Z68.41 Body mass index [BMI] 40.0-44.9, adult; Z98.84 Bariatric surgery status; Z79.01 Long term (current) use of anticoagulants
CPT/HCPCS: C1732; C1894; C1730; C1892; C1759; 85347; 93005; 93656; 93657; C1733; C1766

== ENCOUNTER → 2024-08-02 09:13 | Outpatient (REF) | payer MEDICARE, OTHER, SELFPAY ==
[2024-08-02 09:25] VITALS: BP 148/73; BP_SYST 65
[2024-08-02 09:30] VITALS: BP 132/74
--- NOTE | 2024-08-02 09:49 | PTCARENOTE ---
HD catheter removed by IRAD Tech. Dressing applied. Sitting up on stretcher
[2024-08-02 10:05] VITALS: BP 132/74
== END ==
LOC: RADI 09:13
PROVIDERS: ATTENDING PHYSICIAN Internal Medicine Nephrology; FAMILY PHYSICIAN Family Medicine
DX: Z49.01 Encounter for fitting and adjustment of extracorporeal dialysis catheter (principal); N18.6 End stage renal disease
CPT/HCPCS: 36589

== ENCOUNTER → 2024-09-06 12:48 | Outpatient (REF) | payer MEDICARE, OTHER, SELFPAY | LOC: RAD 12:48 | PROVIDERS: ATTENDING PHYSICIAN Surgery Vascular Surgery; FAMILY PHYSICIAN Family Medicine | DX: I77.0 Arteriovenous fistula, acquired (principal) | CPT/HCPCS: 93990 ==

== ENCOUNTER 2024-11-25 22:15 | Inpatient (IN) | payer MEDICARE, OTHER, SELFPAY ==
[2024-11-25 12:19] VITALS: BP 108/68
--- NOTE | 2024-11-25 17:01 | ED.GENMED ---
History of Present Illness
General
Chief Complaint: Vascular Access Problem
Source: patient
Exam Limitations: none
Time Seen by Provider: 11/25/24 16:46
Nursing documentation reviewed up to this point in time: agreed with
History of Present Illness
History of Present Illness:
69 yo male hx afib on Eliquis, CPAP, CHF, HTN, hypothyroid, Gastric bypass 2000, anemia, anxiety, RBBB, kidney failure, dialysis patient stopped his Eliquis 3 days ago to have several teeth pulled yesterday, took an Eliquis this a.m., states he got
'most of' his dialysis Wed (2 days ago) but towards the end it clotted off. They were unable to do his dialysis today.
Denies CP, SOB, abdominal pain.
Past History
Past History
ED Past Medical History: Arrthythmia, CHF, HTN, Renal failure, Hypothyroidism and Other (Sleep apnea)
ED Past Surgical History: Orthopedic and Other (Gastric bypass)
Social History
Tobacco: Former smoker
Alcohol: None
Drug: None and Other
Personal:
Living: with family
Family History
Family History: Other
Review of Systems
Review of Systems
Allergies reviewed?: Yes
All Other Systems: ROS reviewed and negative except as documented in HPI and ROS
Constitutional: Denies fever or chills
Respiratory: Denies trouble breathing
Cardiac: Denies chest pain
ABD/GI: Denies abdominal pain, nausea, vomiting or diarrhea
: Reports other (dialysis)
Musculoskeletal: Denies edema
Skin: Reports other (dialysis fistula left upper arm)
Neurological: Reports no symptoms
Phy Exam
Physical Exam
Physical Exam:
GENERAL: No acute distress. A&Ox3.
CONSTITUTIONAL: Afebrile.
EYES: clear, conjunctivae normal
ENMT: moist mucus membranes, Pharynx nl
RESPIRATORY: Regular respirations, nonlabored, lungs clear.
CARDIOVASCULAR: Regular rate and rhythm, no murmurs, no rubs.
GI: Soft, nontender, normal BS
MUSCULOSKELETAL: LUE with normal radial pulse, brisk capillary refill. Moves with ease. Well perfused.
SKIN: Warm, dry, pink. LUE without swelling or erythema.
PSYCH: Normal mood and affect. Well kept, interactive and appropriate
NEUROLOGIC: Awake, alert and oriented. No focal neurological deficits
Course
Orders/Labs/Results
Orders:
Orders
11/25/24 17:00
Vascular Surgery Consult Urgent
Consulting Provider: Osmin Martins III
Was physician already notified: Yes
Reason for consult: Clotted fistula LUE
11/25/24 17:02
US Hemodialysis Graft Stat
Comment:
Reason For Exam: clotted av graft?
11/25/24 17:18
Basic Metabolic Panel Urgent
Complete Blood Count/With Diff Urgent
11/25/24 20:25
NEPHROLOGY CONSULT Urgent
Consulting Provider: You Boss
Was physician already notified: Yes
Reason for consult: clotted dialysis fistula, needs dialysis tomorrow.
Abnormal Lab Results
11/25/24
17:18
RBC 3.58 L 10^6/uL
(4.70-6.10)
Hgb 11.2 L g/dL
(13.0-18.0)
Hct 32.1 L %
(39.0-52.0)
MCH 31.3 H pg
(27.0-31.0)
Absolute Lymphs (auto) 1.0 L 10^3/uL
(1.2-3.4)
Absolute Monos (auto) 0.7 H 10^3/uL
(0.1-0.6)
Lymphocytes % 16.0 L %
(20.5-51.1)
Monocytes % 10.6 H %
(1.7-9.3)
BUN 58 H mg/dl
(9-20)
Creatinine 6.0 H* mg/dL
(0.7-1.3)
Calcium 8.2 L mg/dl
(8.4-10.2)
11/25/24 17:18
11/25/24 17:18
Vital Signs
Initial and Last Documented VS:
Initial Vital Signs
Temp Pulse Resp BP Pulse Ox
98.0 F 68 16 108/68 96
11/25/24 12:19 11/25/24 12:19 11/25/24 12:19 11/25/24 12:19 11/25/24 12:19
Last Documented Vital Signs
Temp Pulse Resp BP Pulse Ox
98.0 F 74 30 108/68 97
11/25/24 12:19 11/25/24 19:30 11/25/24 19:30 11/25/24 12:19 11/25/24 19:15
MDM/Problems Addressed
Differential Diagnosis Includes:
clotted hemodialysis fistula
MDM/Problems Addressed:
69 yo male hx afib on Eliquis, CPAP, CHF, HTN, hypothyroid, Gastric bypass 2000, anemia, anxiety, RBBB, kidney failure, dialysis patient stopped his Eliquis 3 days ago to have several teeth pulled yesterday, took an Eliquis this a.m., states he got
'most of' his dialysis Wed (2 days ago) but towards the end it clotted off. They were unable to do his dialysis today.
Denies CP, SOB, abdominal pain.
5:[address] Martins in will see him tomorrow for procedure
8:30 p.m.
CBC unremarkable
CMP BUN/creat 58/6.0
Hospitalist notified of admission. Nephrology Dr. Boss notified and consult in.
*Critical Care Note
Total Time (30-74mins, 75-104mins- exclusive of procedures): Not Applicable
ED Attending Note
-
Portions of this chart may have been created with voice recognition software.� Occasional wrong word or��sound alike� substitutions may have occurred due to the inherent limitations of voice recognition software.
Discharge Plan
Departure
Patient Disposition: Admit
Date of Disposition: 11/25/24
Time of Disposition: 17:13
Admit to: Med/Surg
Presentation/result/management discussed w/ accepting MD/DO: Hospitalist
Condition: Good
Discharge Problem:
Dialysis AV fistula malfunction
Prescriptions:
No Action
Eliquis 5 MG tablet
5 mg PO BID
nicotine (polacrilex) 2 mg Gum
4 mg PO Q4HPRN PRN (Reason: nicotine withrawal) Qty: 0 0RF
levothyroxine 50 mcg Tablet
50 mcg PO DAILY@0700
gabapentin 100 mg Capsule
100 mg PO TID Qty: 90 0RF
torsemide 20 mg Tablet
80 mg PO SUTUTHSA
Rx Instructions:
does not take on HD days
ergocalciferol (vitamin D2) [Vitamin D2] 1,250 mcg (50,000 unit) Capsule
1,250 mcg PO MO
Velphoro 500 mg Tablet,Chewable
1,000 mg PO MEALS
ibuprofen 800 mg Tablet
800 mg PO DAILYPRN PRN (Reason: mild pain)
Patient Comments:
11/25/24: Patient took today, but doctor would rather he take tylenol
metoprolol succinate 25 mg Tablet Extended Release 24 Hr
25 mg PO DAILY
Wegovy 2.4 mg/0.75 mL Pen Injector
2.4 mg SC TU
Patient Comments:
11/25/24: Patient scheduled to increase his dose to 2.4mg next week
Referrals:
Mark Peraza MD [Family Provider] -
Interventions
Interventions:
*Risk Screen - Suicide Last Done: 11/25/24 12:19
*General Assessment Last Done: 11/25/24 17:24
*Neglect/Abuse Screening Last Done: 11/25/24 12:19
*ED- Fall Risk Assessment Last Done: 11/25/24 17:00
*ED COVID-19 Vaccine History Last Done: 11/25/24 17:24
Discharge Date and Time
Print Language: TURKMEN
--- NOTE | 2024-11-25 17:17 | CON.VAS ---
Consultation
Consultation Request
Date/Time Consultation Performed: 11/25/24 5:17 PM
Performing Provider: Lakshmi
Reason for Consultation: Clotted AV graft
Medical History
-
Chief Complaint: Unable to access HD graft
History of Present Illness:
69-year-old male with past medical history A-fib on Eliquis, CPAP, CHF, hypertension, hypothyroid, end-stage renal disease on dialysis [id number], presents to the ER today for inability to access AV graft at dialysis center. Patient
states he got 'most of' his dialysis on Thursday but towards the end it 'clotted off.' Patient had stopped taking his Eliquis 3 days ago for planned dental procedure yesterday. Yesterday he had a few teeth pulled at the dentist and restarted his
Eliquis this morning. Today at dialysis they were able to cannulate 1 needle but could not get the other needle in thus he did not get any dialysis today. He states he came straight to the emergency room from his dialysis center.
Vascular consult for possibly thrombosed AV graft. Patient seen at bedside in the ER with Dr. Martins. There is a palpable thrill at the distal end of the AV graft, feels pulsatile proximal to that. Hand is warm, palpable radial and ulnar pulses.
Past Medical History
Past Medical History: Other (A-fib, CHF, sleep apnea, hypertension, hypothyroidism, end-stage renal disease on HD)
Past Surgical History: Other (Gastric bypass, left upper extremity AV fistula (never matured), left upper extremity AV graft)
Social History
Tobacco: Former Smoker
Alcohol: None
Drug: None
Personal:
Living: With Family
Family History
Family History: Reviewed & Not Pertinent
Allergies / Home Medications
Allergy/AdvReac Type Severity Reaction Status Date / Time
cat dander Allergy sneezing, Verified 11/25/24 12:20
itchy eyes
vancomycin Allergy Rash Verified 11/25/24 12:20
�Medication �Instructions �Recorded �Confirmed �Type
apixaban 5 mg tablet (Eliquis) 5 mg PO BID Blood clot 06/07/21 08/02/24 History
prevention/tx/AFib
nicotine (polacrilex) 2 mg gum 4 mg PO Q4HPRN PRN nicotine 09/01/23 08/02/24 Rx
withrawal #0 ea
amiodarone 200 mg tablet (Pacerone) 200 mg PO DAILY AFib 09/18/23 08/02/24 History
levothyroxine 50 mcg tablet 50 mcg PO DAILY@0700 Thyroid 09/18/23 08/02/24 History
gabapentin 100 mg capsule 100 mg PO TID #90 caps 09/29/23 08/02/24 Rx
ergocalciferol (vitamin D2) 1,250 1,250 mcg PO MO 01/08/24 08/02/24 History
mcg (50,000 unit) capsule (Vitamin
D2)
torsemide 20 mg tablet 80 mg PO SUTUTHSA 01/08/24 08/02/24 History
sucroferric oxyhydroxide 500 mg 500 mg PO TID 07/08/24 08/02/24 History
chewable tablet (Velphoro)
Review of Systems
-
History Source: Patient
All other systems: Negative unless noted
Constitutional: Reports No Symptoms
EENT: Reports No Symptoms
Respiratory: Reports No Symptoms
Cardiac: Reports No Symptoms
Vascular: Denies Leg Pain / Claudication
Abdomen/GI: Reports No Symptoms
: Reports No Symptoms
Musculoskeletal: Reports No Symptoms
Skin: Reports No Symptoms
Neurological: Reports No Symptoms
Endocrine: Reports No Symptoms
Physical Exam
Vital Signs
Temp Pulse Resp BP Pulse Ox
98.0 F 68 16 108/68 96
11/25/24 12:19 11/25/24 12:19 11/25/24 12:19 11/25/24 12:19 11/25/24 12:19
Physical Exam
General: No Apparent Distress
HEENT: Normocephalic and Atraumatic
Respiratory: Non Labored Respirations
Cardiac: Negative JVD
GI: Soft
Musculoskeletal: No Clubbing and No Cyanosis
Skin: Warm
Neuro: Awake, Alert and Oriented
Psych: Calm
Assessment / Plan
-
69-year-old male arrived from HD center for inability to access AV graft
Plan:
- AV graft ultrasound
- Labs pending
- Likely fistula declot in the morning pending ultrasound results
[2024-11-25 17:39] LABS: % Basophils 1.3 % (0-2); % Eosinophils 3.5 % (0-6); % Immature Granulocytes 0.5 % (0-0.5); % Monocytes 10.6 % (1.7-9.3); % Neutrophils 68.1 % (42.2-75.2); Absolute Basophils 0.1 10^3/uL (0-0.2); Absolute Eosinophils 0.2 10^3/uL (0-0.7); Absolute Monocytes 0.7 10^3/uL (0.1-0.6); Absolute Neutrophils 4.3 10^3/uL (1.4-6.5); Hematocrit 32.1 % (39.0-52.0); Hemoglobin 11.2 g/dL (13.0-18.0); Mean Corp Hgb Conc. 34.9 g/dL (33.0-37.0); Mean Corpuscular Hgb 31.3 pg (27.0-31.0); Mean Corpuscular Volume 89.7 fL (80.0-94.0); Mean Platelet Volume 8.9 fL (7.4-10.4); Nucleated Red Blood Cells % 0 % (-); Platelet Count 159 10^3/uL (130-400); Red Blood Cell Count 3.58 10^6/uL (4.70-6.10); Red Cell Dist. Width 14.1 % (11.5-14.5); White Blood Cell Count 6.3 10^3/uL (4.8-10.8)
[2024-11-25 17:43] LABS: Blood Urea Nitrogen 58 mg/dl (9-20); Calcium 8.2 mg/dl (8.4-10.2); Carbon Dioxide 26 mmol/L (22-30); Chloride 102 mmol/L (98-107); Glucose 79 mg/dl (70-99); Sodium 137 mmol/L (135-145); eGFR 9.37
[2024-11-25 20:47] VITALS: BP 123/66
--- NOTE | 2024-11-25 22:07 | HPS.HSE ---
Family Physician
-
Family Physician: Mark Peraza
Chief Complaint
-
Malfunctioning AVF
History of Present Illness
Patient is a 69y M with PMH significant for ESRD on HD, A-Fib and hypertension who presents to ED complaining of non-functioning LUE AVF. Patient states that he had recent dental work / extractions performed. In preparation for this, he held
his Eliquis for about 3 days (last dose was Thursday). He had the dental procedure done on and resumed his Eliquis this AM. Patient attends HD on . He states that there were some clotting issues at the end of his HD session on
Thursday; however, he was able to complete the majority of his planned treatment. When he arrived for HD today, they were unable to cannulate the access at all and patient was advised to present to the ED for further evaluation.
Patient states that he feels well. He has no specific complaints / concerns at present.
Medical History
Past Medical History
Past Medical History: Reports Other
Additional Past Medical History:
ESRD, dialysis Thursday
Paroxysmal atrial fibrillation
Chronic heart failure preserved EF
Chronic peripheral neuropathy
Essential hypertension
DENISSE
Gout
Morbid obesity
Spinal Stenosis
Past Surgical History: Reports Other
Additional Past Surgical History:
Gastric bypass
PVI Ablation x 2
[place] ORIF
LUE AVF / Revision
DCCV
Social History
Tobacco: Former Smoker (Quit 15 years ago.)
Alcohol: Former (Quit 15 years ago)
Drug: None
Personal:
Living: Senior Living
Family History
Family History: Not pertinent
Allergies / Home Medications
Allergies reflects when Allergies were last updated in [employer].
Home Medications with original date entered in [employer]
Allergy/Medication List:
Allergies
Allergy/AdvReac Type Severity Reaction Status Date / Time
cat dander Allergy sneezing, Verified 11/25/24 12:20
itchy eyes
vancomycin Allergy Rash Verified 11/25/24 12:20
Home Medications
apixaban 5 mg tablet (Eliquis) 5 mg PO BID Blood clot prevention/tx/AFib 06/07/21
nicotine (polacrilex) 2 mg gum 4 mg PO Q4HPRN PRN nicotine withrawal #0 ea 09/01/23
levothyroxine 50 mcg tablet 50 mcg PO DAILY@0700 Thyroid 09/18/23
gabapentin 100 mg capsule 100 mg PO TID #90 caps 09/29/23
ergocalciferol (vitamin D2) 1,250 mcg (50,000 unit) capsule (Vitamin D2) 1,250 mcg PO MO 01/08/24
torsemide 20 mg tablet 80 mg PO SUTUTHSA 01/08/24
sucroferric oxyhydroxide 500 mg chewable tablet (Velphoro) 1,000 mg PO MEALS 07/08/24
ibuprofen 800 mg tablet 800 mg PO DAILYPRN PRN mild pain 11/25/24
metoprolol succinate 25 mg tablet,extended release 24 hr 25 mg PO DAILY 11/25/24
semaglutide (weight loss) 2.4 mg/0.75 mL subcutaneous pen injector (Wegovy) 2.4 mg SC TU 11/25/24
Review of Systems
-
History Source: Patient
A 12 point ROS was completed and negative except as noted: Yes
Constitutional: Denies Fever or Chills
Respiratory: Denies Cough or Trouble Breathing
Cardiac: Denies Chest Pain or Palpitations
Abdomen/GI: Denies Abdominal Pain, Nausea, Vomiting or Diarrhea
Musculoskeletal: Denies Joint Pain or Edema
Neurological: Denies Dizzy or Headache
Physical Exam
Vital Signs
Vital Signs
Temp Pulse Resp BP Pulse Ox
98.0 F 76 26 123/66 98
11/25/24 12:19 11/25/24 20:47 11/25/24 20:46 11/25/24 20:47 11/25/24 20:47
Physical Exam
General: Other (69y M in no acute distress.)
HEENT: Moist mucous membranes
Respiratory: Clear; No Wheezes, Rales or Rhonchi
Cardiac: S1/S2 and Regular Rhythm; No Murmur
GI: Soft, Non Tender, Non Distended, Normal Bowel Sounds and Other (Obese)
Musculoskeletal: No Clubbing, No Cyanosis and No Edema
Neuro: AO x 3
Hematologic/Lymphatic: Other (LUE AVF with palpable pulses but no good thrill appreciated.)
Laboratory Results
-
11/25/24 17:18
Laboratory Results
Total Bilirubin Cancelled 11/25/24 17:18
AST Cancelled 11/25/24 17:18
ALT Cancelled 11/25/24 17:18
Alkaline Phosphatase Cancelled 11/25/24 17:18
Impression/Plan
-
A/P: Patient is a 69y M with PMH significant for ESRD on HD, A-Fib and hypertension who presents to ED for evaluation of malfunctioning AVF.
AVF Malfunction
ESRD on HD
- Admit for further evaluation and treatment.
- Appreciate Vascular Surgery evaluation.
- Follow-up US results.
- +/- declot in the AM.
- Nephrology consult for HD needs (hopefully via AVF).
- Labs reviewed - no acute HD needs at present.
Paroxysmal A-Fib / Flutter
- Stable. Continue current med regimen including Eliquis.
Benign Hypertension
Chronic HFpEF
- Stable. Continue torsemide on non-dialysis days.
- Follow I/Os, daily weights.
Hypothyroidism
- Stable. Continue T4 replacement.
DENISSE
- Not currently tolerating CPAP due to discomfort from recent dental procedure.
Obesity due to excess calories
- Affects all aspects of care.
- Encourage healthy diet and increased activity with goal of weight loss.
DVT Prophylaxis: On Eliquis
Code Status: Full
[2024-11-25 22:09] LABS: Potassium 3.6 mmol/L (3.5-5.1)
[2024-11-25 23:22] VITALS: BP 133/78; BMI 40.5
--- NOTE | 2024-11-25 23:30 | PTCARENOTE ---
Received patient from ED. Patient AAOx3, patient assessed and oriented to the unit. VSS. Call yoo in reach. Patient verbalized an understanding to ring for transfers as needed.
[2024-11-26] VITALS (9 sets, daily range): BP systolic 110–133; BP diastolic 48–74
[2024-11-26] MEDS: NEURONTIN 100 MG PO ×3 (00:06→16:29)
[2024-11-26] MEDS: SYNTHROID 50 MCG PO (06:15)
[2024-11-26 06:42] LABS: Hematocrit 33.5 % (39.0-52.0); Hemoglobin 11.3 g/dL (13.0-18.0); Mean Corp Hgb Conc. 33.7 g/dL (33.0-37.0); Mean Corpuscular Hgb 31.4 pg (27.0-31.0); Mean Corpuscular Volume 93.1 fL (80.0-94.0); Mean Platelet Volume 9.4 fL (7.4-10.4); Platelet Count 157 10^3/uL (130-400); White Blood Cell Count 6.4 10^3/uL (4.8-10.8)
[2024-11-26 06:49] LABS: PT 15.5 Sec (11.4-14.6)
[2024-11-26 06:50] LABS: APTT 36.3 Sec (23.4-35.0)
[2024-11-26 07:14] LABS: Blood Urea Nitrogen 65 mg/dl (9-20); Calcium 8.2 mg/dl (8.4-10.2); Carbon Dioxide 25 mmol/L (22-30); Chloride 102 mmol/L (98-107); Estimated Creatinine Clearance 14 ml/min; Glucose 69 mg/dl (70-99); Magnesium 2.4 mg/dl (1.6-2.3); Phosphorus 5.9 mg/dl (2.5-4.5); Potassium 3.9 mmol/L (3.5-5.1); Sodium 140 mmol/L (135-145); eGFR 8.51
--- NOTE | 2024-11-26 08:53 | W.IMMPOSTOP ---
Surgical Immed Post Op Note
-
Primary Surgeon: lynn
Assisting Surgeon: none
Pre-op Diagnosis: failing fistula
Post-op Diagnosis: same
Procedure Performed: fistulogram and angioplasty
Anesthesia Type: sedation
Specimen / Cultures: none
Estimated Blood Loss: min
Complications: none
Operative Findings: excellent thrill
--- NOTE | 2024-11-26 08:57 | W.PN.CT.SURG ---
CT Surgery Operative Note
-
Pre-op Diagnosis: Failing LUE Fistula
Post-op Diagnosis: Same
Procedure: Left u/s guided av graft puncture x 2
Fistulogram
Central Venogram
Angioplasty venous anastomosis 7 mm balloon
Angioplasty arterial anastomosis 6 mm balloon
Primary Surgeon: Adrian Brock MD
Assisting Surgeons: None
Specimen: None
Cultures: None
Complications / Blood Loss: None
Findings: Excellent thrill
Indications for procedure:
Patient is a 29-year-old gentleman with a history of a dialysis graft in his left upper extremity. He had received partial dialysis several days prior and presents to the emergency room with difficulty accessing his dialysis graft. He does have a
pulse prior proximally in the AV graft. Distally there is no pulse appreciated. It is felt there is likely to be a outflow issue with his access. Risk-benefit and alternatives were explained to the patient to proceed with intervention. He
understood these risks to include but not be limited to bleeding, infection, failure to complete the procedure, need for the emergent incomplete or nonresolution of symptoms. He was to proceed forward.
Details of Procedure:
Patient was brought to the operating room identified as Zenon medel. He was placed supine the operative table bisection given to the patient. His left upper extremity was then prepped and draped in the usual sterile fashion. Once it was done
ultrasound guidance was used to evaluate the fistula. The proximal portion of the fistula was evaluated. 1% local was injected over the proximal portion near the arterial anastomosis. The needle was placed into the access of the graft with the
under direct ultrasound guidance. Wire was directed toward the venous anastomosis. A 6 Irish sheath was replaced. Using a glide catheter wire was advanced across the anastomosis. Imaging demonstrate a high-grade nearly occlusive lesion at the
anastomosis. Initially a 6 mm balloon was used to angioplasty. There was improvement but not complete resolution. We upsized to a 7 mm balloon. This improved the flow so significantly through this area. With this there appeared to be minimal
residual stenosis. Once this was done the central venogram portion was performed demonstrating subclavian and innominate veins to be widely patent. The axial vein was widely patent. Once is done we compressed the outflow of the graft and the
arterial side of the graft was imaged. There appeared to be a stenosis near the proximal anastomosis. At this point the sheath directed to the venous side was removed and a [id number] suture was placed at the puncture site. Again under
ultrasound guidance the AV graft was accessed with a needle placed toward the arterial anastomosis. A wire was directed across the arterial anastomosis. A 6 Irish sheath was placed over the wire. A 6 mm angioplasty balloon was used to balloon
the proximal AV graft as well as the anastomosis. Arterial demonstrated this to be significant proved. If completion venous side of the graft was shot which demonstrated some recoil of the area that we had the balloon but significant improved from
preintervention. There is now an excellent thrill in the graft. I did not think it was worth further intervening again at this point. I do think the patient would benefit from a follow-up fistulogram in approximately 1 month with possible
reintervention on the venous anastomosis. I did not want to place a stent at this time. Sheath was removed and [id number] suture was placed at the puncture site. Patient was taken from the operating room to recovery in stable condition.
[2024-11-26 09:36] LABS: Glucose - Point of Care 74 mg/dl (70-99)
--- NOTE | 2024-11-26 09:55 | W.PN.HOSP.TC ---
Today's Communication/Plan
-
For hemodialysis this morning and if he tolerates will discharge patient home.
Assessment / Plan
Assessment / Plan
A/P: Patient is a 69y M with PMH significant for ESRD on HD, A-Fib and hypertension who presents to ED for evaluation of malfunctioning AVF.
AVF Malfunction
ESRD on HD
- Status post AV fistulogram and angioplasty this morning.
- Nephrology consulted for HD needs (hopefully via AVF).
Paroxysmal A-Fib / Flutter
- Stable. Continue current med regimen including Eliquis.
Benign Hypertension
Chronic HFpEF
- Stable. Continue torsemide on non-dialysis days.
- Follow I/Os, daily weights.
Hypothyroidism
- Stable. Continue T4 replacement.
DENISSE
- Not currently tolerating CPAP due to discomfort from recent dental procedure.
Obesity due to excess calories
- Affects all aspects of care. Patient takes semaglutide for weight loss.
- Encourage healthy diet and increased activity with goal of weight loss.
DVT Prophylaxis: On Eliquis
Code Status: Full
Anticipated Discharge: Today
Subjective/Interval History
-
Date of Service: November 26, 2024
Back from AV fistulogram and angioplasty.
Denies any left arm pain.
Denies shortness of breath.
Denies any nausea vomiting.
He was due for his dialysis yesterday and could not get it because of AV fistula malfunction.
Objective Data
-
Labs:
Laboratory Results
11/25/24 11/26/24
21:56 06:18
WBC 6.4
Hgb 11.3 L
Hct 33.5 L
Plt Count 157
PT 15.5 H
INR 1.20
APTT 36.3 H
Sodium 140
Potassium 3.6 3.9
Chloride 102
Carbon Dioxide 25
BUN 65 H
Creatinine 6.5 H*
Glucose 69 L
Calcium 8.2 L
Vital Signs:
Vital Signs
Temp Pulse Resp BP Pulse Ox
97.8 F 62 20 121/71 97
11/26/24 09:40 11/26/24 09:39 11/26/24 09:39 11/26/24 09:39 11/26/24 09:40
I&O
11/25/24 11/26/24 11/27/24
06:59 06:59 06:59
Intake Total 100 / 100
Balance 100 / 100
Physical Exam
-
General: Comfortable
Respiratory: Clear to Auscultation (Anteriorly), Non Labored Respirations and Accessory Resp Muscle Use
Cardiac: Regular Rhythm and S1/S2
Neuro: AO x 3
Psych: Calm
Data Reviewed
-
Labs: Labs Reviewed by me
--- NOTE | 2024-11-26 10:30 | PTCARENOTE ---
pt back from OR for fistula gram,offers no complaints, able to make needs known, ordered breakfast, waiting for HD vitals charted.
[2024-11-26] MEDS: TOPROL XL 25 MG PO (10:37)
[2024-11-26] MEDS: ELIQUIS 5 MG PO (10:37)
[2024-11-26] MEDS: DEMADEX 80 MG PO (10:44)
--- NOTE | 2024-11-26 13:26 | W.CON.NEPH ---
Consultation
-
Date/Time Consultation Requested: November 25, 2024 at 11 PM
Date/Time Consultation Performed: November 26, 2024 at 12 PM
Requesting Provider: Dr. Peraza
Performing Provider: Dr. Boss
Reason for Consultation: End-stage renal disease
Medical History
-
Chief Complaint: Clotted AV fistula
History of Present Illness:
69y M with PMH significant for ESRD on HD, A-Fib and hypertension who presents to ED complaining of non-functioning LUE AVF. Patient states that he had recent dental work / extractions performed. In preparation for this, he held his Eliquis for
about 3 days (last dose was Thursday). He had the dental procedure done on and resumed his Eliquis and unable to do dialysis on Thursday he had most of his treatment on Thursday.
He is status post declot by vascular.
Renal consult for end-stage renal disease
Past Medical History
End-stage renal disease atrial fibrillation hypertension anemia of chronic disease
Social History
Tobacco: Non-Smoker
Alcohol: None
Family History
Family History: Not Pertinent
Allergies / Home Medications
Allergy/AdvReac Type Severity Reaction Status Date / Time
cat dander Allergy sneezing, Verified 11/25/24 23:08
itchy
eyes-PT
HAS
ALLERGY TO
CATS
vancomycin Allergy Rash Verified 11/25/24 12:20
�Medication �Instructions �Recorded �Confirmed �Type
apixaban 5 mg tablet (Eliquis) 5 mg PO BID Blood clot 06/07/21 11/25/24 History
prevention/tx/AFib
nicotine (polacrilex) 2 mg gum 4 mg PO Q4HPRN PRN nicotine 09/01/23 11/25/24 Rx
withrawal #0 ea
levothyroxine 50 mcg tablet 50 mcg PO DAILY@06 Thyroid 09/18/23 11/26/24 History
gabapentin 100 mg capsule 100 mg PO TID #90 caps 09/29/23 11/25/24 Rx
ergocalciferol (vitamin D2) 1,250 1,250 mcg PO MO Kidney Disease 01/08/24 11/25/24 History
mcg (50,000 unit) capsule (Vitamin
D2)
torsemide 20 mg tablet 80 mg PO SUTUTHSA Fluid 01/08/24 11/25/24 History
Retention/Swelling
sucroferric oxyhydroxide 500 mg 1,000 mg PO MEALS Kidney Disease 07/08/24 11/25/24 History
chewable tablet (Velphoro)
ibuprofen 800 mg tablet 800 mg PO DAILYPRN PRN mild pain 11/25/24 11/25/24 History
metoprolol succinate 25 mg 25 mg PO DAILY HYPERTENSION 11/25/24 11/25/24 History
tablet,extended release 24 hr
semaglutide (weight loss) 2.4 2.4 mg SC TU Weight Loss 11/25/24 11/25/24 History
mg/0.75 mL subcutaneous pen
injector (Wegovy)
Review of Systems
-
No chest pain or shortness of breath
All other systems: Negative unless noted
Physical Exam
Vital Signs
Vital Signs
Temp Pulse Resp BP Pulse Ox
97.5 F 61 16 110/67 95
11/26/24 10:55 11/26/24 10:55 11/26/24 10:55 11/26/24 10:55 11/26/24 10:55
Lab Results
WBC 6.4 10^3/uL (4.8-10.8) 11/26/24 06:18
RBC 3.60 10^6/uL (4.70-6.10) L 11/26/24 06:18
Hgb 11.3 g/dL (13.0-18.0) L 11/26/24 06:18
Hct 33.5 % (39.0-52.0) L 11/26/24 06:18
Plt Count 157 10^3/uL (130-400) 11/26/24 06:18
Sodium 140 mmol/L (135-145) 11/26/24 06:18
Potassium 3.9 mmol/L (3.5-5.1) 11/26/24 06:18
Chloride 102 mmol/L (98-107) 11/26/24 06:18
Carbon Dioxide 25 mmol/L (22-30) 11/26/24 06:18
BUN 65 mg/dl (9-20) H 11/26/24 06:18
Creatinine 6.5 mg/dL (0.7-1.3) H* 11/26/24 06:18
eGFR 8.51 11/26/24 06:18
Glucose 69 mg/dl (70-99) L 11/26/24 06:18
Calcium 8.2 mg/dl (8.4-10.2) L 11/26/24 06:18
Phosphorus 5.9 mg/dl (2.5-4.5) H 11/26/24 06:18
Albumin Cancelled 11/25/24 17:18
Physical Exam
General no acute distress
HEENT no cephalic atraumatic extraocular muscle intact no scleral icterus no JVD neck supple
lungs clear to auscultation bilateral
heart regular S1-S2 positive
abdomen soft nontender positive bowel sounds
extremities no edema pulses present bilateral
Neurologically nonfocal alert and oriented x 3
Skin no lesions no abrasions no petechiae
Psych normal affect no bizarre behavior
Data Reviewed
-
Labs: Labs Reviewed by me, Discussed with Nurse and Discussed with Patient
Assessment/Plan
-
IMP:
End-stage renal disease Thursday [place]
Clotted AV fistula status post declot
Paroxysmal atrial fibrillation recent ablation at [facility]
Hypothyroidism
Chronic peripheral neuropathy
Chronic normocytic anemia
DENISSE
Morbid obesity due to excess calories
Plan:
Dialysis today
-then resume HD on Thursday at [facility]
- 3 potassium bath.
Ultrafiltration 1.5 L.
See orders.
--- NOTE | 2024-11-26 13:31 | W.PN.NEPH.HD ---
Assessment
-
Seen on dialysis tolerating treatment
Progress Note - Hemodialysis
-
Date of Service: November 26, 2024
Duration: 30 minutes and 3 hours
Potassium Bath: 3
Calcium Bath: 2.5
Opti-Dialyzer: 160
Ultrafiltration: Other (2kg)
Blood Flow: 400
Dialysate Flow: 600
Heparin: none
EPO: No
--- NOTE | 2024-11-26 13:38 | CM ---
Patient seen at bedside while on HD. Patient HD nurse to communicate the flow sheets from HD to [facility]. Patient confirmed that he lives with his in a 2 story home with no dme and one step to enter. Patient has no past need for VN as
well. Patient uses the [facility] in [place] and [facility] [address]. Patient declined VN at discharge and plan is for discharge home today after HD. IMM reviewed and signed form placed on chart. CM will continue to follow for discharge planning needs.
Plan; home with no needs.
== END 2024-11-26 17:17 | disposition home or self-care (01) | DRG 252 ==
LOC: 2 NORTH 22:15
PROVIDERS: Nurse Practitioner Acute Care; Registered Nurse; Surgery; ADMITTING PHYSICIAN Hospitalist; ATTENDING PHYSICIAN Internal Medicine; CONSULT PHYSICIAN Internal Medicine Nephrology; CONSULT PHYSICIAN Surgery Vascular Surgery; EMERGENCY PHYSICIAN Emergency Medicine; FAMILY PHYSICIAN Surgery Vascular Surgery
PROC: 057F3ZZ Dilation of Left Cephalic Vein, Percutaneous Approach (ICD-10-PCS; 2024-11-26)
PROC: B5171ZZ Fluoroscopy of Left Subclavian Vein using Low Osmolar Contrast (ICD-10-PCS; 2024-11-26)
PROC: 03783ZZ Dilation of Left Brachial Artery, Percutaneous Approach (ICD-10-PCS; 2024-11-26)
PROC: 5A1D70Z Performance of Urinary Filtration, Intermittent, Less than 6 Hours Per Day (ICD-10-PCS; 2024-11-26)
PROC: B51N1ZZ Fluoroscopy of Left Upper Extremity Veins using Low Osmolar Contrast (ICD-10-PCS; 2024-11-26)
PROC: B51W1ZZ Fluoroscopy of Dialysis Shunt/Fistula using Low Osmolar Contrast (ICD-10-PCS; 2024-11-26)
DX: T82.510A Breakdown (mechanical) of surgically created arteriovenous fistula, initial encounter (principal); N18.6 End stage renal disease; I13.2 Hypertensive heart and chronic kidney disease with heart failure and with stage 5 chronic kidney disease, or end stage renal disease; I50.32 Chronic diastolic (congestive) heart failure; Z68.41 Body mass index [BMI] 40.0-44.9, adult; E03.9 Hypothyroidism, unspecified; G47.33 Obstructive sleep apnea (adult) (pediatric); D63.1 Anemia in chronic kidney disease; I48.0 Paroxysmal atrial fibrillation; F41.9 Anxiety disorder, unspecified; I45.10 Unspecified right bundle-branch block; J30.81 Allergic rhinitis due to animal (cat) (dog) hair and dander; T82.818A Embolism due to vascular prosthetic devices, implants and grafts, initial encounter; Y83.2 Surgical operation with anastomosis, bypass or graft as the cause of abnormal reaction of the patient, or of later complication, without mention of misadventure at the time of the procedure; G62.9 Polyneuropathy, unspecified; M10.9 Gout, unspecified; E66.01 Morbid (severe) obesity due to excess calories; Y92.9 Unspecified place or not applicable; Z79.890 Hormone replacement therapy; Z98.84 Bariatric surgery status; Z88.1 Allergy status to other antibiotic agents; Z79.01 Long term (current) use of anticoagulants; Z87.891 Personal history of nicotine dependence; Z99.2 Dependence on renal dialysis
CPT/HCPCS: 80048; 82962; 83735; 84100; 84132; 85025; 85027; 85610; 85730; 87070; 99284; G0257

== ENCOUNTER 2025-03-23 06:03 | Day surgery (SDC) | payer MEDICARE, OTHER, SELFPAY ==
[2025-03-23] VITALS (11 sets, daily range): BP systolic 113–129; BP diastolic 62–77; BMI 41.5
[2025-03-23] MEDS: NSS 500 IV (06:27)
[2025-03-23 06:45] LABS: Hematocrit 34.7 % (39.0-52.0); Hemoglobin 11.3 g/dL (13.0-18.0); Mean Corp Hgb Conc. 32.6 g/dL (33.0-37.0); Mean Corpuscular Volume 92.8 fL (80.0-94.0); Platelet Count 198 10^3/uL (130-400); Red Cell Dist. Width 14.3 % (11.5-14.5)
[2025-03-23 06:48] LABS: INR 1.07; PT 14.4 Sec (11.4-14.6)
[2025-03-23 06:49] LABS: APTT 37.9 Sec (23.4-35.0)
[2025-03-23 07:13] LABS: Blood Urea Nitrogen 20 mg/dl (9-20); Calcium 8.5 mg/dl (8.4-10.2); Carbon Dioxide 30 mmol/L (22-30); Chloride 100 mmol/L (98-107); Estimated Creatinine Clearance 24 ml/min; Glucose 88 mg/dl (70-99); Potassium 3.4 mmol/L (3.5-5.1); Sodium 137 mmol/L (135-145); eGFR 17.78
--- NOTE | 2025-03-23 08:13 | W.SUR.POST ---
Surgical Immediate Post Op
Note
Pre Op Diagnosis: ESRD
Post Op Diagnosis: ESRD, recurrent venous anastomotic stenosis
Procedure Performed: Central venogram, LUE fistulogram, BATTERY RECHARGER/stent to venous outflow anastomosis
Primary Surgeon: Mark Peraza MD
Secondary Surgeons: None
Anesthesia: MAC
Estimated Blood Loss: 3ml
Fluids: See anesthesia flow sheet
Drains/Shunts: N/A
Specimens/Cultures: N/A
Doppler/Duplex/Angio (Y/N): Y, angio
Complications: None
Operative Findings: Reoccurring stenosis at venous anastomosis
--- NOTE | 2025-03-23 08:23 | OR.RPT ---
Operative Report
Operative Report
PROCEDURE DATE: 03/23/2025
Preoperative diagnosis:
1. End-stage renal disease on hemodialysis.
2. 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
Postoperative diagnosis: Same
Procedure:
1. Duplex assisted cannulation of left upper extremity AV graft.
2. Left upper extremity fistulogram and central venogram.
3. Balloon angioplasty and stent placement recurrent venous anastomotic stenosis with Cook Zilver PTX 8 mm x 4 cm self-expanding drug-eluting stent.
4. Supervision and interpretation.
Surgeon: Stu
Vaccine Manager: None
Complications: None
Anesthesia: Local, sedation
Fluoroscopy:
4.1 min
36 mGy
11.18 gy.cm2
Indications for procedure:
End-stage renal disease on hemodialysis with prolonged bleeding after hemodialysis, likelihood of recurrent outflow/venous anastomotic stenosis. Risk/benefits/alternatives of fistulogram and intervention were fully discussed. Patient understood
all wished to proceed.
Description of procedure:
Patient was identified, brought to the operating room. Placed on the table in the supine position. After the adequate administration of anesthesia, the patient was prepped and draped in the standard surgical fashion. A standard preoperative
timeout was undertaken and everybody was in agreement with the plan.
The left upper extremity AV graft was punctured in the distal upper arm just proximal to the antecubital fossa in a central facing direction under duplex assisted guidance with a micropuncture kit in the standard fashion. A 5 Occitan sheath was then
advanced over a 0.035 inch wire. Left upper extremity fistulogram and central venogram demonstrated patent left upper extremity graft (AV graft). The venous anastomosis had a recurrent severe string-like stenosis. This was exactly the same
location as the prior angioplastied site. Beyond here the deep veins drained nicely into the central system. I advanced a Glidewire and glide catheter across the anastomosis and into the more central veins. Better central venography was performed
that demonstrated what appeared to be collateralized veins in the subclavian but the main large vein appeared to be patent. There did not appear to be any significant stenosis. The remainder the central venous system was without any stenosis as
well. At this point I exchanged for a Storq wire and then exchanged for a 6 Occitan sheath. The patient was given 3000 units of intravenous heparin. I ballooned the venous anastomotic stenosis with a 4 mm angioplasty balloon just to dilate the
segment. I planned on stenting it primarily given that this was a recalcitrant recurrent stenosis. After ballooning, I then exchanged for an 8 mm x 4 cm FD9 Group Zilver PTX drug-eluting self-expanding stent which I positioned appropriately. It was
then deployed as per standard. I post angioplastied this with a 7 mm angioplasty balloon. There was still a mild residual waist in the most severely stenotic area but a very small waist. Completion angiogram demonstrated excellent flow. Note
while the balloon had been inflated I obtained a fistulogram to get contrast to reflux across the arterial anastomosis and this demonstrated a patent arterial anastomosis without significant stenosis.
At this point satisfied. I withdrew my wires and catheters. A 4-0 Monocryl pursestring stitch was placed around the sheath entry site and as the sheath was withdrawn this was tied down. Manual pressure was also gently applied to the puncture
site. Hemostasis was fully achieved.
The patient tolerated procedure well. He was transported to the recovery room in stable condition.
[2025-03-23] MEDS: LOW STRENGTH ASPIRIN 81 MG PO (09:29)
== END 2025-03-23 10:05 | disposition home or self-care (01) ==
LOC: CATH 06:03
PROVIDERS: ATTENDING PHYSICIAN Surgery Vascular Surgery; OTHER PHYSICIAN Internal Medicine Interventional Cardiology; PRIMARYCARE PHYSICIAN Internal Medicine
DX: T82.838A Hemorrhage due to vascular prosthetic devices, implants and grafts, initial encounter (principal); Y83.2 Surgical operation with anastomosis, bypass or graft as the cause of abnormal reaction of the patient, or of later complication, without mention of misadventure at the time of the procedure; I13.2 Hypertensive heart and chronic kidney disease with heart failure and with stage 5 chronic kidney disease, or end stage renal disease; N18.6 End stage renal disease; I50.32 Chronic diastolic (congestive) heart failure; I50.84 End stage heart failure; Z99.2 Dependence on renal dialysis; Z87.891 Personal history of nicotine dependence; E66.9 Obesity, unspecified; Z68.39 Body mass index [BMI] 39.0-39.9, adult; Z79.01 Long term (current) use of anticoagulants; Z79.85 Long-term (current) use of injectable non-insulin antidiabetic drugs; Z79.899 Other long term (current) drug therapy; I49.5 Sick sinus syndrome; Z98.84 Bariatric surgery status
CPT/HCPCS: 36903; 80048; 85027; 85610; 85730; 86850; 86900; 86901; C1725; C1769; C1874; C1894; Q9967

== ENCOUNTER 2025-04-07 16:03 | Emergency (ER) | payer MEDICARE, OTHER, SELFPAY ==
[2025-04-07 16:05] VITALS: BP 134/75
[2025-04-07 19:48] VITALS: BMI 39.3
[2025-04-07 19:50] VITALS: BP 110/61
[2025-04-07 20:16] LABS: Hematocrit 35.2 % (39.0-52.0); Hemoglobin 11.7 g/dL (13.0-18.0); Mean Corp Hgb Conc. 33.2 g/dL (33.0-37.0); Mean Corpuscular Volume 92.9 fL (80.0-94.0); Nucleated Red Blood Cells % 0 % (-); Platelet Count 217 10^3/uL (130-400); Red Cell Dist. Width 14.4 % (11.5-14.5)
[2025-04-07] MEDS: DILAUDID 0.5 MG IV (21:38)
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
[2025-04-07 22:08] LABS: ALT (SGPT) 14 U/L (0-50); AST (SGOT) 16 U/L (17-59); Albumin 3.5 g/dl (3.5-5.0); Alkaline Phosphatase 82 U/L (38-126); Blood Urea Nitrogen 17 mg/dl (9-20); Calcium 8.3 mg/dl (8.4-10.2); Carbon Dioxide 32 mmol/L (22-30); Chloride 94 mmol/L (98-107); Estimated Creatinine Clearance 30 ml/min; Glucose 98 mg/dl (70-99); Potassium 3.7 mmol/L (3.5-5.1); Sodium 133 mmol/L (135-145); Total Protein 5.9 g/dl (6.3-8.2); eGFR 22.29
[2025-04-07 22:13] VITALS: BP 145/59
== END 2025-04-07 22:22 | disposition home or self-care (01) ==
LOC: EMR 16:03
PROVIDERS: Emergency Medicine; EMERGENCY PHYSICIAN Emergency Medicine; FAMILY PHYSICIAN Internal Medicine
DX: T22.212A Burn of second degree of left forearm, initial encounter (principal); X08.8XXA Exposure to other specified smoke, fire and flames, initial encounter; E03.9 Hypothyroidism, unspecified; G47.30 Sleep apnea, unspecified; I13.2 Hypertensive heart and chronic kidney disease with heart failure and with stage 5 chronic kidney disease, or end stage renal disease; I50.9 Heart failure, unspecified; N18.6 End stage renal disease; Z87.891 Personal history of nicotine dependence; Z98.84 Bariatric surgery status; Z99.2 Dependence on renal dialysis
CPT/HCPCS: 99283; 80053; 83605; 85025; 87040

== ENCOUNTER 2025-06-27 06:54 | Day surgery (SDC) | payer MEDICARE, OTHER, SELFPAY ==
[2025-06-27 07:42] VITALS: BMI 37.8
--- NOTE | 2025-06-27 10:06 | ITS.CL.CARDI ---
Supervisor Inspecting - Cardioversion
Cardioversion
Procedure Report:
Date of Procedure: 06/27/25
Procedure: Cardioversion
Indication: Symptomatic atrial fibrillation
Performing Physician: Pavel Montano MD
Technique: The patient was brought to the holding area. Signed informed consent was obtained. A time out was called and performed. The patient was anesthetized by the anesthesia service. Anticoagulation status was reviewed and appropriate. R2 pads
were placed anteriorly and posteriorly. A 200 J, 360J and 360J synchronized biphasic shock failed to restore normal sinus rhythm. There were no complications.
Conclusion: Uncomplicated failed cardioversion from atrial fibrillation.
Recommendation: Routine post cardioversion care. Continue penitentiary anticoagulation.
== END 2025-06-27 10:48 | disposition home or self-care (01) ==
LOC: CATH 06:54
PROVIDERS: ATTENDING PHYSICIAN Internal Medicine Cardiovascular Disease; FAMILY PHYSICIAN Internal Medicine; OTHER PHYSICIAN Internal Medicine Interventional Cardiology
DX: I48.19 Other persistent atrial fibrillation (principal); I10 Essential (primary) hypertension; Z99.2 Dependence on renal dialysis; E66.01 Morbid (severe) obesity due to excess calories; I13.2 Hypertensive heart and chronic kidney disease with heart failure and with stage 5 chronic kidney disease, or end stage renal disease; I50.32 Chronic diastolic (congestive) heart failure; N18.6 End stage renal disease; Z79.01 Long term (current) use of anticoagulants; I49.5 Sick sinus syndrome; D64.9 Anemia, unspecified; Z79.890 Hormone replacement therapy; Z79.899 Other long term (current) drug therapy
CPT/HCPCS: 92960

== ENCOUNTER 2025-07-19 06:24 | Day surgery (SDC) | payer MEDICARE, OTHER, SELFPAY ==
[2025-07-19 06:36] VITALS: BP 125/76
[2025-07-19 07:05] LABS: Hematocrit 32.3 % (39.0-52.0); Hemoglobin 10.6 g/dL (13.0-18.0); Mean Corp Hgb Conc. 32.8 g/dL (33.0-37.0); Mean Corpuscular Volume 94.7 fL (80.0-94.0); Platelet Count 238 10^3/uL (130-400); Red Cell Dist. Width 13.6 % (11.5-14.5)
[2025-07-19 07:09] LABS: INR 1.35; PT 16.9 Sec (11.4-14.6)
[2025-07-19 07:10] LABS: APTT 39.0 Sec (23.4-35.0); Blood Urea Nitrogen 24 mg/dl (9-20); Calcium 8.5 mg/dl (8.4-10.2); Carbon Dioxide 31 mmol/L (22-30); Chloride 100 mmol/L (98-107); Glucose 89 mg/dl (70-99); Potassium 3.4 mmol/L (3.5-5.1); Sodium 136 mmol/L (135-145); eGFR 18.41
[2025-07-19] MEDS: NSS 500 IV (07:13)
--- NOTE | 2025-07-19 08:33 | W.SUR.POST ---
Surgical Immediate Post Op
Note
Pre Op Diagnosis: ESRD
Post Op Diagnosis: ESRD
Procedure Performed: LUE fistulagram, central venogram, balloon angioplasty outflow vein stenosis
Primary Surgeon: Stu
Anesthesia: Local and sedation
Estimated Blood Loss: <2cc
Fluids: see anesthesia flow sheet
Drains/Shunts: none
Specimens/Cultures: none
Doppler/Duplex/Angio (Y/N): Y
Complications: none
Operative Findings: +thrill
[2025-07-19 08:45] VITALS: BP 111/67; BP 125/76
[2025-07-19 09:00] VITALS: BP 114/69
--- NOTE | 2025-07-19 09:20 | W.SUR.PREOP ---
Addendum entered and electronically signed by Mark Peraza MD 07/19/25 10:49:
THIS NOTE WAS ENTERED IN ERROR. PLEASE DISREGARD (THERE IS ANOTHER 'PREOPERATIVE NOTE' IN THE CHART WITH THE SAME DATE THAT IS THE CORRECT NOTE.
Original Note:
Pre-Operative Surgical Note
-
I have examined this patient prior to the performance of the scheduled procedure.
The patient's condition is unchanged from the time of the current History and
Physical and the patient is able to undergo the scheduled procedure.
--- NOTE | 2025-07-19 09:21 | OR.RPT ---
Operative Report
Operative Report
PROCEDURE DATE: 07/19/2025
Preoperative diagnosis:
1. End-stage renal disease on hemodialysis.
2. Concern for failing left upper extremity AV access.
Postoperative diagnosis: Same
Procedure:
1. Duplex assisted cannulation of left upper extremity AV graft.
2. Left upper extremity fistulogram and central venogram.
3. Balloon angioplasty of perianastomotic and immediate outflow vein stenosis with 5 mm and 6 mm angioplasty balloon.
Surgeon: Stu
Switch Engineer: None
Complications: None
Anesthesia: Local, sedation
Fluoroscopy:
3 point min
9 mGy
2.72 gy.cm2
Indications for procedure:
History of left upper extremity brachiocephalic AV fistula. This fistula was failing/not maturing. Therefore underwent revision from the immediate outflow vein to the axillary vein with a graft. Subsequently has had angioplasties for stenosis.
Now patient was having issues at dialysis with clot being retrieved while on dialysis. In addition he notes some prolonged bleeding after dialysis. Risk/benefits/alternatives of fistulogram fully discussed. Patient understood and wished to
proceed.
Description of procedure:
Patient was identified, brought to the operating room. Placed on the table in the supine position. After the adequate administration of anesthesia, the patient was prepped and draped in the standard surgical fashion. A standard preoperative
timeout was undertaken and everybody was in agreement with the plan.
I performed ultrasound with a sterile ultrasound probe of the AV access myself. The immediate outflow vein appeared patent but in the segment about 1 cm beyond the anastomosis, there appeared to be significant thickening and severe stenosis. When
I ultrasounded the remainder of the AV graft as well as the stent in the outflow they appeared patent grossly. Therefore I felt I should puncture in a peripheral facing direction. Therefore after infiltrating the skin and subcutaneous tissue
overlying the mid segment of the AV graft, I punctured it using a micropuncture kit under direct duplex ultrasound guidance and a peripheral facing direction. A micropuncture sheath was then advanced. Fistulogram through the micropuncture sheath
demonstrated severe outflow stenosis in the immediate outflow vein segment. The remainder of the AV graft was patent. The venous anastomotic region stent was patent without severe stenosis. There is mild residual chronic stenosis that never fully
resolved even with stent placement but it was very mild. Central venogram demonstrated no evidence of central venous stenosis.
At this point I then exchanged for a 0.035 inch wire and placed a 5 English sheath. The patient was given 5000 units of intravenous heparin. Next I was able to pass a Glidewire into the outflow artery. Multiple attempts were made to try to pass it
into the inflow artery. However I could not get into the inflow artery, and therefore I just took it in the outflow artery. I exchanged out for a Drybar wire after passing a glide catheter. Now I performed balloon angioplasty of the stenotic
segment with a 5 mm x 4 cm angioplasty balloon. Completion angiogram demonstrated improvement but still residual stenosis. I therefore then used a 6 mm angioplasty balloon. Prolonged inflation was undertaken. There was just a minimal waist in
the proximal outflow segment of the balloon that would not completely resolve, but it expanded fairly nicely. Completion angiogram now demonstrated a very good result. There was actually not significant residual stenosis at this point. I was
therefore satisfied. I again imaged the more central outflow of the AV graft that appeared nicely patent as did the stent. At this point the wires and catheters were withdrawn. A 4-0 Monocryl pursestring stitch was placed around the sheath entry
site. This was tied down as the sheath was withdrawn. Manual pressure was also gently applied to the puncture site. Patient tolerated procedure well. Had a palpable thrill in the graft upon completion.
[2025-07-19 09:23] VITALS: BP 111/66
[2025-07-19 09:38] VITALS: BP 96/64
== END 2025-07-19 10:05 | disposition home or self-care (01) ==
LOC: CATH 06:24
PROVIDERS: ATTENDING PHYSICIAN Surgery Vascular Surgery; OTHER PHYSICIAN Internal Medicine Cardiovascular Disease; PRIMARYCARE PHYSICIAN Internal Medicine
DX: T82.858D Stenosis of other vascular prosthetic devices, implants and grafts, subsequent encounter (principal); Y83.2 Surgical operation with anastomosis, bypass or graft as the cause of abnormal reaction of the patient, or of later complication, without mention of misadventure at the time of the procedure; I13.2 Hypertensive heart and chronic kidney disease with heart failure and with stage 5 chronic kidney disease, or end stage renal disease; N18.6 End stage renal disease; I50.32 Chronic diastolic (congestive) heart failure; Z99.2 Dependence on renal dialysis
CPT/HCPCS: 36902; 80048; 85027; 85610; 85730; 86850; 86900; 86901; C1725; C1769; C1894; Q9967